=== PATIENT | male | born 1960 | race African-American/Black ===

== ENCOUNTER 2016-09-17 20:07 | Inpatient (IN) | payer OTHER ==
[2016-09-17 20:48] VITALS: BMI 29.7
--- NOTE | 2016-09-17 22:02 | HP ---
CIWA Score - CIWA Score Nausea/Vomitin Muscle Tremors: 3 Anxiety: 3 Agitation: 3 Paroxysmal Sweats: 2 Orientation: 0-Oriented Tacttile Disturbances: 2-Mild Itch/Numbness/Burn Auditory Disturbances: 2-Mild Harshness/Frighten Visual Disturbances: 2-Mild Sensitivity Headache: 2-Mild CIWA-Ar Total Score: 22 Admission ROS BHS - HPI Chief Complaint: i need help to stop drinking alcohol,cocaine and marijuana Allergies/Adverse Reactions: Allergies Allergy/AdvReac Type Severity Reaction Status Date / Time No Known Drug Allergies Allergy Verified 09/18/16 00:28 lactose AdvReac Severe Verified 09/18/16 00:28 babin AdvReac Severe Vomiting Uncoded 09/18/16 00:28 History of Present Illness: this 56 years old male with alcohol,cocaine and cannabis dependence,seeking detox,last treatment 2024 [facility] 07/23/14 to 07/27/14 syncope alcohol related hepatitis c treated mmtp 130 mgs/day,last medicated today,has bottle to take giovanni fot 09/18/16 depression longest period of sobriety 2 years Exam Limitations: No Limitations - Ebola screening Have you been sick,other than usual withdrawal symptoms: No - Review of Systems Constitutional: Loss of Appetite, Malaise, Night Sweats, Weakness, Unintentional Wgt. Loss EENT: reports: Nose Congestion Respiratory: reports: No Symptoms reported Cardiac: reports: No Symptoms Reported GI: reports: Diarrhea, Nausea, Vomiting, Abdominal cramping : reports: No Symptoms Reported Musculoskeletal: reports: Back Pain, Muscle Pain Integumentary: reports: Dryness Endocrine: reports: No Symptoms Reported Hematology: reports: No Symptoms Reported Psychiatric: reports: No Sypmtoms Reported, Judgement Intact, Mood/Affect Appropiate, Orientated x3, Depressed Patient History - Patient Medical History Hx Anemia: No Hx Asthma: Yes (on albuterol inhaler) Hx Chronic Obstructive Pulmonary Disease (COPD): No Hx Cancer: No Hx Cardiac Disorders: No Hx Congestive Heart Failure: No Hx Hypertension: No Hx Hypercholesterolemia: No Hx Pacemaker: No HX Cerebrovascular Accident: No Hx Seizures: No Hx Dementia: No Hx Diabetes: No Hx Gastrointestinal Disorders: Yes (GERD) Hx Liver Disease: Yes (cirrhosis) Hx Genitourinary Disorders: No Hx Sexually Transmitted Disorders: Yes (gONORRHEA & SYPHILIS) Hx Renal Disease (ESRD): Yes (PT WAS ON KIDNEY DYALISIS 10 YRS AGO) Hx Thyroid Disease: No Hx Human Immunodeficiency Virus (HIV): No (last 07/22 negative ) Hx Hepatitis C: Yes (treated) Hx Depression: Yes (on med) Hx Suicide Attempt: No Hx Bipolar Disorder: No Hx Schizophrenia: No Other Medical History: no suicidal,no homicidal - Patient Surgical History Past Surgical History: Yes Hx Neurologic Surgery: No Hx Cataract Extraction: No Hx Cardiac Surgery: No Hx Lung Surgery: No Hx Breast Surgery: No Hx Breast Biopsy: No Hx Abdominal Surgery: No Hx Appendectomy: No Hx Cholecystectomy: No Hx Genitourinary Surgery: No Hx Section: No Hx Orthopedic Surgery: Yes (lower back (fall) discectomy 20 years ago) - PPD History Previous Implant?: Yes Documented Results: Negative w/o proof Date: 08/03/14 PPD to be Administered?: Yes - Smoking Cessation Smoking history: Current every day smoker Have you smoked in the past 12 months: Yes Aproximately how many cigarettes per day: 10 Cigars Per Day: 20 Hx Chewing Tobacco Use: No Initiated information on smoking cessation: Yes 'Breaking Loose' booklet given: 09/17/16 - Substance & Tx. History Hx Alcohol Use: Yes Hx Substance Use: Yes Substance Use Type: Alcohol, Cocaine Hx Substance Use Treatment: Yes ([facility] 07/23/14 to 07/27/16) - Substances Abused Alcohol Route: Oral Frequency: Daily (3pi) Amount used: 3 pints of vodka,3of 24 ozs of beer Age of first use: 16 Date of Last Use: 09/17/16 Cocaine Route: Smoking Frequency: 1-3 times last 30 days Amount used: 200$ Age of first use: 30 Date of Last Use: 09/06/16 Marijuana/Hashish Route: Smoking Frequency: 3-6 times per week Amount used: 60$ Age of first use: 13 Date of Last Use: 09/06/16 Family Disease History - Family Disease History Family Disease History: Diabetes: Grandparent, [place]: Mother (mom a&w, survived breast ca), Other: Father (dec'd, alcohol ), Brother (none), Sister (2 a&w), Son (none), Daughter (1 a&w with stable asthma) Admission Physical Exam S - Vital Signs Vital Signs: Vital Signs - 24 hr 09/17/16 20:38 Temperature 98.2 F Pulse Rate 85 Respiratory 18 Rate Blood Pressure 136/77 - Physical General Appearance: Yes: Moderate Distress, Tremorous, Irritable, Sweating, Anxious HEENTM: Yes: Normocephalic, Normal Voice, ROMARIO, Pharynx Normal Respiratory: Yes: Lungs Clear, Normal Breath Sounds, No Respiratory Distress Neck: Yes: Within Normal Limits, Supple, Trachea in good position Breast: Yes: Within Normal Limits Cardiology: Yes: Within Normal Limits, Regular Rhythm, Regular Rate, S1, S2 Abdominal: Yes: Within Normal Limits, Normal Bowel Sounds, Non Tender, Flat, Soft Genitourinary: Yes: Within Normal Limits Back: Yes: Muscle Spasm Musculoskeletal: Yes: Back pain, Muscle Pain Extremities: Yes: Tremors Neurological: Yes: drug safety physician II-XII NML intact, Fully Oriented, Alert, Motor Strength 5/5 Integumentary: Yes: Dry Lymphatic: Yes: Within Normal Limits - Diagnostic (1) Alcohol dependence with uncomplicated withdrawal Current Visit: Yes Status: Acute (2) Cocaine dependence Current Visit: Yes Status: Acute (3) Asthma Current Visit: No Status: Chronic Comment: urge to avoid smoking, he will f/u with pcp, cont mdi's. (4) History of back surgery Current Visit: No Status: Chronic (5) Insomnia Current Visit: No Status: Chronic Comment: sleep hygiene reviewed (6) Low back pain Current Visit: No Status: Chronic Comment: MRI results reviewed - refer to neurosurg dr velazquez at [facility] for eval needs to do EMG dc robaxin as not helping , gentle stretches, topical voltaren Rx (7) Methadone maintenance therapy patient Current Visit: No Status: Chronic Comment: counselor Dacia (8) Nicotine dependence Current Visit: No Status: Chronic Comment: counseled cessation, Rx patch (9) Syncope Current Visit: No Status: Chronic (10) GERD (gastroesophageal reflux disease) Current Visit: Yes Status: Acute (11) Hepatitis C Current Visit: No Status: Chronic Comment: Continue to Monitor (12) Lactose intolerance in adult Current Visit: No Status: Chronic Comment: Pt reports improvement on abdominal discomfort. Pt is under much stress related to housing and relationships. Recently threatened his life and is concerned. Pt is seeing psychiatrist but missed last appointment. All repotrts show negative findings for abdominal abnormalities (pending endoscopy report which pt reports was "ok"). possibility that abdominal discomfort is stress-related or lactose intolerance. Pt has reduced lactose intake, however stress continues. Pt will discusse with sandi Rose, And will see psychiatrist in 6 days. Seroquel is prescribed for 7 days untile pt see psychiatrist. (13) History of syphilis Current Visit: Yes Status: Acute Cleared for Admission [facility] - Detox or Rehab [facility] Level of Care: Medically Managed Detox Regimen/Protocol: Librium [facility] Breath Alcohol Content Breath Alcohol Content: 0.168 Urine Drug Screen - Results Drug Screen Negative: No Urine Drug Screen Results: MTD-Methadone
[2016-09-17] MEDS ORDERED: IBUPROFEN 400 MG TABLET (FP) PO PRN (22:25)
[2016-09-17] MEDS ORDERED: MENTHOL/PHENOL 1 EACH UD MM PRN (22:25)
[2016-09-17] MEDS ORDERED: MAGNESIUM CITRATE 300 ML BOTTLE PO PRN (22:25)
[2016-09-17] MEDS ORDERED: P-EPHED 60MG/TRIPROLIDI 2.5MG TABLET PO PRN (22:25)
[2016-09-17] MEDS ORDERED: chlordiazePOXIDE HCL 25 MG CAPSULE PO PRN (22:25)
[2016-09-17] MEDS ORDERED: ACETAMINOPHEN 325 MG TABLET (FP) PO PRN (22:25)
[2016-09-17] MEDS ORDERED: LOPERAMIDE HCL 2 MG CAPSULE PO PRN (22:25)
[2016-09-17] MEDS ORDERED: hydrOXYzine PAMOATE 50 MG CAPSULE (FP) PO PRN (22:25)
[2016-09-17] MEDS ORDERED: guaiFENesin/D-METHORPHAN HB 10 ML UNIT-DOSE CUPS PO PRN (22:25)
[2016-09-17] MEDS ORDERED: chlordiazePOXIDE HCL 25 MG CAPSULE PO ONE (22:25)
[2016-09-17] MEDS ORDERED: MAG HYDROX/AL HYDROX/SIMETH 30 ML UNIT-DOSE CUP PO PRN (22:25)
[2016-09-17] MEDS ORDERED: MAGNESIUM HYDROX 2400MG/30ML ORAL SUSPENSION 30 ML CUP PO PRN (22:25)
[2016-09-17] MEDS ORDERED: ALBUTEROL SO4 6.7 GM HFA INHALER IH PRN (22:32)
[2016-09-18] MEDS: diphenhydrAMINE HCL 50 MG CAPSULE PO PRN ×2 (00:40→22:09)
[2016-09-18] MEDS: chlordiazePOXIDE HCL 25 MG CAPSULE PO SCH ×5 (00:57→22:09)
[2016-09-18] MEDS ORDERED: METHADONE HCL 10 MG TABLET ONE (04:46)
[2016-09-18] MEDS ORDERED: METHADONE HCL 40 MG DISPERSABLE TABLET ONE (04:47)
[2016-09-18] MEDS: METHADONE 120 MG, METHADONE 10 MG PO SCH (05:42)
[2016-09-18] MEDS ORDERED: METHADONE HCL 10 MG TABLET PO ONE (06:00)
[2016-09-18] MEDS: PRENATAL VITAMINS W/ FOLIC ACID TABLET (FP) PO SCH (10:06)
[2016-09-18] MEDS: NICOTINE 21 MG/24 HOURS TOPICAL PATCH TD SCH (10:06)
[2016-09-18] MEDS: BUDESONIDE/FORMETEROL FUMARATE 80/4.5 mcg INHALER IH SCH ×2 (10:07→23:58)
[2016-09-18 10:41] LABS: ALBUMIN 3.2 g/dl (3.4-5.0); ALK PHOS 97 U/L (45-117); ANION GAP 8 (8-16); BILIRUBIN,TOTAL 0.6 mg/dL (0.2-1.0); CALCIUM 8.1 mg/dL (8.5-10.1); CO2 28 mmol/L (21-32); GLUCOSE,RANDOM 100 mg/dL (74-106); SGOT/AST 32 U/L (15-37); SGPT/ALT 27 U/L (12-78)
[2016-09-18 10:48] LABS: WHITE BLOOD COUNT 7.2 K/mm3 (4.0-10.0)
[2016-09-18 10:56] LABS: MCH 29.3 pg (25.7-33.7); MCHC 32.7 g/dl (32.0-35.9); MEAN CELL VOLUME 89.6 fl (80-96); MEAN PLT VOLUME 8.4 fl (7.5-11.1); PLATELET COUNT 232 K/MM3 (134-434); RDW 13.9 % (11.9-15.9)
[2016-09-18 11:54] LABS: PH,URINE 5.5 (5.0-8.0); URINE APPEARANCE CLEAR; URINE BILIRUBIN NEGATIVE (NEGATIVE); URINE BLOOD NEGATIVE (NEGATIVE); URINE COLOR LT. YELLOW; URINE GLUCOSE (UA) NEGATIVE (NEGATIVE); URINE KETONE NEGATIVE (NEGATIVE); URINE LEUK ESTERASE NEGATIVE (NEGATIVE); URINE NITRITE NEGATIVE (NEGATIVE); URINE PROTEIN NEGATIVE (NEGATIVE); URINE UROBILINOGEN 0.2 mg/dL (0.2-1.0)
--- NOTE | 2016-09-18 13:53 | EKG ---
Test Reason : Blood Pressure : / mmHG Vent. Rate : 074 BPM Atrial Rate : 074 BPM P-R Int : 158 ms QRS Dur : 098 ms QT Int : 442 ms P-R-T Axes : 064 046 053 degrees QTc Int : 490 ms NORMAL SINUS RHYTHM PROLONGED QT ABNORMAL ECG WHEN COMPARED WITH ECG OF 19-AUG-2016 11:51, NO SIGNIFICANT CHANGE WAS FOUND Confirmed by LACHO BARBER, ALEXI ([id number]) on 09/18/2016 1:52:52 PM Referred By: Allen Yepez Confirmed By:ALEXI MONK MD
--- NOTE | 2016-09-18 15:18 | PN ---
S CIWA - CIWA Score Nausea/Vomitin Muscle Tremors: 4-Moderate,w/Arms Extend Anxiety: 4-Mod. Anxious/Guarded Agitation: 4-Moderately Restless Paroxysmal Sweats: 2 Orientation: 0-Oriented Tacttile Disturbances: 1-Very Mild Itch/Numbness Auditory Disturbances: 0-None Visual Disturbances: 0-None Headache: 3-Moderate CIWA-Ar Total Score: 21 BHS Progress Note (SOAP) Subjective: Headache, sweating, chills, tremor, diarrhea, interrupted sleep Objective: 09/18/16 15:17 Last Vital Signs Temp Pulse Resp BP Pulse Ox 97.4 F L 76 18 125/79 09/18/16 14:13 09/18/16 14:13 09/18/16 14:13 09/18/16 14:13 Laboratory Tests 09/18/16 09/18/16 09/18/16 08:00 08:00 08:45 WBC 7.2 RBC 4.33 Hgb 12.7 Hct 38.8 MCV 89.6 MCH 29.3 MCHC 32.7 RDW 13.9 Plt Count 232 MPV 8.4 Sodium 143 Potassium 3.8 Chloride 107 Carbon Dioxide 28 Anion Gap 8 BUN 13 D Creatinine 1.0 Creat Clearance w eGFR > 60 Random Glucose 100 Calcium 8.1 L Total Bilirubin 0.6 D AST 32 D ALT 27 Alkaline Phosphatase 97 Total Protein 6.0 L Albumin 3.2 L Urine Color Urine Appearance Urine pH Urine Protein Urine Glucose (UA) Urine Ketones Urine Blood Urine Nitrite Urine Bilirubin Urine Urobilinogen Ur Leukocyte Esterase RPR Titer Nonreactive 09/18/16 09:20 WBC RBC Hgb Hct MCV MCH MCHC RDW Plt Count MPV Sodium Potassium Chloride Carbon Dioxide Anion Gap BUN Creatinine Creat Clearance w eGFR Random Glucose Calcium Total Bilirubin AST ALT Alkaline Phosphatase Total Protein Albumin Urine Color Lt. yellow Urine Appearance Clear Urine pH 5.5 Urine Protein Negative Urine Glucose (UA) Negative Urine Ketones Negative Urine Blood Negative Urine Nitrite Negative Urine Bilirubin Negative Urine Urobilinogen 0.2 Ur Leukocyte Esterase Negative RPR Titer Labs noted Assessment: 09/18/16 15:17 Withdrawal symptoms Plan: Continue detox Encouraged to drink lots of water (water pitcher ordered)
[2016-09-18] MEDS: THIAMINE HCL 100 MG TABLET (FP) PO SCH (22:09)
[2016-09-19] MEDS: chlordiazePOXIDE HCL 25 MG CAPSULE PO SCH ×3 (05:58→17:36)
[2016-09-19] MEDS: METHADONE 120 MG, METHADONE 10 MG PO SCH ×2 (07:49→10:11)
[2016-09-19] MEDS ORDERED: METHADONE HCL 10 MG TABLET ONE (09:10)
[2016-09-19] MEDS ORDERED: METHADONE HCL 40 MG DISPERSABLE TABLET ONE (09:12)
[2016-09-19] MEDS ORDERED: METHADONE HCL 10 MG TABLET PO SCH (10:00)
[2016-09-19] MEDS: BUDESONIDE/FORMETEROL FUMARATE 80/4.5 mcg INHALER IH SCH ×2 (10:11→22:04)
[2016-09-19] MEDS: NICOTINE 21 MG/24 HOURS TOPICAL PATCH TD SCH (10:12)
[2016-09-19] MEDS: PRENATAL VITAMINS W/ FOLIC ACID TABLET (FP) PO SCH (10:12)
--- NOTE | 2016-09-19 10:59 | PN ---
[facility] CIWA - CIWA Score Nausea/Vomitin-Mild Nausea/No Vomiting Muscle Tremors: 4-Moderate,w/Arms Extend Anxiety: 4-Mod. Anxious/Guarded Agitation: 3 Paroxysmal Sweats: 3 Orientation: 0-Oriented Tacttile Disturbances: 0-None Auditory Disturbances: 0-None Visual Disturbances: 0-None Headache: 0-None Present CIWA-Ar Total Score: 15 S Progress Note (SOAP) Subjective: Anxiety,tremors,sweating,interrupted sleep. Objective: 09/19/16 10:55 Vital Signs - 8 hr 09/19/16 09/19/16 09/19/16 03:28 06:28 09:34 Temperature 96.9 F L 98.8 F Pulse Rate 72 83 Respiratory 16 16 20 Rate Blood Pressure 128/79 120/80 Laboratory Last Values WBC 7.2 K/mm3 (4.0-10.0) 09/18/16 08:45 RBC 4.33 M/mm3 (4.00-5.60) 09/18/16 08:45 Hgb 12.7 GM/dL (11.7-16.9) 09/18/16 08:45 Hct 38.8 % (35.4-49) 09/18/16 08:45 MCV 89.6 fl (80-96) 09/18/16 08:45 MCH 29.3 pg (25.7-33.7) 09/18/16 08:45 MCHC 32.7 g/dl (32.0-35.9) 09/18/16 08:45 RDW 13.9 % (11.9-15.9) 09/18/16 08:45 Plt Count 232 K/MM3 (134-434) 09/18/16 08:45 MPV 8.4 fl (7.5-11.1) 09/18/16 08:45 Sodium 143 mmol/L (136-145) 09/18/16 08:00 Potassium 3.8 mmol/L (3.5-5.1) 09/18/16 08:00 Chloride 107 mmol/L (98-107) 09/18/16 08:00 Carbon Dioxide 28 mmol/L (21-32) 09/18/16 08:00 Anion Gap 8 (8-16) 09/18/16 08:00 BUN 13 mg/dL (7-18) D 09/18/16 08:00 Creatinine 1.0 mg/dL (0.7-1.3) 09/18/16 08:00 Creat Clearance w eGFR > 60 (>60) 09/18/16 08:00 Random Glucose 100 mg/dL (74-106) 09/18/16 08:00 Calcium 8.1 mg/dL (8.5-10.1) L 09/18/16 08:00 Total Bilirubin 0.6 mg/dL (0.2-1.0) D 09/18/16 08:00 AST 32 U/L (15-37) D 09/18/16 08:00 ALT 27 U/L (12-78) 09/18/16 08:00 Alkaline Phosphatase 97 U/L (45-117) 09/18/16 08:00 Total Protein 6.0 g/dl (6.4-8.2) L 09/18/16 08:00 Albumin 3.2 g/dl (3.4-5.0) L 09/18/16 08:00 Urine Color Lt. yellow 09/18/16 09:20 Urine Appearance Clear 09/18/16 09:20 Urine pH 5.5 (5.0-8.0) 09/18/16 09:20 Ur Specific [place] <= 1.005 (1.005-1.025) 09/18/16 09:20 Urine Protein Negative (NEGATIVE) 09/18/16 09:20 Urine Glucose (UA) Negative (NEGATIVE) 09/18/16 09:20 Urine Ketones Negative (NEGATIVE) 09/18/16 09:20 Urine Blood Negative (NEGATIVE) 09/18/16 09:20 Urine Nitrite Negative (NEGATIVE) 09/18/16 09:20 Urine Bilirubin Negative (NEGATIVE) 09/18/16 09:20 Urine Urobilinogen 0.2 mg/dL (0.2-1.0) 09/18/16 09:20 Ur Leukocyte Esterase Negative (NEGATIVE) 09/18/16 09:20 RPR Titer Nonreactive (NONREACTIVE) 09/18/16 08:00 labs noted Assessment: 09/19/16 10:57 Withdrawal sx. Plan: Continue detox
--- NOTE | 2016-09-19 13:18 | CONSULT ---
[facility] Psychiatric Consult - Data Date of interview: 09/19/16 Admission source: [facility] Identifying data: Readmission to [facility] for this 56 y/o AA male seelking detox treatment on for opioid,cocaine,alcohol and mariuana dependence.Patient is single,a father of one,homeless,unemployed and supported on SSI benefits. Substance Abuse History: Confirmed by patient.Discussed in this session.Mr Loredo indicates that this report is an accurate account of his patterns of substance use. Smoking Cessation. Smoking history: Current every day smoker. Have you smoked in the past 12 months: Yes. Aproximately how many cigarettes per day: 10. Cigars Per Day: 20. Hx Chewing Tobacco Use: No. Initiated information on smoking cessation: Yes. 'Breaking Loose' booklet given: . - Substance & Tx. History. Hx Alcohol Use: Yes. Hx Substance Use: Yes. Substance Use Type: Alcohol, Cocaine. Hx Substance Use Treatment: Yes ([facility] to 07/27/16). - Substances Abused. Alcohol. Route: Oral. Frequency : Daily (3pi). Amount used: 3 pints of vodka,3of 24 ozs of beer. Age of first use: 16. Date of Last Use: 09/17/16. Cocaine. Route: Smoking. Frequency: 1-3 times last 30 days. Amount used: 200$. Age of first use: 30. Date of Last Use: 09/06/16. Marijuana/Hashish. Route: Smoking. Frequency: 3-6 times per week. Amount used: 60$. Age of first use: 13. Date of Last Use: 02/22 Medical History: Significant for bilateral carpal tunnel syndrome,COPD,vitamin D deficiency,GERD,liver cirrhosis,hepatitis C,bronchial asthma and a past history of treatment for gonorrhea + syphilis.Noted report of remote history of renal failure (managed with dialysis) 10 years ago + orthosurgery (discectomy) twenty years ago according to records. Psychiatric History: Patient denies history of psychiatric hospitalizations.Mr Loredo endorses the diagnosis of MDD and maintenance with seroquel 100 mg/hs + remeron 30 mg/hs.Patient is under the care of psychiatrist Dr Farah at the [facility] methadone program (130 mg/day).No reported history of suicide attempts. Physical/Sexual Abuse/Trauma History: Patient denies. Additional Comment: Urine Drug Screen Results: MTD-Methadone.Noted. Mental Status Exam - Mental Status Exam Alert and Oriented to: Time, Person Cognitive Function: Good Patient Appearance: Well Groomed Mood: Hopeful, Euthymic Affect: Appropriate, Normal Range Patient Behavior: Appropriate, Cooperative Speech Pattern: Clear Voice Loudness: Normal Thought Process: Goal Oriented Thought Disorder: Not Present Hallucinations: Denies Suicidal Ideation: Denies Homicidal Ideation: Denies Insight/Judgement: Poor Sleep: Poorly, Difficulty falling asleep Appetite: Good Muscle strength/Tone: Normal Gait/Station: Normal Psychiatric Findings - Problem List ([place] 1, 2,3) (1) Alcohol dependence with uncomplicated withdrawal Current Visit: Yes Status: Acute (2) Opioid dependence on agonist therapy Current Visit: Yes Status: Acute (3) Cocaine dependence Current Visit: Yes Status: Acute (4) Nicotine dependence Current Visit: Yes Status: Acute Comment: counseled cessation, Rx patch (5) Drug-induced mood disorder Current Visit: Yes Status: Acute (6) GERD (gastroesophageal reflux disease) Current Visit: Yes Status: Chronic (7) Back pain Current Visit: Yes Status: Chronic Comment: Consider work -up, X-rays, MRI, Referral to orthopedist (8) History of syphilis Current Visit: Yes Status: Chronic (9) Asthma Current Visit: Yes Status: Chronic Comment: urge to avoid smoking, he will f/u with pcp, cont mdi's. (10) Hepatitis C Current Visit: Yes Status: Chronic Comment: Continue to Monitor (11) History of back surgery Current Visit: Yes Status: Chronic (12) Carpal tunnel syndrome, bilateral Current Visit: Yes Status: Chronic Comment: still needs to do EMG will Rx cock up splints (Rx gave again, referred to try [facility] surgical supply as he is having a hard time finding someone who takes his insurance) carpal stretches reviewed (13) Lactose intolerance in adult Current Visit: Yes Status: Chronic Comment: Pt reports improvement on abdominal discomfort. Pt is under much stress related to housing and relationships. Recently threatened his life and is concerned. Pt is seeing psychiatrist but missed last appointment. All repotrts show negative findings for abdominal abnormalities (pending endoscopy report which pt reports was "ok"). possibility that abdominal discomfort is stress-related or lactose intolerance. Pt has reduced lactose intake, however stress continues. Pt will discusse with sandi Rose, And will see psychiatrist in 6 days. Seroquel is prescribed for 7 days untile pt see psychiatrist. (14) Vitamin D deficiency Current Visit: Yes Status: Chronic Comment: D = 22 - will replete with D [id number] biw and monitor ongoing (15) Insomnia Current Visit: No Status: Chronic Comment: sleep hygiene reviewed - Initial Treatment Plan Initial Treatment Plan: Psychoeducation.Detoxification in progress.Medications : seroquel 100 mg po hs + remeron 15 mg po hs (reduced as a precaution against oversedation).Side effects/benefits of both drugs are discussed with the patient.Mr Loredo agrees to follow this careplan.Observation.
[2016-09-19] MEDS: THIAMINE HCL 100 MG TABLET (FP) PO SCH (22:04)
[2016-09-19] MEDS: QUEtiapine FUMARATE 100 MG TABLET (FP) PO SCH (22:04)
[2016-09-19] MEDS: MIRTAZAPINE 15 MG TABLET (FP) PO SCH (22:04)
[2016-09-19] MEDS: chlordiazePOXIDE 5 MG CAPSULE PO SCH (22:04)
[2016-09-20] MEDS: chlordiazePOXIDE 5 MG CAPSULE PO SCH ×3 (05:45→16:56)
[2016-09-20] MEDS ORDERED: METHADONE HCL 10 MG TABLET ONE (08:45)
[2016-09-20] MEDS ORDERED: METHADONE HCL 40 MG DISPERSABLE TABLET ONE (08:46)
--- NOTE | 2016-09-20 09:06 | PN ---
BHS Progress Note (SOAP) Subjective: Sweating,interrupted sleep,restless Objective: 09/20/16 09:05 Vital Signs - 8 hr 09/20/16 06:14 Temperature 97.4 F L Pulse Rate 70 Respiratory 16 Rate Blood Pressure 139/81 Laboratory Last Values WBC 7.2 K/mm3 (4.0-10.0) 09/18/16 08:45 RBC 4.33 M/mm3 (4.00-5.60) 09/18/16 08:45 Hgb 12.7 GM/dL (11.7-16.9) 09/18/16 08:45 Hct 38.8 % (35.4-49) 09/18/16 08:45 MCV 89.6 fl (80-96) 09/18/16 08:45 MCH 29.3 pg (25.7-33.7) 09/18/16 08:45 MCHC 32.7 g/dl (32.0-35.9) 09/18/16 08:45 RDW 13.9 % (11.9-15.9) 09/18/16 08:45 Plt Count 232 K/MM3 (134-434) 09/18/16 08:45 MPV 8.4 fl (7.5-11.1) 09/18/16 08:45 Sodium 143 mmol/L (136-145) 09/18/16 08:00 Potassium 3.8 mmol/L (3.5-5.1) 09/18/16 08:00 Chloride 107 mmol/L (98-107) 09/18/16 08:00 Carbon Dioxide 28 mmol/L (21-32) 09/18/16 08:00 Anion Gap 8 (8-16) 09/18/16 08:00 BUN 13 mg/dL (7-18) D 09/18/16 08:00 Creatinine 1.0 mg/dL (0.7-1.3) 09/18/16 08:00 Creat Clearance w eGFR > 60 (>60) 09/18/16 08:00 Random Glucose 100 mg/dL (74-106) 09/18/16 08:00 Calcium 8.1 mg/dL (8.5-10.1) L 09/18/16 08:00 Total Bilirubin 0.6 mg/dL (0.2-1.0) D 09/18/16 08:00 AST 32 U/L (15-37) D 09/18/16 08:00 ALT 27 U/L (12-78) 09/18/16 08:00 Alkaline Phosphatase 97 U/L (45-117) 09/18/16 08:00 Total Protein 6.0 g/dl (6.4-8.2) L 09/18/16 08:00 Albumin 3.2 g/dl (3.4-5.0) L 09/18/16 08:00 Urine Color Lt. yellow 09/18/16 09:20 Urine Appearance Clear 09/18/16 09:20 Urine pH 5.5 (5.0-8.0) 09/18/16 09:20 Ur Specific [place] <= 1.005 (1.005-1.025) 09/18/16 09:20 Urine Protein Negative (NEGATIVE) 09/18/16 09:20 Urine Glucose (UA) Negative (NEGATIVE) 09/18/16 09:20 Urine Ketones Negative (NEGATIVE) 09/18/16 09:20 Urine Blood Negative (NEGATIVE) 09/18/16 09:20 Urine Nitrite Negative (NEGATIVE) 09/18/16 09:20 Urine Bilirubin Negative (NEGATIVE) 09/18/16 09:20 Urine Urobilinogen 0.2 mg/dL (0.2-1.0) 09/18/16 09:20 Ur Leukocyte Esterase Negative (NEGATIVE) 09/18/16 09:20 RPR Titer Nonreactive (NONREACTIVE) 09/18/16 08:00 labs noted Assessment: 09/20/16 09:06 Withdrawal sx. Plan: Continue detox
[2016-09-20] MEDS: METHADONE 120 MG, METHADONE 10 MG PO SCH (10:07)
[2016-09-20] MEDS: BUDESONIDE/FORMETEROL FUMARATE 80/4.5 mcg INHALER IH SCH ×2 (10:07→22:26)
[2016-09-20] MEDS: PRENATAL VITAMINS W/ FOLIC ACID TABLET (FP) PO SCH (10:08)
[2016-09-20] MEDS: NICOTINE 21 MG/24 HOURS TOPICAL PATCH TD SCH (10:09)
[2016-09-20] MEDS: QUEtiapine FUMARATE 100 MG TABLET (FP) PO SCH (22:25)
[2016-09-20] MEDS: THIAMINE HCL 100 MG TABLET (FP) PO SCH (22:26)
[2016-09-20] MEDS: MIRTAZAPINE 15 MG TABLET (FP) PO SCH (22:26)
[2016-09-20] MEDS: chlordiazePOXIDE HCL 10 MG CAPSULE PO SCH (22:26)
[2016-09-21] MEDS: chlordiazePOXIDE HCL 10 MG CAPSULE PO SCH ×2 (06:04→10:10)
[2016-09-21] MEDS ORDERED: METHADONE HCL 40 MG DISPERSABLE TABLET ONE (09:17)
[2016-09-21] MEDS ORDERED: METHADONE HCL 10 MG TABLET ONE (09:17)
[2016-09-21 09:53] VITALS: BP 136/84; PULSE 100; TEMP 97.4
[2016-09-21] MEDS: NICOTINE 21 MG/24 HOURS TOPICAL PATCH TD SCH (10:09)
[2016-09-21] MEDS: METHADONE 120 MG, METHADONE 10 MG PO SCH (10:09)
[2016-09-21] MEDS: PRENATAL VITAMINS W/ FOLIC ACID TABLET (FP) PO SCH (10:09)
[2016-09-21] MEDS: BUDESONIDE/FORMETEROL FUMARATE 80/4.5 mcg INHALER IH SCH (10:09)
--- NOTE | 2016-09-21 11:07 | DS ---
[facility] Detox Discharge Summary Admission Date: 09/17/16 Discharge Date: 09/21/16 - History Present History: Alcohol Dependence, Cocaine Dependence, MMTP Additional Comments: PT. RETURNING TO [facility] MMTP PROGRAM AND [facility]IENT [facility]REATMENT CLINIC. PATIENT ADVISED TO FOLLOW-UP THERE FOR AFTERCARE PER DISCHARGE ARRANGEMENT. Pertinent Past History: COPD, MMTP, Carpal Tunnel Syndrome, History of Syncope, Asthma, GERD, Insomnia, Hep C, Low Back pain, Vitamin D Deficiency, Lactose Intolerance. - Physical Exam Results Vital Signs: Vital Signs Temperature 97.4 F L 09/21/16 09:53 Pulse Rate 100 H 09/21/16 09:53 Respiratory Rate 18 09/21/16 09:53 Blood Pressure 136/84 09/21/16 09:53 O2 Sat by Pulse Oximetry (%) Pertinent Admission Physical Exam Findings: WITHDRAWAL SYMPTOMS. Laboratory Tests 09/18/16 09/18/16 09/18/16 08:00 08:00 08:45 WBC 7.2 RBC 4.33 Hgb 12.7 Hct 38.8 MCV 89.6 MCH 29.3 MCHC 32.7 RDW 13.9 Plt Count 232 MPV 8.4 Sodium 143 Potassium 3.8 Chloride 107 Carbon Dioxide 28 Anion Gap 8 BUN 13 D Creatinine 1.0 Creat Clearance w eGFR > 60 Random Glucose 100 Calcium 8.1 L Total Bilirubin 0.6 D AST 32 D ALT 27 Alkaline Phosphatase 97 Total Protein 6.0 L Albumin 3.2 L Urine Color Urine Appearance Urine pH Ur Specific [place] Urine Protein Urine Glucose (UA) Urine Ketones Urine Blood Urine Nitrite Urine Bilirubin Urine Urobilinogen Ur Leukocyte Esterase RPR Titer Nonreactive 09/18/16 09:20 WBC RBC Hgb Hct MCV MCH MCHC RDW Plt Count MPV Sodium Potassium Chloride Carbon Dioxide Anion Gap BUN Creatinine Creat Clearance w eGFR Random Glucose Calcium Total Bilirubin AST ALT Alkaline Phosphatase Total Protein Albumin Urine Color Lt. yellow Urine Appearance Clear Urine pH 5.5 Ur Specific [place] <= 1.005 Urine Protein Negative Urine Glucose (UA) Negative Urine Ketones Negative Urine Blood Negative Urine Nitrite Negative Urine Bilirubin Negative Urine Urobilinogen 0.2 Ur Leukocyte Esterase Negative RPR Titer LABS NOTED. - Treatment Hospital Course: Detox Protocol Followed, Detoxed Safely, Responded well, Discharged Condition Good Patient has Accepted a Rehab Referral to: PT. RETURNING TO [facility] MMTP PROGRAM AND [facility]. - Medication Discharge Medications: Ambulatory Orders Mirtazapine [Remeron -] 30 mg PO HS #30 tablet 08/26/14 Cholecalciferol (Vitamin D3) [Vitamin D3] 50,000 unit PO MOFR 08/27/15 Famotidine [Pepcid -] 20 mg PO DAILY 08/27/15 Nortriptyline HCl [Pamelor -] 25 mg PO HS 10/29/15 Nadolol 1 tab PO DAILY #30 tablet 02/04/16 Albuterol Sulfate Inhaler - [Ventolin HFA Inhaler -] 2 inh PO PRN PRN #1 cartridge 08/19/16 Budesonide/Formeterol Fumarate [SYMBICORT 80/4.5mcg -] 1 inh PO BID #1 cartridge 08/19/16 Cholecalciferol (Vitamin D3) [D3-50] 50,000 unit PO WEEKLY #8 capsule 08/19/16 Thiamine HCl [Vitamin B1 -] 100 mg PO HS #30 tablet 08/19/16 Quetiapine Fumarate [Seroquel] 100 tab PO DAILY #6 tab 09/02/16 Mirtazapine [Remeron -] 30 mg PO HS #30 tablet 09/19/16 Quetiapine Fumarate [Seroquel] 100 mg PO HS #30 tablet 09/19/16 - Diagnosis (1) Alcohol dependence with uncomplicated withdrawal Status: Acute (2) Cocaine dependence Status: Acute Qualifiers: Substance use status: uncomplicated Qualified Code(s): F14.20 - Cocaine dependence, uncomplicated (3) Drug-induced mood disorder Status: Acute (4) Nicotine dependence Status: Chronic Qualifiers: Nicotine product type: cigarettes Substance use status: uncomplicated Qualified Code(s): F17.210 - Nicotine dependence, cigarettes, uncomplicated (5) Opioid dependence on agonist therapy Status: Chronic (6) Asthma Status: Chronic Qualifiers: Asthma severity: mild persistent Asthma complication type: uncomplicated Qualified Code(s): J45.30 - Mild persistent asthma, uncomplicated (7) COPD (chronic obstructive pulmonary disease) Status: Chronic Qualifiers: COPD type: unspecified COPD Qualified Code(s): J44.9 - Chronic obstructive pulmonary disease, unspecified (8) Carpal tunnel syndrome, bilateral Status: Chronic (9) GERD (gastroesophageal reflux disease) Status: Chronic Qualifiers: Esophagitis presence: esophagitis presence not specified Qualified Code(s): K21.9 - Gastro-esophageal reflux disease without esophagitis (10) Hepatitis C Status: Chronic Qualifiers: Viral hepatitis chronicity: chronic Hepatic coma status: without hepatic coma Qualified Code(s): B18.2 - Chronic viral hepatitis C (11) History of back surgery Status: Chronic (12) History of syphilis Status: Chronic (13) Insomnia Status: Chronic Qualifiers: Insomnia type: unspecified Qualified Code(s): G47.00 - Insomnia, unspecified (14) Lactose intolerance in adult Status: Chronic (15) Methadone maintenance therapy patient Status: Chronic - AMA Did Patient Leave Against Medical Advice: No
== END 2016-09-21 10:54 | disposition home or self-care (01) | DRG 773 ==
LOC: YASAS 20:07 → Y3N 22:26
PROVIDERS: ADMIT Internal Medicine; ATTEND Internal Medicine
PROC: HZ2ZZZZ Detoxification Services for Substance Abuse Treatment (ICD-10-PCS; principal; 2016-09-17)
DX: F10.230 Alcohol dependence with withdrawal, uncomplicated (principal); F11.20 Opioid dependence, uncomplicated; F14.20 Cocaine dependence, uncomplicated; F17.210 Nicotine dependence, cigarettes, uncomplicated; F19.24 Other psychoactive substance dependence with psychoactive substance-induced mood disorder; J45.30 Mild persistent asthma, uncomplicated; J44.9 Chronic obstructive pulmonary disease, unspecified; G56.03 Carpal tunnel syndrome, bilateral upper limbs; K21.9 Gastro-esophageal reflux disease without esophagitis; B18.2 Chronic viral hepatitis C; G47.00 Insomnia, unspecified; E73.9 Lactose intolerance, unspecified; Z87.438 Personal history of other diseases of male genital organs
CPT/HCPCS: 36415; 80053; 81003; 85027; 86593; 93005; 93010

== ENCOUNTER 2016-11-01 10:45 | Inpatient (IN) | payer OTHER ==
[2016-11-01 12:43] VITALS: BMI 27.8
--- NOTE | 2016-11-01 13:09 | HP ---
Screened but not Admitted - Documentation of Visit Screened but not Admitted: Yes Left Prior to Completion of Assessment: No Insurance Authorization Denied: No Patient Does Not Meet Criteria for Admission: Yes Level of Care Recommended at this Time: Other ([facility], [place], [place] Alternative Treatment/Prison Info Provided: No Additional Information/Explanation: PATIENT DOES NOT MEET CRITERIA FOR ADMISSION TO DETOX AT THIS TIME. PATIENT REFERRED TO [facility] ([place], [place] . ARRANGEMENTS MADE FOR PATIENT TO BE DIRECTLY PICKED UP BY [facility] TRANSPORTATION.
--- NOTE | 2016-11-01 18:20 | HP ---
CIWA Score - CIWA Score Nausea/Vomitin-Mild Nausea/No Vomiting Muscle Tremors: 4-Moderate,w/Arms Extend Anxiety: 4-Mod. Anxious/Guarded Agitation: 4-Moderately Restless Paroxysmal Sweats: 1-Minimal Palms Moist Orientation: 0-Oriented Tacttile Disturbances: 0-None Auditory Disturbances: 0-None Visual Disturbances: 0-None Headache: 0-None Present CIWA-Ar Total Score: 14 Admission ROS BHS - HPI Chief Complaint: WITHDRAWAL SX Allergies/Adverse Reactions: Allergies Allergy/AdvReac Type Severity Reaction Status Date / Time lactose AdvReac Vomiting Verified 11/01/16 16:56 NKDA Allergy Uncoded 11/01/16 16:56 mayonnaise AdvReac Vomiting Uncoded 11/01/16 16:55 History of Present Illness: 56 YEARS OLD MALE WITH LONG HISTORY OF ALCOHOL MARIJUANA COCAINE PCP NICOTINE DEPENDENCE HAS ASTHMA GERD COPD AND DEPRESSION IS ADMITTED TO DETOX PATIENT STATES THAT [facility] DOES NOT HAVE BED AVAILABLE FOR HIM TODAY, RECEIVED ONSITE COORDINATOR REPORTS THAT THE PATIENT CAN BE ADMITTED TO [facility] Limitations: No Limitations - Ebola screening Have you traveled outside of the country in the last 21 days: No Have you had contact with anyone from an Ebola affected area: No Have you been sick,other than usual withdrawal symptoms: No Do you have a fever: No - Review of Systems Constitutional: Changes in sleep, Weight Stable EENT: reports: Blurred Vision (NEED READING GLASSES), Dental Problems (MULTIPLE TEETH MISSING) Respiratory: reports: SOB with Exertion, Productive cough (YELLOWISH) Cardiac: reports: No Symptoms Reported GI: reports: Nausea, Poor Fluid Intake, Indigestion, Abdominal cramping : reports: No Symptoms Reported Musculoskeletal: reports: Back Pain, Joint Pain, Muscle Pain, Neck Pain Integumentary: reports: No Symptoms Reported Neuro: reports: Tremors Endocrine: reports: No Symptoms Reported Hematology: reports: No Symptoms Reported Psychiatric: reports: Judgement Intact, Orientated x3, Anxious, Depressed Other Systems: Reviewed and Negative Patient History - Patient Medical History Hx Anemia: No Hx Asthma: Yes Hx Chronic Obstructive Pulmonary Disease (COPD): Yes Hx Cancer: No Hx Cardiac Disorders: No Hx Congestive Heart Failure: No Hx Hypertension: No Hx Hypercholesterolemia: No Hx Pacemaker: No HX Cerebrovascular Accident: No Hx Seizures: No Hx Dementia: No Hx Diabetes: No Hx Gastrointestinal Disorders: Yes (acid reflux) Hx Liver Disease: Yes (cirrhosis) Hx Genitourinary Disorders: No Hx Sexually Transmitted Disorders: No Hx Renal Disease (ESRD): No Hx Thyroid Disease: No Hx Human Immunodeficiency Virus (HIV): No (last 07/22 negative ) Hx Hepatitis C: Yes (treated) Hx Depression: Yes Hx Suicide Attempt: No Hx Bipolar Disorder: No Hx Schizophrenia: No - Patient Surgical History Past Surgical History: Yes Hx Neurologic Surgery: No Hx Cataract Extraction: No Hx Cardiac Surgery: No Hx Lung Surgery: No Hx Breast Surgery: No Hx Breast Biopsy: No Hx Abdominal Surgery: No Hx Appendectomy: No Hx Cholecystectomy: No Hx Genitourinary Surgery: No Hx Orthopedic Surgery: Yes (lower back (fall) discectomy 20 years ago) Anesthesia Reaction: No - PPD History Previous Implant?: Yes Documented Results: Negative w/proof Implanted On Prior [facility] Admission?: Yes Date: 09/20/16 Results: 0 mm PPD to be Administered?: No - Smoking Cessation Smoking history: Current every day smoker Have you smoked in the past 12 months: Yes Aproximately how many cigarettes per day: 20 Cigars Per Day: 0 Hx Chewing Tobacco Use: No Initiated information on smoking cessation: Yes 'Breaking Loose' booklet given: 11/01/16 - Substance & Tx. History Hx Alcohol Use: Yes Hx Substance Use: Yes Substance Use Type: Alcohol, Cocaine, Heroin, Marijuana, Tranquilizers Hx Substance Use Treatment: Yes (09/17-09/29/16 [facility]) - Substances Abused Heroin Route: Inhalation Frequency: Daily Amount used: 1-2 bags Age of first use: 20 Date of Last Use: 10/30/16 Alcohol-vodka/beer Route: Oral Frequency: Daily Amount used: 3 pts./1-6 pk. Age of first use: 15 Date of Last Use: 11/01/16 Marijuana Route: Smoking Frequency: 3-6 times per week Amount used: $10 Age of first use: 16 Date of Last Use: 10/30/16 Family Disease History - Family Disease History Family Disease History: Diabetes: Grandparent, [place]: Mother (mom a&w, survived breast ca), Other: Father (dec'd, alcohol ), Brother (none), Sister (2 a&w), Son (none), Daughter (1 a&w with stable asthma) Admission Physical Exam S - Vital Signs Vital Signs: Vital Signs - 24 hr 11/01/16 12:25 Temperature 96.2 F L Pulse Rate 96 H Respiratory 20 Rate Blood Pressure 129/91 - Physical General Appearance: Yes: Nourished, Appropriately Dressed, Mild Distress, Tremorous, Irritable, Sweating, Anxious HEENTM: Yes: Hearing grossly Normal, Normal ENT Inspection, Normocephalic, Normal Voice Respiratory: Yes: Chest Non-Tender, No Respiratory Distress, No Accessory Muscle Use, Rhonchi, Wheezing, Hyperresonant Neck: Yes: Supple, Trachea in good position Breast: Yes: Breasts Symetrical Cardiology: Yes: Regular Rhythm, S1, S2, Tachycardia Abdominal: Yes: Non Tender, Soft, Increased Bowel Sounds Genitourinary: Yes: Within Normal Limits Back: Yes: Normal Inspection, Surgical Scar Musculoskeletal: Yes: full range of Motion, Gait Steady, Back pain, Joint Stiffness (LUMBAR), Muscle Pain Extremities: Yes: Normal Inspection, Normal Range of Motion, Non-Tender, Tremors Neurological: Yes: Fully Oriented, Alert, Motor Strength 5/5, Normal Response, Depressed Affect Integumentary: Yes: Warm Lymphatic: Yes: Within Normal Limits - Diagnostic (1) Alcohol dependence with uncomplicated withdrawal Current Visit: Yes Status: Acute (2) Asthma Current Visit: Yes Status: Acute Qualifiers: Asthma severity: mild persistent Asthma complication type: uncomplicated Qualified Code(s): J45.30 - Mild persistent asthma, uncomplicated Comment: urge to avoid smoking, he will f/u with pcp, cont mdi's. (3) COPD (chronic obstructive pulmonary disease) Current Visit: Yes Status: Chronic Qualifiers: COPD type: emphysema Emphysema type: unilateral Qualified Code(s ): J43.0 - Unilateral pulmonary emphysema [MacLeod's syndrome] Comment: counseled stop smoking, counseled to adhere to inhalers, needs pulmonary eval/f/u (4) GERD (gastroesophageal reflux disease) Current Visit: Yes Status: Chronic Qualifiers: Esophagitis presence: esophagitis presence not specified Qualified Code(s): K21.9 - Gastro-esophageal reflux disease without esophagitis (5) Hepatitis C Current Visit: Yes Status: Resolved Qualifiers: Viral hepatitis chronicity: chronic Hepatic coma status: without hepatic coma Qualified Code(s): B18.2 - Chronic viral hepatitis C Comment: Continue to Monitor (6) Methadone maintenance therapy patient Current Visit: Yes Status: Chronic Comment: 120 MG VERIFICATION PENDING (7) Nicotine dependence Current Visit: Yes Status: Acute Qualifiers: Nicotine product type: cigarettes Substance use status: in withdrawal Qualified Code(s): F17.213 - Nicotine dependence, cigarettes, with withdrawal Comment: counseled cessation, Rx patch Cleared for Admission [facility] - Detox or Rehab [facility] Level of Care: Medically Managed Detox Regimen/Protocol: Librium [facility] Breath Alcohol Content Breath Alcohol Content: 0 Urine Drug Screen - Results Drug Screen Negative: No Urine Drug Screen Results: THC-Marijuana, MICHAELA-Cocaine, OPI-Opiates, PCP- Phencyclidine, BZO-Benzodiazepines, MTD-Methadone
[2016-11-01] MEDS ORDERED: diphenhydrAMINE HCL 50 MG CAPSULE PO PRN (18:25)
[2016-11-01] MEDS ORDERED: NICOTINE POLACRILEX 2 MG GUM BC PRN (18:25)
[2016-11-01] MEDS ORDERED: MAGNESIUM CITRATE 300 ML BOTTLE PO PRN (18:25)
[2016-11-01] MEDS ORDERED: LOPERAMIDE HCL 2 MG CAPSULE PO PRN (18:25)
[2016-11-01] MEDS ORDERED: chlordiazePOXIDE HCL 25 MG CAPSULE PO PRN (18:25)
[2016-11-01] MEDS ORDERED: MAG HYDROX/AL HYDROX/SIMETH 30 ML UNIT-DOSE CUP PO PRN (18:25)
[2016-11-01] MEDS ORDERED: MENTHOL/PHENOL 1 EACH UD MM PRN (18:25)
[2016-11-01] MEDS ORDERED: MAGNESIUM HYDROX 2400MG/30ML ORAL SUSPENSION 30 ML CUP PO PRN (18:25)
[2016-11-01] MEDS ORDERED: ACETAMINOPHEN 325 MG TABLET (FP) PO PRN (18:25)
[2016-11-01] MEDS ORDERED: P-EPHED 60MG/TRIPROLIDI 2.5MG TABLET PO PRN (18:25)
[2016-11-01] MEDS ORDERED: ALBUTEROL SO4 6.7 GM HFA INHALER IH PRN (18:26)
[2016-11-01] MEDS ORDERED: ALBUTEROL SO4 2.5/IPRATROPIUM 0.5 INH SOL 3 ML VIAL.NEB. NEB PRN (18:27)
[2016-11-01] MEDS ORDERED: chlordiazePOXIDE HCL 25 MG CAPSULE PO ONE (19:00)
[2016-11-01] MEDS: THIAMINE HCL 100 MG TABLET (FP) PO SCH (22:12)
[2016-11-01] MEDS: BUDESONIDE/FORMETEROL FUMARATE 80/4.5 mcg INHALER IH SCH (22:12)
[2016-11-01] MEDS: RANITIDINE HCL 150 MG TABLET (FP) PO SCH (22:13)
[2016-11-01] MEDS: chlordiazePOXIDE HCL 25 MG CAPSULE PO SCH (22:13)
[2016-11-01] MEDS: LIDOCAINE PATCH REMOVAL MC SCH (22:37)
[2016-11-02 01:33] LABS: URINE APPEARANCE SLCLOUDY; URINE BILIRUBIN NEGATIVE (NEGATIVE); URINE BLOOD NEGATIVE (NEGATIVE); URINE COLOR DKYELLOW; URINE GLUCOSE (UA) NEGATIVE (NEGATIVE); URINE KETONE TRACE (NEGATIVE); URINE LEUK ESTERASE NEGATIVE (NEGATIVE); URINE NITRITE NEGATIVE (NEGATIVE); URINE PROTEIN NEGATIVE (NEGATIVE); URINE UROBILINOGEN NEGATIVE mg/dL (0.2-1.0)
[2016-11-02] MEDS: METHOCARBAMOL 500 MG TABLET PO PRN ×2 (05:46→09:44)
[2016-11-02] MEDS: chlordiazePOXIDE HCL 25 MG CAPSULE PO SCH ×4 (05:46→22:08)
[2016-11-02] MEDS: LIDOCAINE 5% TOPICAL PATCH TP SCH (09:42)
[2016-11-02] MEDS: BUDESONIDE/FORMETEROL FUMARATE 80/4.5 mcg INHALER IH SCH ×2 (09:42→22:08)
[2016-11-02] MEDS: PRENATAL VITAMINS W/ FOLIC ACID TABLET (FP) PO SCH (09:44)
[2016-11-02] MEDS: RANITIDINE HCL 150 MG TABLET (FP) PO SCH ×2 (09:45→22:08)
[2016-11-02] MEDS: METHADONE HCL 40 MG DISPERSABLE TABLET PO SCH (09:46)
[2016-11-02] MEDS: NICOTINE 21 MG/24 HOURS TOPICAL PATCH TD SCH (09:47)
--- NOTE | 2016-11-02 09:52 | EKG ---
Test Reason : Blood Pressure : / mmHG Vent. Rate : 084 BPM Atrial Rate : 084 BPM P-R Int : 146 ms QRS Dur : 096 ms QT Int : 382 ms P-R-T Axes : 063 051 055 degrees QTc Int : 451 ms NORMAL SINUS RHYTHM NORMAL ECG WHEN COMPARED WITH ECG OF 17-SEP-2016 23:17, NO SIGNIFICANT CHANGE WAS FOUND Confirmed by CLAY MEYER MD ([id number]) on 11/02/2016 9:52:26 AM Referred By: Confirmed By:CLAY MEYER MD
[2016-11-02] MEDS ORDERED: ERGOCALCIFEROL (VITAMIN D2) 50,000 UNIT CAPSULE (FP) PO SCH (10:00)
[2016-11-02 10:02] LABS: MCH 31.2 pg (25.7-33.7); MCHC 32.6 g/dl (32.0-35.9); MEAN CELL VOLUME 95.6 fl (80-96); MEAN PLT VOLUME 8.3 fl (7.5-11.1); PLATELET COUNT 294 K/MM3 (134-434); RDW 15.6 % (11.9-15.9); WHITE BLOOD COUNT 8.9 K/mm3 (4.0-10.0)
[2016-11-02] MEDS: PATIENT'S OWN MEDICATION (NON-FORMULARY) (Ipratropium/Albuterol Sulfate [Combivent Respima IH SCH ×5 (10:46→22:07)
[2016-11-02 10:57] LABS: ALK PHOS 87 U/L (45-117); ANION GAP 9 (8-16); BILIRUBIN,TOTAL 0.6 mg/dL (0.2-1.0); CALCIUM 8.7 mg/dL (8.5-10.1); CO2 28 mmol/L (21-32); CREATININE 0.8 mg/dL (0.7-1.3); GLUCOSE,RANDOM 87 mg/dL (74-106); SGOT/AST 38 U/L (15-37); SGPT/ALT 32 U/L (12-78); TOT PROT 6.2 g/dl (6.4-8.2)
[2016-11-02 12:01] LABS: HIV 1 & 2 AB NEGATIVE; HIV 1 AGp24 NEGATIVE
--- NOTE | 2016-11-02 12:08 | CONSULT ---
[facility] Psychiatric Consult - Data Date of interview: 11/02/16 Admission source: [facility] Identifying data: One of multiple admissions to [facility] for this 56 y/o AA male seeking detox treatment on for opioid,cocaine,alcohol, phencyclidine and marihuana dependence.Patient is ( two weeks ago from a heart attack,as per patient),a father of four (patient aknowledged one offspring in our most recent encounter),currently domiciled,unemployed and supported on SSI benefits. Substance Abuse History: Discussed with patient in this interview.Mr Loredo validated this report. Smoking Cessation. Smoking history: Current every day smoker. Have you smoked in the past 12 months: Yes. Aproximately how many cigarettes per day: 20. Cigars Per Day: 0. Hx Chewing Tobacco Use: No. Initiated information on smoking cessation: Yes. 'Breaking Loose' booklet given : 11/01/16. - Substance & Tx. History. Hx Alcohol Use: Yes. Hx Substance Use : Yes. Substance Use Type: Alcohol, Cocaine, Heroin, Marijuana, Tranquilizers. Hx Substance Use Treatment: Yes (09/17-09/29/16 [facility]). - Substances Abused. Heroin. Route: Inhalation. Frequency: Daily. Amount used: 1-2 bags. Age of first use: 20. Date of Last Use: 10/30/16. Alcohol-vodka/ beer. Route: Oral. Frequency: Daily. Amount used: 3 pts./1-6 pk. Age of first use: 15. Date of Last Use: 11/01/16. Marijuana. Route: Smoking. Frequency: 3-6 times per week. Amount used: $10. Age of first use: 16. Date of Last Use: 10/30/16 Medical History: Unchanged medical profile : bilateral carpal tunnel syndrome, COPD,vitamin D deficiency,GERD,liver cirrhosis,hepatitis C (treated),bronchial asthma and a past history of treatment for gonorrhea + syphilis.Noted report of remote history of renal failure (managed with dialysis) 10 years ago + orthosurgery (discectomy) twenty years ago according to records. Psychiatric History: No reported history of psychiatric hospitalizations.Mr Loredo endorses the diagnosis of MDD.Medicated with seroquel 100 mg/hs + remeron 30 mg/hs.OPD care is rendered at the [facility] in [facility].Still on methadone maintenance (130 mg/day) at the [facility]-MMTP program.No reported history of suicide attempts. Physical/Sexual Abuse/Trauma History: No reported history of abuse.Current stressor : sudden of two weeks ago.Patient is distraught over this loss.Currently in grief. Additional Comment: Urine Drug Screen Results: THC-Marijuana, MICHAELA-Cocaine, OPI- Opiates, PCP-Phencyclidine, BZO-Benzodiazepines, MTD-Methadone.Noted. Mental Status Exam - Mental Status Exam Alert and Oriented to: Time, Place, Person Cognitive Function: Good Patient Appearance: Well Groomed Mood: Sad, Withdrawn, Anxious Affect: Constricted Patient Behavior: Crying (tearful during interview), Fatigued, Cooperative Speech Pattern: Clear, Appropriate (logical) Voice Loudness: Normal Thought Process: Intact, Goal Oriented Thought Disorder: Not Present Hallucinations: Denies Suicidal Ideation: Denies Insight/Judgement: Poor Sleep: Poorly, Difficulty falling asleep Appetite: Poor, Weight loss (self-report) Muscle strength/Tone: Normal Gait/Station: Normal Psychiatric Findings - Problem List ([place] 1, 2,3) (1) Bereavement Current Visit: Yes Status: Acute (2) Alcohol dependence with uncomplicated withdrawal Current Visit: Yes Status: Acute (3) Cocaine dependence Current Visit: Yes Status: Acute Qualifiers: Substance use status: uncomplicated Qualified Code(s): F14.20 - Cocaine dependence, uncomplicated (4) Cannabis dependence Current Visit: Yes Status: Chronic Comment: in outpatient program but states he does not want to quit - has been smoking marijuana since age 16 (5) Opioid dependence on agonist therapy Current Visit: Yes Status: Acute (6) Phencyclidine dependence Current Visit: Yes Status: Acute (7) Nicotine dependence Current Visit: Yes Status: Acute Qualifiers: Nicotine product type: cigarettes Substance use status: in withdrawal Qualified Code(s): F17.213 - Nicotine dependence, cigarettes, with withdrawal Comment: counseled cessation, Rx patch (8) Substance induced mood disorder Current Visit: Yes Status: Acute (9) Asthma Current Visit: Yes Status: Acute Qualifiers: Asthma severity: mild persistent Asthma complication type: uncomplicated Qualified Code(s): J45.30 - Mild persistent asthma, uncomplicated Comment: urge to avoid smoking, he will f/u with pcp, cont mdi's. (10) COPD (chronic obstructive pulmonary disease) Current Visit: Yes Status: Chronic Qualifiers: COPD type: emphysema Emphysema type: unilateral Qualified Code(s ): J43.0 - Unilateral pulmonary emphysema [MacLeod's syndrome] Comment: counseled stop smoking, counseled to adhere to inhalers, needs pulmonary eval/f/u (11) GERD (gastroesophageal reflux disease) Current Visit: Yes Status: Chronic Qualifiers: Esophagitis presence: esophagitis presence not specified Qualified Code(s): K21.9 - Gastro-esophageal reflux disease without esophagitis (12) Hepatitis C Current Visit: Yes Status: Resolved Qualifiers: Viral hepatitis chronicity: chronic Hepatic coma status: without hepatic coma Qualified Code(s): B18.2 - Chronic viral hepatitis C Comment: Continue to Monitor (13) Lactose intolerance in adult Current Visit: Yes Status: Chronic (14) Insomnia Current Visit: Yes Status: Chronic Qualifiers: Insomnia type: unspecified Qualified Code(s): G47.00 - Insomnia, unspecified Comment: sleep hygiene reviewed - Initial Treatment Plan Initial Treatment Plan: Empathy and support are extended to patient.Psychoeducation.Detoxification in progress.Medications : seroquel 100 mg po hs + remeron 30 mg po hs.Side effects/benefits of each drug discussed with patient.Sleep hygiene principles are revisited in this session.Patient agrees to follow this careplan.Observation.OPD care will resume at the [facility] after completion of detoxification treatment.
--- NOTE | 2016-11-02 13:14 | PN ---
S CIWA - CIWA Score Nausea/Vomitin-No Nausea/No Vomiting Muscle Tremors: 4-Moderate,w/Arms Extend Anxiety: 3 Agitation: 3 Paroxysmal Sweats: 3 Orientation: 0-Oriented Tacttile Disturbances: 0-None Auditory Disturbances: 0-None Visual Disturbances: 0-None Headache: 2-Mild CIWA-Ar Total Score: 15 BHS Progress Note (SOAP) Subjective: Head ache,sweating,interrupted sleep,restless,tremors,anxiety Objective: 11/02/16 13:14 Vital Signs - 8 hr 11/02/16 11/02/16 06:30 09:27 Temperature 97.5 F L 97.3 F L Pulse Rate 75 87 Respiratory 18 18 Rate Blood Pressure 143/82 129/67 Laboratory Tests 11/01/16 11/02/16 11/02/16 23:10 07:00 07:00 WBC 8.9 RBC 4.27 Hgb 13.3 Hct 40.8 MCV 95.6 MCH 31.2 MCHC 32.6 RDW 15.6 D Plt Count 294 D MPV 8.3 Sodium Potassium Chloride Carbon Dioxide Anion Gap BUN Creatinine Creat Clearance w eGFR Random Glucose Calcium Total Bilirubin AST ALT Alkaline Phosphatase Total Protein Albumin Urine Color Dkyellow Urine Appearance Slcloudy Urine pH 5.0 Ur Specific [place] 1.020 Urine Protein Negative Urine Glucose (UA) Negative Urine Ketones Trace H Urine Blood Negative Urine Nitrite Negative Urine Bilirubin Negative Urine Urobilinogen Negative RPR Titer HIV 1&2 Antibody Screen Negative HIV P24 Antigen Negative 11/02/16 11/02/16 07:00 07:00 WBC RBC Hgb Hct MCV MCH MCHC RDW Plt Count MPV Sodium 138 Potassium 3.9 Chloride 101 Carbon Dioxide 28 Anion Gap 9 BUN 6 L D Creatinine 0.8 Creat Clearance w eGFR > 60 Random Glucose 87 Calcium 8.7 Total Bilirubin 0.6 AST 38 H ALT 32 Alkaline Phosphatase 87 Total Protein 6.2 L Albumin 3.0 L Urine Color Urine Appearance Urine pH Ur Specific [place] Urine Protein Urine Glucose (UA) Urine Ketones Urine Blood Urine Nitrite Urine Bilirubin Urine Urobilinogen RPR Titer Nonreactive HIV 1&2 Antibody Screen HIV P24 Antigen labs noted Assessment: 11/02/16 13:15 Withdrawal sx. Plan: Continue detox
[2016-11-02] MEDS: LIDOCAINE PATCH REMOVAL MC SCH (22:00)
[2016-11-02] MEDS: THIAMINE HCL 100 MG TABLET (FP) PO SCH (22:07)
[2016-11-02] MEDS: QUEtiapine FUMARATE 100 MG TABLET (FP) PO SCH (22:08)
[2016-11-02] MEDS: MIRTAZAPINE 30 MG TABLET (FP) PO SCH (22:08)
[2016-11-03] MEDS: METHADONE HCL 40 MG DISPERSABLE TABLET PO SCH (05:54)
[2016-11-03] MEDS: guaiFENesin/D-METHORPHAN HB 10 ML UNIT-DOSE CUPS PO PRN ×2 (05:55→17:20)
[2016-11-03] MEDS: chlordiazePOXIDE HCL 25 MG CAPSULE PO SCH ×3 (05:55→17:20)
[2016-11-03] MEDS: ALBUTEROL SO4 0.083% IH SOL 2.5 MG/3 ML VIAL.NEB. NEB PRN ×2 (08:37→18:59)
[2016-11-03] MEDS: PRENATAL VITAMINS W/ FOLIC ACID TABLET (FP) PO SCH (10:52)
[2016-11-03] MEDS: NICOTINE 21 MG/24 HOURS TOPICAL PATCH TD SCH (10:52)
[2016-11-03] MEDS: RANITIDINE HCL 150 MG TABLET (FP) PO SCH ×2 (10:52→22:40)
[2016-11-03] MEDS: METHOCARBAMOL 500 MG TABLET PO PRN ×2 (10:52→22:44)
[2016-11-03] MEDS: BUDESONIDE/FORMETEROL FUMARATE 80/4.5 mcg INHALER IH SCH ×2 (10:53→22:40)
[2016-11-03] MEDS: PATIENT'S OWN MEDICATION (NON-FORMULARY) (Ipratropium/Albuterol Sulfate [Combivent Respima IH SCH ×4 (10:54→22:40)
[2016-11-03] MEDS: LIDOCAINE 5% TOPICAL PATCH TP SCH (10:54)
--- NOTE | 2016-11-03 10:59 | PN ---
S CIWA - CIWA Score Nausea/Vomitin Muscle Tremors: 3 Anxiety: 5 Agitation: 2 Paroxysmal Sweats: 3 Orientation: 0-Oriented Tacttile Disturbances: 2-Mild Itch/Numbness/Burn Auditory Disturbances: 0-None Visual Disturbances: 1-Very Mild Sensitivity Headache: 0-None Present CIWA-Ar Total Score: 18 BHS Progress Note (SOAP) Subjective: Tremors, Sweating, Body Aches, Anxious. Objective: PT. A & O X 3, OBSERVED AMBULATING ON UNIT. NO ACUTE DISTRESS. 11/03/16 10:55 Vital Signs Temperature 97.6 F 11/03/16 09:26 Pulse Rate 86 11/03/16 09:26 Respiratory Rate 18 11/03/16 09:26 Blood Pressure 117/80 11/03/16 09:26 O2 Sat by Pulse Oximetry (%) Laboratory Tests 11/01/16 11/02/16 11/02/16 23:10 07:00 07:00 WBC 8.9 RBC 4.27 Hgb 13.3 Hct 40.8 MCV 95.6 MCH 31.2 MCHC 32.6 RDW 15.6 D Plt Count 294 D MPV 8.3 Sodium Potassium Chloride Carbon Dioxide Anion Gap BUN Creatinine Creat Clearance w eGFR Random Glucose Calcium Total Bilirubin AST ALT Alkaline Phosphatase Total Protein Albumin Urine Color Dkyellow Urine Appearance Slcloudy Urine pH 5.0 Ur Specific [place] 1.020 Urine Protein Negative Urine Glucose (UA) Negative Urine Ketones Trace H Urine Blood Negative Urine Nitrite Negative Urine Bilirubin Negative Urine Urobilinogen Negative RPR Titer HIV 1&2 Antibody Screen Negative HIV P24 Antigen Negative 11/02/16 11/02/16 07:00 07:00 WBC RBC Hgb Hct MCV MCH MCHC RDW Plt Count MPV Sodium 138 Potassium 3.9 Chloride 101 Carbon Dioxide 28 Anion Gap 9 BUN 6 L D Creatinine 0.8 Creat Clearance w eGFR > 60 Random Glucose 87 Calcium 8.7 Total Bilirubin 0.6 AST 38 H ALT 32 Alkaline Phosphatase 87 Total Protein 6.2 L Albumin 3.0 L Urine Color Urine Appearance Urine pH Ur Specific [place] Urine Protein Urine Glucose (UA) Urine Ketones Urine Blood Urine Nitrite Urine Bilirubin Urine Urobilinogen RPR Titer Nonreactive HIV 1&2 Antibody Screen HIV P24 Antigen LABS NOTED. Assessment: 11/03/16 10:57 WITHDRAWAL SYMPTOMS. Plan: CONTINUE DETOX.
[2016-11-03] MEDS: THIAMINE HCL 100 MG TABLET (FP) PO SCH (22:39)
[2016-11-03] MEDS: chlordiazePOXIDE 5 MG CAPSULE PO SCH (22:39)
[2016-11-03] MEDS: MIRTAZAPINE 30 MG TABLET (FP) PO SCH (22:40)
[2016-11-03] MEDS: QUEtiapine FUMARATE 100 MG TABLET (FP) PO SCH (22:40)
[2016-11-03] MEDS: LIDOCAINE PATCH REMOVAL MC SCH (22:42)
[2016-11-04] MEDS: chlordiazePOXIDE 5 MG CAPSULE PO SCH ×3 (05:21→17:03)
[2016-11-04] MEDS: METHADONE HCL 40 MG DISPERSABLE TABLET PO SCH (07:42)
[2016-11-04] MEDS: LIDOCAINE 5% TOPICAL PATCH TP SCH (10:35)
[2016-11-04] MEDS: RANITIDINE HCL 150 MG TABLET (FP) PO SCH ×2 (10:35→22:23)
[2016-11-04] MEDS: METHOCARBAMOL 500 MG TABLET PO PRN ×2 (10:35→22:22)
[2016-11-04] MEDS: PRENATAL VITAMINS W/ FOLIC ACID TABLET (FP) PO SCH (10:35)
[2016-11-04] MEDS: PATIENT'S OWN MEDICATION (NON-FORMULARY) (Ipratropium/Albuterol Sulfate [Combivent Respima IH SCH ×4 (10:36→23:40)
[2016-11-04] MEDS: BUDESONIDE/FORMETEROL FUMARATE 80/4.5 mcg INHALER IH SCH ×2 (10:36→22:23)
[2016-11-04] MEDS: NICOTINE 21 MG/24 HOURS TOPICAL PATCH TD SCH (10:37)
[2016-11-04] MEDS: ALBUTEROL SO4 0.083% IH SOL 2.5 MG/3 ML VIAL.NEB. NEB PRN (11:02)
--- NOTE | 2016-11-04 12:02 | PN ---
S Progress Note (SOAP) Subjective: ANXIETY,TREMORS,DEPRESSED MOOD STATING "THE GIRL THAT I HAVE BEEN WITH FOR 20 YRS ". PT APPEARS VERY FATIGUED. DENIES S/H IDEATIONS. Objective: 11/04/16 12:05 Vital Signs Temperature 98.8 F 11/04/16 09:50 Pulse Rate 92 H 11/04/16 09:50 Respiratory Rate 18 11/04/16 09:50 Blood Pressure 122/78 11/04/16 09:50 O2 Sat by Pulse Oximetry (%) Laboratory Last Values WBC 8.9 K/mm3 (4.0-10.0) 11/02/16 07:00 RBC 4.27 M/mm3 (4.00-5.60) 11/02/16 07:00 Hgb 13.3 GM/dL (11.7-16.9) 11/02/16 07:00 Hct 40.8 % (35.4-49) 11/02/16 07:00 MCV 95.6 fl (80-96) 11/02/16 07:00 MCH 31.2 pg (25.7-33.7) 11/02/16 07:00 MCHC 32.6 g/dl (32.0-35.9) 11/02/16 07:00 RDW 15.6 % (11.9-15.9) D 11/02/16 07:00 Plt Count 294 K/MM3 (134-434) D 11/02/16 07:00 MPV 8.3 fl (7.5-11.1) 11/02/16 07:00 Sodium 138 mmol/L (136-145) 11/02/16 07:00 Potassium 3.9 mmol/L (3.5-5.1) 11/02/16 07:00 Chloride 101 mmol/L (98-107) 11/02/16 07:00 Carbon Dioxide 28 mmol/L (21-32) 11/02/16 07:00 Anion Gap 9 (8-16) 11/02/16 07:00 BUN 6 mg/dL (7-18) L D 11/02/16 07:00 Creatinine 0.8 mg/dL (0.7-1.3) 11/02/16 07:00 Creat Clearance w eGFR > 60 (>60) 11/02/16 07:00 Random Glucose 87 mg/dL (74-106) 11/02/16 07:00 Calcium 8.7 mg/dL (8.5-10.1) 11/02/16 07:00 Total Bilirubin 0.6 mg/dL (0.2-1.0) 11/02/16 07:00 AST 38 U/L (15-37) H 11/02/16 07:00 ALT 32 U/L (12-78) 11/02/16 07:00 Alkaline Phosphatase 87 U/L (45-117) 11/02/16 07:00 Total Protein 6.2 g/dl (6.4-8.2) L 11/02/16 07:00 Albumin 3.0 g/dl (3.4-5.0) L 11/02/16 07:00 Urine Color Dkyellow 11/01/16 23:10 Urine Appearance Slcloudy 11/01/16 23:10 Urine pH 5.0 (5.0-8.0) 11/01/16 23:10 Ur Specific [place] 1.020 (1.005-1.025) 11/01/16 23:10 Urine Protein Negative (NEGATIVE) 11/01/16 23:10 Urine Glucose (UA) Negative (NEGATIVE) 11/01/16 23:10 Urine Ketones Trace (NEGATIVE) H 11/01/16 23:10 Urine Blood Negative (NEGATIVE) 11/01/16 23:10 Urine Nitrite Negative (NEGATIVE) 11/01/16 23:10 Urine Bilirubin Negative (NEGATIVE) 11/01/16 23:10 Urine Urobilinogen Negative mg/dL (0.2-1.0) 11/01/16 23:10 RPR Titer Nonreactive (NONREACTIVE) 11/02/16 07:00 HIV 1&2 Antibody Screen Negative 11/02/16 07:00 HIV P24 Antigen Negative 11/02/16 07:00 Assessment: 11/04/16 12:05 WITHDRAWAL SX Plan: CONTINUE DETOX PT WAS ALREADY SEEN BY BLANQUITA BARBER
[2016-11-04] MEDS: chlordiazePOXIDE HCL 10 MG CAPSULE PO SCH (22:22)
[2016-11-04] MEDS: THIAMINE HCL 100 MG TABLET (FP) PO SCH (22:23)
[2016-11-04] MEDS: QUEtiapine FUMARATE 100 MG TABLET (FP) PO SCH (22:23)
[2016-11-04] MEDS: MIRTAZAPINE 30 MG TABLET (FP) PO SCH (22:23)
[2016-11-04] MEDS: LIDOCAINE PATCH REMOVAL MC SCH (22:24)
[2016-11-05] MEDS: chlordiazePOXIDE HCL 10 MG CAPSULE PO SCH (05:20)
[2016-11-05] MEDS: METHADONE HCL 40 MG DISPERSABLE TABLET PO SCH (05:20)
[2016-11-05 06:26] VITALS: BP 128/71; PULSE 90; TEMP 97.5
--- NOTE | 2016-11-05 22:23 | DS ---
[facility] Detox Discharge Summary Admission Date: 11/01/16 Discharge Date: 11/05/16 - History Present History: Alcohol Dependence, Cannabis Dependence, Cocaine Dependence, Pcp Dependence, MMTP Additional Comments: PATIENT WILL GO TO [facility] FOR REHAB. PATIENT WAS DISCHARGED FROM DETOX UNIT IN STABLE MEDICAL CONDITION. Pertinent Past History: Asthma, COPD (Emphysema), Nicotine Dependence, Hep C, History of Liver Cirrhosis , Lactose Intolerance, MMTP. - Physical Exam Results Vital Signs: Vital Signs Temperature 97.5 F L 11/05/16 06:26 Pulse Rate 90 11/05/16 06:26 Respiratory Rate 18 11/05/16 06:26 Blood Pressure 128/71 11/05/16 06:26 O2 Sat by Pulse Oximetry (%) Pertinent Admission Physical Exam Findings: WITHDRAWAL SYMPTOMS. Laboratory Tests 11/01/16 11/02/16 11/02/16 23:10 07:00 07:00 WBC 8.9 RBC 4.27 Hgb 13.3 Hct 40.8 MCV 95.6 MCH 31.2 MCHC 32.6 RDW 15.6 D Plt Count 294 D MPV 8.3 Sodium Potassium Chloride Carbon Dioxide Anion Gap BUN Creatinine Creat Clearance w eGFR Random Glucose Calcium Total Bilirubin AST ALT Alkaline Phosphatase Total Protein Albumin Urine Color Dkyellow Urine Appearance Slcloudy Urine pH 5.0 Ur Specific [place] 1.020 Urine Protein Negative Urine Glucose (UA) Negative Urine Ketones Trace H Urine Blood Negative Urine Nitrite Negative Urine Bilirubin Negative Urine Urobilinogen Negative RPR Titer HIV 1&2 Antibody Screen Negative HIV P24 Antigen Negative 11/02/16 11/02/16 07:00 07:00 WBC RBC Hgb Hct MCV MCH MCHC RDW Plt Count MPV Sodium 138 Potassium 3.9 Chloride 101 Carbon Dioxide 28 Anion Gap 9 BUN 6 L D Creatinine 0.8 Creat Clearance w eGFR > 60 Random Glucose 87 Calcium 8.7 Total Bilirubin 0.6 AST 38 H ALT 32 Alkaline Phosphatase 87 Total Protein 6.2 L Albumin 3.0 L Urine Color Urine Appearance Urine pH Ur Specific [place] Urine Protein Urine Glucose (UA) Urine Ketones Urine Blood Urine Nitrite Urine Bilirubin Urine Urobilinogen RPR Titer Nonreactive HIV 1&2 Antibody Screen HIV P24 Antigen LABS NOTED. - Treatment Hospital Course: Detox Protocol Followed, Detoxed Safely, Responded well, Discharged Condition Good, Rehab Referral Accepted Patient has Accepted a Rehab Referral to: [facility]. - Medication Discharge Medications: Ambulatory Orders Famotidine [Pepcid -] 20 mg PO DAILY 08/27/15 Nortriptyline HCl [Pamelor -] 25 mg PO HS 10/29/15 Nadolol 1 tab PO DAILY #30 tablet 02/04/16 Cholecalciferol (Vitamin D3) [D3-50] 50,000 unit PO WEEKLY #8 capsule 08/19/16 Mirtazapine [Remeron -] 30 mg PO HS #30 tablet 09/19/16 Quetiapine Fumarate [Seroquel] 100 mg PO HS #30 tablet 09/19/16 Mirtazapine [Remeron -] 30 mg PO HS #30 tablet 11/02/16 Quetiapine Fumarate [Seroquel] 100 mg PO HS #30 tablet 11/02/16 Albuterol Sulfate Inhaler - [Ventolin HFA Inhaler -] 2 inh PO PRN PRN #1 cartridge 11/05/16 Ipratropium/Albuterol Sulfate [Combivent Respimat Inhal [place]] 1 inh IH QID #1 inhaler 11/05/16 - Diagnosis (1) Alcohol dependence with uncomplicated withdrawal Status: Acute (2) Bereavement Status: Acute (3) Cannabis dependence, uncomplicated Status: Acute (4) Cocaine dependence Status: Acute Qualifiers: Substance use status: uncomplicated Qualified Code(s): F14.20 - Cocaine dependence, uncomplicated (5) Drug-induced mood disorder Status: Acute (6) Nicotine dependence Status: Chronic Qualifiers: Nicotine product type: cigarettes Substance use status: in withdrawal Qualified Code(s): F17.213 - Nicotine dependence, cigarettes, with withdrawal (7) Opioid dependence on agonist therapy Status: Chronic (8) Phencyclidine dependence Status: Acute (9) Substance induced mood disorder Status: Acute (10) Asthma Status: Chronic Qualifiers: Asthma severity: mild intermittent Asthma complication type: uncomplicated Qualified Code(s): J45.20 - Mild intermittent asthma, uncomplicated (11) COPD (chronic obstructive pulmonary disease) Status: Chronic Qualifiers: COPD type: emphysema Emphysema type: unilateral Qualified Code(s ): J43.0 - 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
== END 2016-11-05 11:21 | disposition home or self-care (01) | DRG 773 ==
LOC: YASAS 10:45 → Y3N 17:34
PROVIDERS: ADMIT Internal Medicine; ATTEND Internal Medicine
PROC: HZ2ZZZZ Detoxification Services for Substance Abuse Treatment (ICD-10-PCS; principal; 2016-11-01)
DX: F11.20 Opioid dependence, uncomplicated (principal); F10.230 Alcohol dependence with withdrawal, uncomplicated; F14.20 Cocaine dependence, uncomplicated; F12.20 Cannabis dependence, uncomplicated; F16.20 Hallucinogen dependence, uncomplicated; F17.210 Nicotine dependence, cigarettes, uncomplicated; F19.24 Other psychoactive substance dependence with psychoactive substance-induced mood disorder; G47.00 Insomnia, unspecified; Z63.4 Disappearance and death of family member; J45.20 Mild intermittent asthma, uncomplicated; J43.0 Unilateral pulmonary emphysema [MacLeod's syndrome]; K21.9 Gastro-esophageal reflux disease without esophagitis; E73.8 Other lactose intolerance
CPT/HCPCS: 36415; 80053; 81003; 85027; 86593; 87389; 93005; 93010; 94640

== ENCOUNTER 2017-11-01 12:06 | Inpatient (IN) | payer OTHER ==
[2017-11-01 12:34] VITALS: BMI 24.4
--- NOTE | 2017-11-01 14:16 | HP ---
COWS - Scale Resting Pulse: 2= [place] 101-120 Sweatin= Chills/Flushing Restless Observation: 3= Extraneous Movement Pupil Size: 1= Pupils >than Normal Bone or Joint Aches: 2= Severe Diffuse Aches Runny Nose/ Eye Tearin= Runny Nose/Eyes GI Upset > 30mins: 3= Vomiting/Diarrhea Tremor Observation: 2= Slight Tremor Visible Yawning Observation: 1= 1-2x During Session Anxiety or Irritability: 2=Irritable/Anxious Goose Flesh Skin: 0=Smooth Skin COWS Score: 19 CIWA Score - CIWA Score Nausea/Vomitin Muscle Tremors: 3 Anxiety: 3 Agitation: 2 Paroxysmal Sweats: 1-Minimal Palms Moist Orientation: 0-Oriented Tacttile Disturbances: 1-Very Mild Itch/Numbness Auditory Disturbances: 1-Very Mild Visual Disturbances: 1-Very Mild Sensitivity Headache: 2-Mild CIWA-Ar Total Score: 17 Admission ROS S - HPI Chief Complaint: i hattie help to stop using heroin,alcohol,cocaine,marijuana Allergies/Adverse Reactions: Allergies Allergy/AdvReac Type Severity Reaction Status Date / Time No Known Drug Allergies Allergy Verified 11/01/17 12:50 lactose AdvReac Vomiting Verified 11/01/17 12:50 NKDA Allergy Uncoded 11/01/17 12:50 mayonnaise AdvReac Vomiting Uncoded 11/01/17 12:50 History of Present Illness: this 57 years old male with heroin,alcohol,cocaine,marijuana withdrawal symptom, seeking detox,last detox 03/26 syncope alcohol related last night asthma,sciatica,bleeding ulcer,hepatitis c treated manic depression weight loss multiple admissions but relapsed longest period of sobriety 1 year Exam Limitations: No Limitations - Ebola screening Have you traveled outside of the country in the last 21 days: No Have you had contact with anyone from an Ebola affected area: No Have you been sick,other than usual withdrawal symptoms: No Do you have a fever: No - Review of Systems Constitutional: Chills, Loss of Appetite, Malaise, Night Sweats, Changes in sleep, Weakness, Unintentional Wgt. Loss EENT: reports: Tearing, Nose Congestion Respiratory: reports: No Symptoms reported Cardiac: reports: Palpitations GI: reports: Diarrhea, Nausea, Vomiting, Abdominal cramping : reports: No Symptoms Reported Musculoskeletal: reports: Back Pain, Joint Pain, Muscle Pain, Joint Stiffness Integumentary: reports: Dryness Neuro: reports: Headache, Tremors Endocrine: reports: No Symptoms Reported Hematology: reports: No Symptoms Reported Psychiatric: reports: No Sypmtoms Reported, Judgement Intact, Mood/Affect Appropiate, Orientated x3 Other Systems: Reviewed and Negative Patient History - Patient Medical History Hx Anemia: No Hx Asthma: Yes (on albuerol inhaler) Hx Chronic Obstructive Pulmonary Disease (COPD): No Hx Cancer: No Hx Cardiac Disorders: No Hx Congestive Heart Failure: No Hx Hypertension: Yes Hx Hypercholesterolemia: No Hx Pacemaker: No HX Cerebrovascular Accident: No Hx Seizures: No Hx Dementia: No Hx Diabetes: No Hx Gastrointestinal Disorders: Yes (bleeding ulcer) Hx Liver Disease: Yes (cirrhosis) Hx Genitourinary Disorders: No Hx Sexually Transmitted Disorders: No Hx Renal Disease (ESRD): No Hx Thyroid Disease: No Hx Human Immunodeficiency Virus (HIV): No (10/24 negative) Hx Hepatitis C: Yes (treated) Hx Depression: Yes Hx Suicide Attempt: Yes (attempted to jump [place]) Hx Bipolar Disorder: No Hx Schizophrenia: Yes Other Medical History: no suicidal,no homicidal - Patient Surgical History Past Surgical History: Yes Hx Neurologic Surgery: No Hx Cataract Extraction: No Hx Cardiac Surgery: No Hx Lung Surgery: No Hx Breast Surgery: No Hx Breast Biopsy: No Hx Abdominal Surgery: No Hx Appendectomy: No Hx Cholecystectomy: No Hx Genitourinary Surgery: No Hx Section: No Hx Orthopedic Surgery: Yes (lower back (fall) discectomy 20 years ago) Anesthesia Reaction: No - PPD History Previous Implant?: Yes Documented Results: Negative w/o proof Implanted On Prior [facility] Admission?: Yes Date: 09/20/16 Results: 0 mm PPD to be Administered?: Yes - Smoking Cessation Smoking history: Current every day smoker Have you smoked in the past 12 months: Yes Aproximately how many cigarettes per day: 10 Cigars Per Day: 0 Hx Chewing Tobacco Use: No Initiated information on smoking cessation: Yes 'Breaking Loose' booklet given: 11/01/17 - Substance & Tx. History Hx Alcohol Use: Yes Hx Substance Use: Yes Substance Use Type: Alcohol, Cocaine, Heroin, Marijuana Hx Substance Use Treatment: Yes (03/26) - Substances Abused Alcohol Route: Oral Frequency: Daily Amount used: 1 LITER OF VODKA AND 6-24 OZ CANS OF BEER Age of first use: 7 Date of Last Use: 11/01/17 Marijuana/Hashish Route: Smoking Frequency: Daily Amount used: $25-$35 WORTH DAILY Age of first use: 14 Date of Last Use: 10/31/17 Cocaine Route: Inhalation Frequency: Daily Amount used: 1-2 GRAMS Age of first use: 18 Date of Last Use: 09/01/17 Heroin Route: Inhalation Frequency: Daily Amount used: 4 BAGS Age of first use: 15 Date of Last Use: 09/01/17 Family Disease History - Family Disease History Family Disease History: Diabetes: Grandparent, [place]: Mother (mom a&w, survived breast ca), Other: Father (dec'd, alcohol ), Brother (none), Sister (2 a&w), Son (none), Daughter (1 a&w with stable asthma) Admission Physical Exam [facility] - Vital Signs Vital Signs: Vital Signs - 24 hr 11/01/17 12:28 Temperature 99.2 F Pulse Rate 111 H Respiratory 20 Rate Blood Pressure 139/82 - Physical General Appearance: Yes: Moderate Distress, Tremorous, Irritable, Sweating, Anxious HEENTM: Yes: Normal ENT Inspection, ROMARIO, Pharynx Normal Respiratory: Yes: Lungs Clear, Normal Breath Sounds, No Respiratory Distress Neck: Yes: Within Normal Limits, Supple, Trachea in good position Breast: Yes: Within Normal Limits Cardiology: Yes: Tachycardia Abdominal: Yes: Within Normal Limits, Normal Bowel Sounds, Soft Genitourinary: Yes: Within Normal Limits Back: Yes: Muscle Spasm Musculoskeletal: Yes: Gait Steady, Back pain, Joint Stiffness, Muscle Pain Extremities: Yes: Within Normal Limits, Normal Range of Motion, Tremors Neurological: Yes: Within Normal Limits, 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 NML intact, Alert, Motor Strength 5/5 Integumentary: Yes: Dry Lymphatic: Yes: Within Normal Limits - Diagnostic (1) Opioid dependence with withdrawal Current Visit: Yes Status: Acute (2) Alcohol dependence with uncomplicated withdrawal Current Visit: No Status: Acute (3) Syncope Current Visit: No Status: Chronic (4) Cannabis dependence, uncomplicated Current Visit: No Status: Acute (5) Cocaine dependence Current Visit: No Status: Acute Qualifiers: Substance use status: uncomplicated Qualified Code(s): F14.20 - Cocaine dependence, uncomplicated (6) Asthma Current Visit: No Status: Chronic Qualifiers: Asthma severity: mild intermittent Asthma complication type: uncomplicated Comment: urge to avoid smoking, he will f/u with pcp, cont mdi's. (7) Back pain Current Visit: No Status: Chronic Qualifiers: Back pain laterality: unspecified Comment: Consider work -up, X-rays, MRI, Referral to orthopedist (8) GERD (gastroesophageal reflux disease) Current Visit: No Status: Chronic Qualifiers: Esophagitis presence: esophagitis presence not specified Qualified Code(s) : K21.9 - Gastro-esophageal reflux disease without esophagitis (9) History of back surgery Current Visit: No Status: Chronic Comment: Pt self-reports that x-rays are negative for fractures, further evaluation will be considered in 1 week (10) History of syphilis Current Visit: No Status: Chronic (11) Nicotine dependence Current Visit: No Status: Chronic Qualifiers: Nicotine product type: cigarettes Substance use status: in withdrawal Qualified Code(s): F17.213 - Nicotine dependence, cigarettes, with withdrawal Comment: counseled cessation, Rx patch (12) History of herpes genitalis Current Visit: Yes Status: Acute Cleared for Admission S - Detox or Rehab S Level of Care: Medically Managed Detox Regimen/Protocol: Methadone/Librium S Breath Alcohol Content Breath Alcohol Content: 0.155 Urine Drug Screen - Results Drug Screen Negative: No Urine Drug Screen Results: BZO-Benzodiazepines
--- NOTE | 2017-11-01 14:26 | HP ---
COWS - Scale Resting Pulse: 2= [place] 101-120 Sweatin= Chills/Flushing Restless Observation: 3= Extraneous Movement Pupil Size: 1= Pupils >than Normal Bone or Joint Aches: 2= Severe Diffuse Aches Runny Nose/ Eye Tearin= Runny Nose/Eyes GI Upset > 30mins: 3= Vomiting/Diarrhea Tremor Observation: 2= Slight Tremor Visible Yawning Observation: 1= 1-2x During Session Anxiety or Irritability: 2=Irritable/Anxious Goose Flesh Skin: 0=Smooth Skin COWS Score: 19 CIWA Score - CIWA Score Nausea/Vomitin Muscle Tremors: 3 Anxiety: 3 Agitation: 2 Paroxysmal Sweats: 1-Minimal Palms Moist Orientation: 0-Oriented Tacttile Disturbances: 1-Very Mild Itch/Numbness Auditory Disturbances: 1-Very Mild Visual Disturbances: 1-Very Mild Sensitivity Headache: 2-Mild CIWA-Ar Total Score: 17 Admission ROS [facility] - HPI Chief Complaint: i hattie help to stop using heroin,alcohol,cocaine,marijuana dependence Allergies/Adverse Reactions: Allergies Allergy/AdvReac Type Severity Reaction Status Date / Time No Known Drug Allergies Allergy Verified 11/01/17 12:50 lactose AdvReac Vomiting Verified 11/01/17 12:50 NKDA Allergy Uncoded 11/01/17 12:50 mayonnaise AdvReac Vomiting Uncoded 11/01/17 12:50 History of Present Illness: this 57 years old male with heroin,alcohol,cocaine,marijuana dependence, withdrawal symptom,seeking detox,last detox - Ebola screening Have you traveled outside of the country in the last 21 days: No Have you had contact with anyone from an Ebola affected area: No Have you been sick,other than usual withdrawal symptoms: No Do you have a fever: No Patient History - Patient Medical History Hx Anemia: No Hx Asthma: Yes Hx Chronic Obstructive Pulmonary Disease (COPD): No Hx Cancer: No Hx Cardiac Disorders: Yes Hx Congestive Heart Failure: No Hx Hypertension: No Hx Hypercholesterolemia: No Hx Pacemaker: No HX Cerebrovascular Accident: No Hx Seizures: No Hx Dementia: No Hx Diabetes: No Hx Gastrointestinal Disorders: No Hx Liver Disease: Yes (cirrhosis) Hx Genitourinary Disorders: No Hx Sexually Transmitted Disorders: Yes Hx Renal Disease (ESRD): No Hx Thyroid Disease: No Hx Human Immunodeficiency Virus (HIV): No (last 07/22 negative ) Hx Hepatitis C: Yes (treated) Hx Depression: Yes Hx Suicide Attempt: Yes Hx Bipolar Disorder: No Hx Schizophrenia: Yes - Patient Surgical History Past Surgical History: Yes Hx Neurologic Surgery: No Hx Cataract Extraction: No Hx Cardiac Surgery: No Hx Lung Surgery: No Hx Breast Surgery: No Hx Breast Biopsy: No Hx Abdominal Surgery: No Hx Appendectomy: No Hx Cholecystectomy: No Hx Genitourinary Surgery: No Hx Section: No Hx Orthopedic Surgery: Yes (lower back (fall) discectomy 20 years ago) Anesthesia Reaction: No - PPD History Previous Implant?: Yes Date: 09/20/16 Results: 0 mm - Smoking Cessation Smoking history: Current every day smoker Have you smoked in the past 12 months: Yes Aproximately how many cigarettes per day: 10 Cigars Per Day: 0 Hx Chewing Tobacco Use: No - Substances Abused Alcohol Route: Oral Frequency: Daily Amount used: 1 LITER OF VODKA AND 6-24 OZ CANS OF BEER Age of first use: 7 Date of Last Use: 11/01/17 Marijuana/Hashish Route: Smoking Frequency: Daily Amount used: $25-$35 WORTH DAILY Age of first use: 14 Date of Last Use: 10/31/17 Cocaine Route: Inhalation Frequency: Daily Amount used: 1-2 GRAMS Age of first use: 18 Date of Last Use: 09/01/17 Heroin Route: Inhalation Frequency: Daily Amount used: 4 BAGS Age of first use: 15 Date of Last Use: 09/01/17 Family Disease History - Family Disease History Family Disease History: Diabetes: Grandparent, [place]: Mother (mom a&w, survived breast ca), Other: Father (dec'd, alcohol ), Brother (none), Sister (2 a&w), Son (none), Daughter (1 a&w with stable asthma) Admission Physical Exam [facility] - Vital Signs Vital Signs: Vital Signs - 24 hr 11/01/17 12:28 Temperature 99.2 F Pulse Rate 111 H Respiratory 20 Rate Blood Pressure 139/82 [facility] Breath Alcohol Content Breath Alcohol Content: 0.155 Urine Drug Screen - Results Drug Screen Negative: No Urine Drug Screen Results: BZO-Benzodiazepines
[2017-11-01] MEDS ORDERED: chlordiazePOXIDE HCL 25 MG CAPSULE PO PRN (14:53)
[2017-11-01] MEDS ORDERED: LOPERAMIDE HCL 2 MG CAPSULE PO PRN (14:53)
[2017-11-01] MEDS ORDERED: MAGNESIUM HYDROX 2400MG/30ML ORAL SUSPENSION 30 ML CUP PO PRN (14:53)
[2017-11-01] MEDS ORDERED: ACETAMINOPHEN 325 MG TABLET (FP) PO PRN (14:53)
[2017-11-01] MEDS ORDERED: MAG HYDROX/AL HYDROX/SIMETH 30 ML UNIT-DOSE CUP PO PRN (14:53)
[2017-11-01] MEDS ORDERED: METHADONE HCL 10 MG TABLET (FOR DETOX USE ONLY) PO ONE ×2 (14:53→23:00)
[2017-11-01] MEDS ORDERED: hydrOXYzine PAMOATE 50 MG CAPSULE (FP) PO PRN (14:53)
[2017-11-01] MEDS ORDERED: MAGNESIUM CITRATE 300 ML BOTTLE PO PRN (14:53)
[2017-11-01] MEDS ORDERED: guaiFENesin/D-METHORPHAN HB 10 ML UNIT-DOSE CUPS PO PRN (14:53)
[2017-11-01] MEDS ORDERED: P-EPHED 60MG/TRIPROLIDI 2.5MG TABLET PO PRN (14:53)
[2017-11-01] MEDS ORDERED: IBUPROFEN 400 MG TABLET (FP) PO PRN (14:53)
[2017-11-01] MEDS ORDERED: MENTHOL/PHENOL 1 EACH UD MM PRN (14:53)
[2017-11-01] MEDS ORDERED: ALBUTEROL SO4 8 GM HFA INHALER IH PRN (14:57)
[2017-11-01] MEDS: chlordiazePOXIDE HCL 25 MG CAPSULE PO SCH ×2 (17:53→22:11)
[2017-11-01] MEDS: PANTOPRAZOLE 40 MG TABLET (FP) PO SCH (17:53)
[2017-11-01 18:16] LABS: URINE APPEARANCE CLEAR; URINE BILIRUBIN NEGATIVE (<2.0 mg/dL); URINE COLOR LTYELLOW; URINE GLUCOSE (UA) NEGATIVE (NEGATIVE); URINE KETONE NEGATIVE (NEGATIVE); URINE LEUK ESTERASE TRACE (NEGATIVE); URINE NITRITE NEGATIVE (NEGATIVE); URINE PROTEIN NEGATIVE (NEGATIVE); URINE UROBILINOGEN NEGATIVE mg/dL (0.2-1.0)
[2017-11-01 18:31] LABS: EPI CELLS RARE /HPF (FEW); URINE HYALINE CAST 1 /lpf; URINE MUCUS RARE
--- NOTE | 2017-11-01 21:48 | PN ---
[facility] Progress Note Note: Vital Signs Temperature 100.4 F H 11/01/17 17:49 Pulse Rate 110 H 11/01/17 17:49 Respiratory Rate 18 11/01/17 17:49 Blood Pressure 154/86 11/01/17 17:49 O2 Sat by Pulse Oximetry (%) utox positive for benzo. methadone d/c. continue to monitor
[2017-11-01] MEDS ORDERED: MELATONIN 5 MG TABLETS PO PRN (22:00)
[2017-11-01] MEDS: CYCLOBENZAPRINE HCL 10 MG TABLET (FP) PO SCH (22:11)
[2017-11-01] MEDS: THIAMINE HCL 100 MG TABLET (FP) PO SCH (22:11)
[2017-11-02] MEDS: chlordiazePOXIDE HCL 25 MG CAPSULE PO SCH ×4 (06:16→22:46)
--- NOTE | 2017-11-02 08:59 | CONSULT ---
[facility] Psychiatric Consult - Data Date of interview: 11/02/17 Admission source: [facility] Identifying data: Patient is a 57 year old , , , father of seven, unemployed, residing with children, and is supported by [facility] benefits. This is one of multiple admissions for patient. Pt. admitted to 3N alcohol, cocaine, and opiate dependence. Substance Abuse History: Smoking Cessation. Smoking history: Current every day smoker. Have you smoked in the past 12 months: Yes. Aproximately how many cigarettes per day: 10. Cigars Per Day: 0. Hx Chewing Tobacco Use: No. Initiated information on smoking cessation: Yes. 'Breaking Loose' booklet given : 11/01/17. - Substance & Tx. History. Hx Alcohol Use: Yes. Hx Substance Use : Yes. Substance Use Type: Alcohol, Cocaine, Heroin, Marijuana. Hx Substance Use Treatment: Yes (03/26). - Substances Abused. Alcohol. Route: Oral. Frequency: Daily. Amount used: 1 LITER OF VODKA AND 6-24 OZ CANS OF BEER. Age of first use: 7. Date of Last Use: 11/01/17. Marijuana/Hashish. Route: Smoking. Frequency: Daily. Amount used: $25-$35 WORTH DAILY. Age of first use : 14. Date of Last Use: 10/31/17. Cocaine. Route: Inhalation. Frequency: Daily. Amount used: 1-2 GRAMS. Age of first use: 18. Date of Last Use: . Heroin. Route: Inhalation. Frequency: Daily. Amount used: 4 BAGS. Age of first use: 15. Date of Last Use: 09/01/17 Medical History: Asthma, cirrhosis Psychiatric History: Patient reports multiple psychiatric hospitalizations, most recently in March of 2017 at [facility] after attempting to jump in front of a train. He was admitted for approximately 8 weeks and was prescribed seroquel 200mg BID + Mirtzapine 30mg qhs. Outpatient psychiatric care was provided at the [facility] approximately one year ago. Dr. Farah was prescribing patient seroquel 100mg + Mirtzapine 30mg for depression and mood stabilization. He was incarcered from august 2017 - October 2017 and was prescribed mirtzapine and another agent. Pt. currently denies thoughts or urges to hurt himself. Physical/Sexual Abuse/Trauma History: denies. Mental Status Exam - Mental Status Exam Alert and Oriented to: Time, Place, Person Cognitive Function: Good Patient Appearance: Well Groomed Mood: Euthymic Affect: Mood Congruent Patient Behavior: Crying (Tearful when speaking about the passing of his in 2017.) Speech Pattern: Appropriate Voice Loudness: Normal Thought Process: Intact, Goal Oriented Thought Disorder: Not Present Hallucinations: Denies Suicidal Ideation: Denies Homicidal Ideation: Denies Insight/Judgement: Poor Sleep: Poorly Appetite: Fair Muscle strength/Tone: Normal Gait/Station: Normal Psychiatric Findings - Problem List ([place] 1, 2,3) (1) Bereavement Current Visit: Yes Status: Acute (2) Alcohol dependence with uncomplicated withdrawal Current Visit: Yes Status: Acute (3) Substance induced mood disorder Current Visit: Yes Status: Acute (4) Benzodiazepine dependence Current Visit: Yes Status: Acute (5) Insomnia Current Visit: Yes Status: Acute Qualifiers: Insomnia type: unspecified Qualified Code(s): G47.00 - Insomnia, unspecified Comment: sleep hygiene reviewed - Initial Treatment Plan Initial Treatment Plan: Psychoeducation provided. Detoxification in progress. Will order seroquel 50mg + Mirtzapine 30mg. Benefits and side effects discussed. Verbal consent given.
[2017-11-02 10:00] LABS: HEMATOCRIT 39.8 % (35.4-49); MCH 30.4 pg (25.7-33.7); MCHC 32.8 g/dl (32.0-35.9); MEAN CELL VOLUME 92.9 fl (80-96); MEAN PLT VOLUME 7.8 fl (7.5-11.1); PLATELET COUNT 295 K/MM3 (134-434); RBC 4.28 M/mm3 (4.00-5.60); RDW 13.1 % (11.9-15.9); WHITE BLOOD COUNT 8.5 K/mm3 (4.0-10.0)
[2017-11-02] MEDS ORDERED: METHADONE HCL 10 MG TABLET (FOR DETOX USE ONLY) PO SCH (10:00)
[2017-11-02] MEDS ORDERED: ERGOCALCIFEROL (VITAMIN D2) 50,000 UNIT CAPSULE (FP) PO SCH (10:00)
[2017-11-02] MEDS ORDERED: NICOTINE POLACRILEX 2 MG GUM BUC PRN (10:09)
[2017-11-02 10:21] LABS: ALBUMIN 3.8 g/dl (3.4-5.0); ALK PHOS 84 U/L (45-117); ANION GAP 13 MMOL/L (8-16); BILIRUBIN,TOTAL 0.6 mg/dL (0.2-1); BLOOD UREA NITROGEN 14 mg/dL (7-18); CALCIUM 8.9 mg/dL (8.5-10.1); CHLORIDE 108 mmol/L (98-107); CO2 25 mmol/L (21-32); CREATININE 0.9 mg/dL (0.55-1.3); GLUCOSE,RANDOM 93 mg/dL (74-106); POTASSIUM 4.1 mmol/L (3.5-5.1); SGOT/AST 29 U/L (15-37); SGPT/ALT 53 U/L (13-61); SODIUM 146 mmol/L (136-145); TOT PROT 7.2 g/dl (6.4-8.2)
[2017-11-02] MEDS: ACYCLOVIR 400 MG TABLET PO SCH (10:38)
[2017-11-02] MEDS: PRENATAL VITAMINS W/ FOLIC ACID TABLET (FP) PO SCH (10:38)
[2017-11-02] MEDS: NADOLOL 20 MG TABLET (FP) PO SCH (10:39)
[2017-11-02] MEDS: PANTOPRAZOLE 40 MG TABLET (FP) PO SCH (10:39)
[2017-11-02] MEDS: LIDOCAINE 5% TOPICAL PATCH TP SCH (10:39)
[2017-11-02] MEDS: NICOTINE 21 MG/24 HOURS TOPICAL PATCH TD SCH (10:39)
[2017-11-02] MEDS: TOLNAFTATE 1% CREAM 15 GM TUBE TP SCH ×2 (11:19→22:08)
[2017-11-02] MEDS ORDERED: FLU VACCINE QUAD 60 MCG/0.5 ML (MDV 18-19) IM ONE (12:00)
[2017-11-02] MEDS ORDERED: PNEUMOC 13-VAL CONJ-DIP CRM/PF 0.5 ML DISP.SYRIN IM ONE (12:00)
--- NOTE | 2017-11-02 12:16 | PN ---
[facility] CIWA - CIWA Score Nausea/Vomitin-No Nausea/No Vomiting Muscle Tremors: None Anxiety: 2 Agitation: 2 Paroxysmal Sweats: No Perspiration Orientation: 0-Oriented Tacttile Disturbances: 0-None Auditory Disturbances: 0-None Visual Disturbances: 0-None Headache: 0-None Present CIWA-Ar Total Score: 4 S COWS - Scale Resting Pulse: 1= [place] 81-100 Sweatin= No chills or Flushing Restless Observation: 1= Difficult to Sit Still Pupil Size: 0= Normal to Room Light Bone or Joint Aches: 1= Mild Discomfort Runny Nose/ Eye Tearin= None GI Upset > 30mins: 0= None Tremor Observation of Outstretched Hands: 0= None Yawning Observation: 0= None Anxiety or Irritability: 2=Irritable/Anxious Goose Flesh Skin: 0=Smooth Skin COWS Score: 5 [facility] Progress Note (SOAP) Subjective: Patient pacing in hallway, anxious. Complains of body and lower back pain and rash to feet. Objective: 11/02/17 12:13 Vital Signs Temperature 96 F L 11/02/17 09:23 Pulse Rate 90 11/02/17 09:23 Respiratory Rate 20 11/02/17 09:23 Blood Pressure 147/90 11/02/17 09:23 O2 Sat by Pulse Oximetry (%) Laboratory Tests 11/01/17 11/02/17 11/02/17 14:40 06:00 06:00 WBC 8.5 RBC 4.28 Hgb 13.0 Hct 39.8 MCV 92.9 MCH 30.4 MCHC 32.8 RDW 13.1 D Plt Count 295 MPV 7.8 Sodium 146 H Potassium 4.1 Chloride 108 H Carbon Dioxide 25 Anion Gap 13 BUN 14 Creatinine 0.9 Creat Clearance w eGFR > 60 Random Glucose 93 Calcium 8.9 Total Bilirubin 0.6 AST 29 ALT 53 Alkaline Phosphatase 84 Total Protein 7.2 Albumin 3.8 Urine Color Ltyellow Urine Appearance Clear Urine pH 5.0 Ur Specific [place] 1.014 Urine Protein Negative Urine Glucose (UA) Negative Urine Ketones Negative Urine Blood Negative Urine Nitrite Negative Urine Bilirubin Negative Urine Urobilinogen Negative Ur Leukocyte Esterase Trace Urine WBC (Auto) 2 Urine RBC (Auto) <1 Ur Epithelial Cells Rare Hyaline Casts 1 Urine Mucus Rare RPR Titer 11/02/17 06:00 WBC RBC Hgb Hct MCV MCH MCHC RDW Plt Count MPV Sodium Potassium Chloride Carbon Dioxide Anion Gap BUN Creatinine Creat Clearance w eGFR Random Glucose Calcium Total Bilirubin AST ALT Alkaline Phosphatase Total Protein Albumin Urine Color Urine Appearance Urine pH Ur Specific [place] Urine Protein Urine Glucose (UA) Urine Ketones Urine Blood Urine Nitrite Urine Bilirubin Urine Urobilinogen Ur Leukocyte Esterase Urine WBC (Auto) Urine RBC (Auto) Ur Epithelial Cells Hyaline Casts Urine Mucus RPR Titer Nonreactive skin: warm and dry alert and oriented car s1s2 resp cta bl ext no edema, full rom. +fungal rash in between toes psych: anxious and irritable at times with staff Assessment: 11/02/17 12:15 Athletes foot withdrawal syndrome low back pain Plan: continue detox encourage oral fluids as Na level 146 repeat BMP in am aveeno soap/tinactin cream for athletes foot lidoderm patch to lower back daily
[2017-11-02] MEDS ORDERED: PNEUMOCOCCAL 23 VACCINE 0.5 ML VIAL IM ONE (14:15)
[2017-11-02] MEDS: COLLOIDAL OATMEAL 1 BAR EACH TP PRN (14:47)
[2017-11-02] MEDS: QUEtiapine FUMARATE 50 MG TABLET PO SCH (22:45)
[2017-11-02] MEDS: THIAMINE HCL 100 MG TABLET (FP) PO SCH (22:45)
[2017-11-02] MEDS: CYCLOBENZAPRINE HCL 10 MG TABLET (FP) PO SCH (22:45)
[2017-11-02] MEDS: MIRTAZAPINE 30 MG TABLET (FP) PO SCH (22:46)
[2017-11-02] MEDS: LIDOCAINE PATCH REMOVAL MC SCH (23:08)
[2017-11-03] MEDS: chlordiazePOXIDE HCL 25 MG CAPSULE PO SCH ×2 (06:08→10:48)
[2017-11-03] MEDS ORDERED: METHADONE HCL 5 MG TABLET (FOR DETOX USE ONLY) PO SCH (10:00)
[2017-11-03] MEDS: PANTOPRAZOLE 40 MG TABLET (FP) PO SCH (10:48)
[2017-11-03] MEDS: ACYCLOVIR 400 MG TABLET PO SCH (10:48)
[2017-11-03] MEDS: TOLNAFTATE 1% CREAM 15 GM TUBE TP SCH ×2 (10:48→22:08)
[2017-11-03] MEDS: NADOLOL 20 MG TABLET (FP) PO SCH (10:48)
[2017-11-03] MEDS: PRENATAL VITAMINS W/ FOLIC ACID TABLET (FP) PO SCH (10:49)
[2017-11-03] MEDS: NICOTINE 21 MG/24 HOURS TOPICAL PATCH TD SCH (10:49)
[2017-11-03] MEDS: LIDOCAINE 5% TOPICAL PATCH TP SCH (11:01)
--- NOTE | 2017-11-03 12:31 | PN ---
[facility] CIWA - CIWA Score Nausea/Vomitin-No Nausea/No Vomiting Muscle Tremors: None Anxiety: 1-Mildly Anxious Agitation: 1-Slight > Activity Paroxysmal Sweats: No Perspiration Orientation: 0-Oriented Tacttile Disturbances: 0-None Auditory Disturbances: 0-None Visual Disturbances: 0-None Headache: 0-None Present CIWA-Ar Total Score: 2 S COWS - Scale Resting Pulse: 0= [place] 80 or Below Sweatin= No chills or Flushing Restless Observation: 1= Difficult to Sit Still Pupil Size: 0= Normal to Room Light Bone or Joint Aches: 0= None Runny Nose/ Eye Tearin= None GI Upset > 30mins: 0= None Tremor Observation of Outstretched Hands: 0= None Yawning Observation: 0= None Anxiety or Irritability: 0= None Goose Flesh Skin: 0=Smooth Skin COWS Score: 1 [facility] Progress Note (SOAP) Subjective: Patient mildly anxious and irritable with staff. Objective: 11/03/17 12:28 Laboratory Tests 11/01/17 11/02/17 11/02/17 14:40 06:00 06:00 WBC 8.5 RBC 4.28 Hgb 13.0 Hct 39.8 MCV 92.9 MCH 30.4 MCHC 32.8 RDW 13.1 D Plt Count 295 MPV 7.8 Sodium 146 H Potassium 4.1 Chloride 108 H Carbon Dioxide 25 Anion Gap 13 BUN 14 Creatinine 0.9 Creat Clearance w eGFR > 60 Random Glucose 93 Calcium 8.9 Total Bilirubin 0.6 AST 29 ALT 53 Alkaline Phosphatase 84 Total Protein 7.2 Albumin 3.8 Urine Color Ltyellow Urine Appearance Clear Urine pH 5.0 Ur Specific [place] 1.014 Urine Protein Negative Urine Glucose (UA) Negative Urine Ketones Negative Urine Blood Negative Urine Nitrite Negative Urine Bilirubin Negative Urine Urobilinogen Negative Ur Leukocyte Esterase Trace Urine WBC (Auto) 2 Urine RBC (Auto) <1 Ur Epithelial Cells Rare Hyaline Casts 1 Urine Mucus Rare RPR Titer 11/02/17 06:00 WBC RBC Hgb Hct MCV MCH MCHC RDW Plt Count MPV Sodium Potassium Chloride Carbon Dioxide Anion Gap BUN Creatinine Creat Clearance w eGFR Random Glucose Calcium Total Bilirubin AST ALT Alkaline Phosphatase Total Protein Albumin Urine Color Urine Appearance Urine pH Ur Specific [place] Urine Protein Urine Glucose (UA) Urine Ketones Urine Blood Urine Nitrite Urine Bilirubin Urine Urobilinogen Ur Leukocyte Esterase Urine WBC (Auto) Urine RBC (Auto) Ur Epithelial Cells Hyaline Casts Urine Mucus RPR Titer Nonreactive Vital Signs Temperature 96.9 F L 11/03/17 09:20 Pulse Rate 88 11/03/17 09:20 Respiratory Rate 17 11/03/17 09:20 Blood Pressure 117/70 11/03/17 09:20 O2 Sat by Pulse Oximetry (%) alert and oriented x 3 skin warm and dry car s1s2 resp cta bl psych mild anxiety and irritability. amb ad mary lou on unit Assessment: 11/03/17 12:30 withdrawal syndrome Plan: continue detox as ordered encourage oral fluids continue to monitor
[2017-11-03] MEDS: chlordiazePOXIDE 5 MG CAPSULE PO SCH ×2 (17:21→22:07)
[2017-11-03] MEDS: COLLOIDAL OATMEAL 1 BAR EACH TP PRN (17:51)
[2017-11-03] MEDS: QUEtiapine FUMARATE 50 MG TABLET PO SCH (22:07)
[2017-11-03] MEDS: MIRTAZAPINE 30 MG TABLET (FP) PO SCH (22:07)
[2017-11-03] MEDS: THIAMINE HCL 100 MG TABLET (FP) PO SCH (22:07)
[2017-11-03] MEDS: CYCLOBENZAPRINE HCL 10 MG TABLET (FP) PO SCH (22:07)
[2017-11-03] MEDS: LIDOCAINE PATCH REMOVAL MC SCH (22:08)
[2017-11-04] MEDS: chlordiazePOXIDE 5 MG CAPSULE PO SCH ×2 (05:23→10:22)
[2017-11-04] MEDS: NADOLOL 20 MG TABLET (FP) PO SCH (10:22)
[2017-11-04] MEDS: PANTOPRAZOLE 40 MG TABLET (FP) PO SCH (10:22)
[2017-11-04] MEDS: ACYCLOVIR 400 MG TABLET PO SCH (10:22)
[2017-11-04] MEDS: PRENATAL VITAMINS W/ FOLIC ACID TABLET (FP) PO SCH (10:23)
[2017-11-04] MEDS: LIDOCAINE 5% TOPICAL PATCH TP SCH (10:23)
[2017-11-04] MEDS: NICOTINE 21 MG/24 HOURS TOPICAL PATCH TD SCH (10:23)
[2017-11-04] MEDS: TOLNAFTATE 1% CREAM 15 GM TUBE TP SCH ×2 (10:23→22:01)
--- NOTE | 2017-11-04 10:50 | PN ---
[facility] Progress Note (SOAP) Subjective: Tremors and interrupted sleep Objective: 11/04/17 10:49 Vital Signs 11/04/17 11/04/17 03:30 06:19 Temperature 97.4 F L Pulse Rate 90 Respiratory 18 18 Rate Blood Pressure 113/73 Laboratory Last Values WBC 8.5 K/mm3 (4.0-10.0) 11/02/17 06:00 RBC 4.28 M/mm3 (4.00-5.60) 11/02/17 06:00 Hgb 13.0 GM/dL (11.7-16.9) 11/02/17 06:00 Hct 39.8 % (35.4-49) 11/02/17 06:00 MCV 92.9 fl (80-96) 11/02/17 06:00 MCH 30.4 pg (25.7-33.7) 11/02/17 06:00 MCHC 32.8 g/dl (32.0-35.9) 11/02/17 06:00 RDW 13.1 % (11.9-15.9) D 11/02/17 06:00 Plt Count 295 K/MM3 (134-434) 11/02/17 06:00 MPV 7.8 fl (7.5-11.1) 11/02/17 06:00 Sodium 146 mmol/L (136-145) H 11/02/17 06:00 Potassium 4.1 mmol/L (3.5-5.1) 11/02/17 06:00 Chloride 108 mmol/L (98-107) H 11/02/17 06:00 Carbon Dioxide 25 mmol/L (21-32) 11/02/17 06:00 Anion Gap 13 MMOL/L (8-16) 11/02/17 06:00 BUN 14 mg/dL (7-18) 11/02/17 06:00 Creatinine 0.9 mg/dL (0.55-1.3) 11/02/17 06:00 Creat Clearance w eGFR > 60 (>60) 11/02/17 06:00 Random Glucose 93 mg/dL (74-106) 11/02/17 06:00 Calcium 8.9 mg/dL (8.5-10.1) 11/02/17 06:00 Total Bilirubin 0.6 mg/dL (0.2-1) 11/02/17 06:00 AST 29 U/L (15-37) 11/02/17 06:00 ALT 53 U/L (13-61) 11/02/17 06:00 Alkaline Phosphatase 84 U/L (45-117) 11/02/17 06:00 Total Protein 7.2 g/dl (6.4-8.2) 11/02/17 06:00 Albumin 3.8 g/dl (3.4-5.0) 11/02/17 06:00 Urine Color Ltyellow 11/01/17 14:40 Urine Appearance Clear 11/01/17 14:40 Urine pH 5.0 (5.0-8.0) 11/01/17 14:40 Ur Specific [place] 1.014 (1.001-1.035) 11/01/17 14:40 Urine Protein Negative (NEGATIVE) 11/01/17 14:40 Urine Glucose (UA) Negative (NEGATIVE) 11/01/17 14:40 Urine Ketones Negative (NEGATIVE) 11/01/17 14:40 Urine Blood Negative (NEGATIVE) 11/01/17 14:40 Urine Nitrite Negative (NEGATIVE) 11/01/17 14:40 Urine Bilirubin Negative (<2.0 mg/dL) 11/01/17 14:40 Urine Urobilinogen Negative mg/dL (0.2-1.0) 11/01/17 14:40 Ur Leukocyte Esterase Trace (NEGATIVE) 11/01/17 14:40 Urine WBC (Auto) 2 /hpf (3-5) 11/01/17 14:40 Urine RBC (Auto) <1 /hpf (0-3) 11/01/17 14:40 Ur Epithelial Cells Rare /HPF (FEW) 11/01/17 14:40 Hyaline Casts 1 /lpf 11/01/17 14:40 Urine Mucus Rare 11/01/17 14:40 RPR Titer Nonreactive (NONREACTIVE) 11/02/17 06:00 Labs noted Assessment: 11/04/17 10:50 Withdrawal sx Plan: Continue detox
[2017-11-04] MEDS: chlordiazePOXIDE HCL 10 MG CAPSULE PO SCH ×2 (17:15→22:00)
[2017-11-04] MEDS: THIAMINE HCL 100 MG TABLET (FP) PO SCH (22:00)
[2017-11-04] MEDS: QUEtiapine FUMARATE 50 MG TABLET PO SCH (22:01)
[2017-11-04] MEDS: CYCLOBENZAPRINE HCL 10 MG TABLET (FP) PO SCH (22:01)
[2017-11-04] MEDS: MIRTAZAPINE 30 MG TABLET (FP) PO SCH (22:01)
[2017-11-04] MEDS: LIDOCAINE PATCH REMOVAL MC SCH (22:01)
--- NOTE | 2017-11-04 23:25 | EKG ---
Test Reason : Blood Pressure : / mmHG Vent. Rate : 108 BPM Atrial Rate : 108 BPM P-R Int : 134 ms QRS Dur : 086 ms QT Int : 334 ms P-R-T Axes : 073 064 065 degrees QTc Int : 447 ms SINUS TACHYCARDIA POSSIBLE LEFT ATRIAL ENLARGEMENT LEFT VENTRICULAR HYPERTROPHY ABNORMAL ECG WHEN COMPARED WITH ECG OF 01-NOV-2016 19:39, NO SIGNIFICANT CHANGE WAS FOUND Confirmed by RICHARDSON MERCEDES MD ([id number]) on 11/04/2017 11:24:54 PM Referred By: Confirmed By:RICHARDSON MERCEDES MD
[2017-11-05] MEDS: chlordiazePOXIDE HCL 10 MG CAPSULE PO SCH (05:59)
[2017-11-05 06:27] VITALS: BP 123/75; PULSE 84; TEMP 96.7
[2017-11-05] MEDS: LIDOCAINE 5% TOPICAL PATCH TP SCH (09:08)
[2017-11-05] MEDS: NADOLOL 20 MG TABLET (FP) PO SCH (09:08)
[2017-11-05] MEDS: NICOTINE 21 MG/24 HOURS TOPICAL PATCH TD SCH (09:08)
[2017-11-05] MEDS: ACYCLOVIR 400 MG TABLET PO SCH (09:08)
[2017-11-05] MEDS: PANTOPRAZOLE 40 MG TABLET (FP) PO SCH (09:08)
[2017-11-05] MEDS: PRENATAL VITAMINS W/ FOLIC ACID TABLET (FP) PO SCH (09:08)
[2017-11-05] MEDS: TOLNAFTATE 1% CREAM 15 GM TUBE TP SCH (09:08)
[2017-11-05] MEDS ORDERED: METHADONE HCL 10 MG TABLET (FOR DETOX USE ONLY) PO SCH (10:00)
--- NOTE | 2017-11-05 13:52 | DS ---
[facility] Detox Discharge Summary Admission Date: 11/01/17 Discharge Date: 11/05/17 - History Present History: Alcohol Dependence, Cannabis Dependence, Cocaine Dependence, Opioid Dependence Pertinent Past History: Asthma HTN Hepatitis C - Physical Exam Results Vital Signs: Vital Signs Temperature 96.7 F L 11/05/17 06:27 Pulse Rate 84 11/05/17 06:27 Respiratory Rate 18 11/05/17 06:27 Blood Pressure 123/75 11/05/17 06:27 O2 Sat by Pulse Oximetry (%) Pertinent Admission Physical Exam Findings: Withdrawal sx Laboratory Tests 11/01/17 11/02/17 11/02/17 14:40 06:00 06:00 WBC 8.5 RBC 4.28 Hgb 13.0 Hct 39.8 MCV 92.9 MCH 30.4 MCHC 32.8 RDW 13.1 D Plt Count 295 MPV 7.8 Sodium 146 H Potassium 4.1 Chloride 108 H Carbon Dioxide 25 Anion Gap 13 BUN 14 Creatinine 0.9 Creat Clearance w eGFR > 60 Random Glucose 93 Calcium 8.9 Total Bilirubin 0.6 AST 29 ALT 53 Alkaline Phosphatase 84 Total Protein 7.2 Albumin 3.8 Urine Color Ltyellow Urine Appearance Clear Urine pH 5.0 Ur Specific [place] 1.014 Urine Protein Negative Urine Glucose (UA) Negative Urine Ketones Negative Urine Blood Negative Urine Nitrite Negative Urine Bilirubin Negative Urine Urobilinogen Negative Ur Leukocyte Esterase Trace Urine WBC (Auto) 2 Urine RBC (Auto) <1 Ur Epithelial Cells Rare Hyaline Casts 1 Urine Mucus Rare RPR Titer 11/02/17 06:00 WBC RBC Hgb Hct MCV MCH MCHC RDW Plt Count MPV Sodium Potassium Chloride Carbon Dioxide Anion Gap BUN Creatinine Creat Clearance w eGFR Random Glucose Calcium Total Bilirubin AST ALT Alkaline Phosphatase Total Protein Albumin Urine Color Urine Appearance Urine pH Ur Specific [place] Urine Protein Urine Glucose (UA) Urine Ketones Urine Blood Urine Nitrite Urine Bilirubin Urine Urobilinogen Ur Leukocyte Esterase Urine WBC (Auto) Urine RBC (Auto) Ur Epithelial Cells Hyaline Casts Urine Mucus RPR Titer Nonreactive Labs reviewed - Treatment Hospital Course: Detox Protocol Followed, Detoxed Safely, Responded well, Discharged Condition Good - Medication Discharge Medications: Ambulatory Orders Famotidine [Pepcid -] 20 mg PO DAILY 08/27/15 Nortriptyline HCl [Pamelor -] 25 mg PO HS 10/29/15 Nadolol 1 tab PO DAILY #30 tablet 02/04/16 Mirtazapine [Remeron -] 30 mg PO HS #30 tablet 09/19/16 Quetiapine Fumarate [Seroquel] 100 mg PO HS #30 tablet 09/19/16 Mirtazapine [Remeron -] 30 mg PO HS #30 tablet 11/02/16 Quetiapine Fumarate [Seroquel] 100 mg PO HS #30 tablet 11/02/16 Albuterol Sulfate Inhaler - [Ventolin HFA Inhaler -] 2 inh PO PRN PRN #1 cartridge 11/05/16 Ipratropium/Albuterol Sulfate [Combivent Respimat Inhal [place]] 1 inh IH QID #1 inhaler 11/05/16 Acyclovir [Zovirax -] 800 mg PO DAILY #30 tablet 11/08/16 Cholecalciferol (Vitamin D3) [D3-50] 50,000 unit PO WEEKLY #8 capsule 11/08/16 Cyclobenzaprine HCl [Flexeril -] 10 mg PO HS #5 tablet 03/02/17 Ibuprofen 800 mg PO Q6H #10 tablet 03/02/17 Thiamine Mononitrate [Vitamin B-1] 100 mg PO DAILY 11/01/17 Albuterol Sulfate Inhaler - [Ventolin HFA Inhaler -] 2 inh PO Q4H #1 inh Nadolol 20 mg PO DAILY #30 tablet 11/05/17 Tolnaftate 1% Cream [Tinactin 1% Cream -] 1 applic TP BID #1 cream..g. 11/05/17 - Diagnosis (1) HTN (hypertension), benign Status: Chronic (2) Hepatitis C Status: Chronic (3) Alcohol dependence with uncomplicated withdrawal Status: Acute (4) Cannabis dependence, uncomplicated Status: Chronic (5) Cocaine dependence Status: Chronic Qualifiers: Substance use status: uncomplicated Qualified Code(s): F14.20 - Cocaine dependence, uncomplicated (6) Insomnia Status: Acute Qualifiers: Insomnia type: unspecified Qualified Code(s): G47.00 - Insomnia, unspecified (7) Opioid dependence with withdrawal Status: Acute (8) Substance induced mood disorder Status: Acute (9) Asthma Status: Chronic Qualifiers: Asthma severity: mild intermittent Asthma complication type: uncomplicated (10) Depression Status: Chronic (11) Nicotine dependence Status: Chronic Qualifiers: Nicotine product type: cigarettes Substance use status: in withdrawal Qualified Code(s): F17.213 - Nicotine dependence, cigarettes, with withdrawal - AMA Did Patient Leave Against Medical Advice: No (F/U with your PCP within 1-2 weeks )
[2017-11-06] MEDS ORDERED: METHADONE HCL 5 MG TABLET (FOR DETOX USE ONLY) PO SCH (06:00)
== END 2017-11-05 09:03 | disposition home or self-care (01) | DRG 773 ==
LOC: YASAS 12:06 → Y3N 15:19
PROC: HZ2ZZZZ Detoxification Services for Substance Abuse Treatment (ICD-10-PCS; principal; 2017-11-01)
DX: F11.23 Opioid dependence with withdrawal (principal); F13.230 Sedative, hypnotic or anxiolytic dependence with withdrawal, uncomplicated; F10.230 Alcohol dependence with withdrawal, uncomplicated; F14.20 Cocaine dependence, uncomplicated; F12.20 Cannabis dependence, uncomplicated; F17.213 Nicotine dependence, cigarettes, with withdrawal; F19.24 Other psychoactive substance dependence with psychoactive substance-induced mood disorder; F32.9 Major depressive disorder, single episode, unspecified; B18.2 Chronic viral hepatitis C; I10 Essential (primary) hypertension; J45.20 Mild intermittent asthma, uncomplicated; B35.3 Tinea pedis; Z63.4 Disappearance and death of family member; Z91.5 Personal history of self-harm
CPT/HCPCS: 36415; 80053; 81003; 81015; 85027; 86593; 90688; 90732; 93005; 93010; G0008; G0009

== ENCOUNTER 2017-12-07 23:48 | Emergency (ER) | payer OTHER ==
--- NOTE | 2017-12-07 23:58 | PDOC ---
History of Present Illness - General Stated Complaint: ALCOHOL INTOXICATION Time Seen by Provider: 12/07/17 23:58 - History of Present Illness Initial Comments: 12/08/17 00:25 Mr. Loredo is a 57 yo male w/ unknown pmh who presents from [facility] for evaluation as they believe he is too intoxicated for their care. Patient endorses drinking this evening and reports "I'm sleepy." Otherwise denies any complaints. Unable to obtain further history from him at this time. Past History - Past Medical History Allergies/Adverse Reactions: Allergies Allergy/AdvReac Type Severity Reaction Status Date / Time No Known Drug Allergies Allergy Verified 12/08/17 00:11 lactose AdvReac Vomiting Verified 12/08/17 00:11 NKDA Allergy Uncoded 12/08/17 00:11 mayonnaise AdvReac Vomiting Uncoded 12/08/17 00:11 Home Medications: Ambulatory Orders Famotidine [Pepcid -] 20 mg PO DAILY 08/27/15 Nortriptyline HCl [Pamelor -] 25 mg PO HS 10/29/15 Nadolol 1 tab PO DAILY #30 tablet 02/04/16 Mirtazapine [Remeron -] 30 mg PO HS #30 tablet 09/19/16 Quetiapine Fumarate [Seroquel] 100 mg PO HS #30 tablet 09/19/16 Mirtazapine [Remeron -] 30 mg PO HS #30 tablet 11/02/16 Quetiapine Fumarate [Seroquel] 100 mg PO HS #30 tablet 11/02/16 Albuterol Sulfate Inhaler - [Ventolin HFA Inhaler -] 2 inh PO PRN PRN #1 cartridge 11/05/16 Ipratropium/Albuterol Sulfate [Combivent Respimat Inhal [place]] 1 inh IH QID #1 inhaler 11/05/16 Acyclovir [Zovirax -] 800 mg PO DAILY #30 tablet 11/08/16 Cholecalciferol (Vitamin D3) [D3-50] 50,000 unit PO WEEKLY #8 capsule 11/08/16 Cyclobenzaprine HCl [Flexeril -] 10 mg PO HS #5 tablet 03/02/17 Ibuprofen 800 mg PO Q6H #10 tablet 03/02/17 Thiamine Mononitrate [Vitamin B-1] 100 mg PO DAILY 11/01/17 Albuterol Sulfate Inhaler - [Ventolin HFA Inhaler -] 2 inh PO Q4H #1 inh Nadolol 20 mg PO DAILY #30 tablet 11/05/17 Tolnaftate 1% Cream [Tinactin 1% Cream -] 1 applic TP BID #1 cream..g. 11/05/17 Mirtazapine 15 mg PO HS #30 tablet 11/22/17 Quetiapine Fumarate [Seroquel -] 50 mg PO HS #30 tablet 11/22/17 Anemia: No Asthma: Yes (on albuerol inhaler) Cancer: No Cardiac Disorders: No CVA: No COPD: No CHF: No Dementia: No Diabetes: No GI Disorders: Yes (bleeding ulcer) Disorders: No HTN: Yes Hypercholesterolemia: No Kidney Stones: No Liver Disease: Yes (cirrhosis) Seizures: No Thyroid Disease: No - Surgical History Abdominal Surgery: No Appendectomy: No Cardiac Surgery: No Cholecystectomy: No Lung Surgery: No Neurologic Surgery: No Orthopedic Surgery: Yes (lower back (fall) discectomy 20 years ago) - Reproductive History Testicular Surgery: No - Suicide/Smoking/Psychosocial Hx Smoking History: Current every day smoker Have you smoked in the past 12 months: Yes Number of Cigarettes Smoked Daily: 10 Cigars Per Day: 0 'Breaking Loose' booklet given: 11/01/17 Hx Alcohol Use: Yes Drug/Substance Use Hx: Yes Substance Use Type: Alcohol, Cocaine, Heroin, Marijuana Hx Substance Use Treatment: Yes (03/26) Review of Systems - Review of Systems Comments:: 12/08/17 00:27 Unable to obtain further history. *Physical Exam - Physical Exam Comments: 12/08/17 00:27 GENERAL: +Patient asleep in bed and snoring loudly however arousable; speech slurred. In no acute distress HEAD: No signs of trauma, normocephalic, atraumatic EYES: PERRLA, EOMI, sclera anicteric, conjunctiva clear ENT: Auricles normal inspection, hearing grossly normal, nares patent, oropharynx clear without exudates. Moist mucosa NECK: Normal ROM, supple, no lymphadenopathy, JVD, or masses LUNGS: No distress, clear to auscultation bilaterally HEART: Regular rate and rhythm, normal S1 and S2, no murmurs, rubs or gallops, peripheral pulses normal and equal bilaterally. ABDOMEN: Soft, nontender, normoactive bowel sounds. No guarding, no rebound. No masses EXTREMITIES: Normal inspection, Normal range of motion, no edema. No clubbing or cyanosis. NEUROLOGICAL: +Unable to assess further. SKIN: Warm, Dry, normal turgor, no rashes or lesions noted. Medical Decision Making - Medical Decision Making 12/08/17 00:28 Mr. Loredo is a 57 yo male w/ unknown pmh who presents for evaluation of intoxication. Patient admits to drinking this evening and has no complaints; sleeping soundly in bed. Alcohol appreciable on patient breath; no trauma or other concerning findings noted on exam. Will observe for clinical sobriety and further evaluation. [facility] ordered for evaluation 90. 12/08/17 06:13 Patient alert and oriented with clear speech and steady gait. Requesting detox. Discussed with [facility] who will take patient at 7am. Discharging for detox. *DC/Admit/Observation/Transfer Diagnosis at time of Disposition: Intoxication - Discharge Dispostion Disposition: HOME - Referrals - Patient Instructions Printed Discharge Instructions: DI for Alcohol Abuse Additional Instructions: You were evaluated today in the ER for your intoxication. No concerning findings were found. Please follow-up immediately at [facility] for detox as discussed. Return to ER if any fever, chills, pain, or altered mental status. - Post Discharge Activity
[2017-12-08 00:14] VITALS: TEMP 96.8; BMI 25.0
--- NOTE | 2017-12-08 01:51 | PDOC ---
Attending Attestation - Resident Resident Name: Miah Chu - ED Attending Attestation I have performed the following: I have examined & evaluated the patient, The case was reviewed & discussed with the resident, I agree w/resident's findings & plan, Exceptions are as noted - HPI HPI: 12/08/17 04:01 57 years old past medical history significant for heroin and alcohol cocaine and marijuana abuse, asthma hepatitis C treated, hematocrit depression, presents to the ED secondary to intoxication Patient presented to [facility] for admission for detox was determined to be too intoxicated to be directly admitted was sent to the emergency department here. Here patient endorses drinking alcohol no evidence of any injury history Limited by call intoxication. - Physicial Exam PE: 12/08/17 04:01 Vitals: Triage Vital signs reviewed General Appearance: no acute distress, well nourished well developed, Head: Atraumatic, Neck: Supple;No Nucal rigidity Chest Wall: Nontender Cardiac: Regular rate and rhythym, no murmurs, no rubs, no gallops, Lungs: Clear to auscultation bilateral, good air movement bilaterally, Abdomen: Soft, non distended, normal bowel sounds, non tender to palpation Extremities: Full range of motion to all extremities, no cyanosis, clubbing, or edema Skin: Warm and dry, no rashes or lesions, no rash, no petechiae Neuro: Moving all extremities - Medical Decision Making 12/08/17 04:03 Patient presents with alcohol intoxication. Rule out to metabolize and discharged to [facility] for detox. Reevaluation patient no able to ambulate with steady gait case discussed with [facility] they have a bed for him we'll have patient transported to [facility] for detox.
[2017-12-08 07:18] VITALS: BP 130/79; PULSE 76
== END 2017-12-08 07:56 | disposition home or self-care (01) ==
LOC: JER 23:48
DX: F10.120 Alcohol abuse with intoxication, uncomplicated (principal); I10 Essential (primary) hypertension; K74.60 Unspecified cirrhosis of liver; J45.909 Unspecified asthma, uncomplicated; F32.9 Major depressive disorder, single episode, unspecified; Y90.9 Presence of alcohol in blood, level not specified
CPT/HCPCS: 82962; 99283-25

== ENCOUNTER 2017-12-09 00:53 | Inpatient (IN) | payer OTHER ==
--- NOTE | 2017-12-09 01:29 | HP ---
CIWA Score - CIWA Score Nausea/Vomitin-Mild Nausea/No Vomiting Muscle Tremors: 3 Anxiety: 0-No Anxiety, at Ease Agitation: 4-Moderately Restless Paroxysmal Sweats: No Perspiration Orientation: 0-Oriented Tacttile Disturbances: 2-Mild Itch/Numbness/Burn Auditory Disturbances: 0-None Visual Disturbances: 2-Mild Sensitivity Headache: 4-Moderately Severe CIWA-Ar Total Score: 16 Admission ROS S - HPI Chief Complaint: SEEKING DETOX FOR C/O WITHDRAWAL SX'S FROM ETOH Allergies/Adverse Reactions: Allergies Allergy/AdvReac Type Severity Reaction Status Date / Time No Known Drug Allergies Allergy Verified 12/08/17 00:11 lactose AdvReac Vomiting Verified 12/08/17 00:11 NKDA Allergy Uncoded 12/08/17 00:11 mayonnaise AdvReac Vomiting Uncoded 12/08/17 00:11 History of Present Illness: 57 Y.O. MALE WITH LONG HX/O ALCOHOLISM HERE FOR DETOX. CLIENT IS KNOWN TO THIS PROGRAM, LAST HERE 10/2017. HE PRESENTS WITH C/O WITHDRAWAL SX'S, CIWA 15 AND HE IS PRESENTLY INTOXICATED. RONAL .253. HE WAS DC FROM [facility] A FEW HOURS AGO AFTER BEING TREATED FOR INTOXICATION. HE IS PRESENTLY ON MAT HERE AT [facility]. HE REPORTS HE IS ON 30 MG OF METHADONE, LDM 12/08/2017. HE HAS BEEN REFERRED BY HIS OUTPATIENT PROGRAM WELL. CLIENT IS PRESENTLY INTOXICATED STATED EARLIER. HE IS NOTED WITH CRYING EPISODES, PARANOIA AND MAKING HOMOPHOBIC REMARKS. HE PRESENTLY HAVING A DIFFICULT TIME TO URINATE URINATE.DENIES SI ALTHOUGH HE HAS A HX/O, LAST BEING A FEW YEARS AGO. DENIES HX/O SEIZURES. LONGEST CLEAN TIME 1 YEAR. HE REPORTS HE IS HOMELESS PMHX- ASTHMA, HTN, PUD, CIRRHOSIS, HEPC WAS TREATED PSYCH- DEPRESSION, SCHIZOPHRENIA, ANXIETY Exam Limitations: Intoxication - Ebola screening Have you traveled outside of the country in the last 21 days: No Have you had contact with anyone from an Ebola affected area: No Have you been sick,other than usual withdrawal symptoms: No Do you have a fever: No - Review of Systems Constitutional: Chills, Loss of Appetite, Malaise, Night Sweats, Changes in sleep EENT: reports: Dental Problems (MISSING TEETH) Respiratory: reports: Shortness of Breath Cardiac: reports: No Symptoms Reported GI: reports: Nausea, Poor Fluid Intake : reports: Other (HESITANCY) Musculoskeletal: reports: Back Pain (CHRONIC) Integumentary: reports: Other (ABRAsions of fingers) Neuro: reports: Unsteady Gait (due to intocation) Endocrine: reports: No Symptoms Reported Hematology: reports: No Symptoms Reported Psychiatric: reports: Anxious, Depressed Other Systems: Reviewed and Negative Patient History - Patient Medical History Hx Anemia: No Hx Asthma: Yes (on albuerol inhaler) Hx Chronic Obstructive Pulmonary Disease (COPD): No Hx Cancer: No Hx Cardiac Disorders: No Hx Congestive Heart Failure: No Hx Hypertension: Yes Hx Hypercholesterolemia: No Hx Pacemaker: No HX Cerebrovascular Accident: No Hx Seizures: No Hx Dementia: No Hx Diabetes: No Hx Gastrointestinal Disorders: Yes (bleeding ulcer) Hx Liver Disease: Yes (cirrhosis) Hx Genitourinary Disorders: No Hx Sexually Transmitted Disorders: No Hx Renal Disease (ESRD): No Hx Thyroid Disease: No Hx Human Immunodeficiency Virus (HIV): No (10/24 negative) Hx Hepatitis C: Yes (treated) Hx Depression: Yes Hx Suicide Attempt: Yes (attempted to jump in fropnt pf train) Hx Bipolar Disorder: No Hx Schizophrenia: Yes - Patient Surgical History Past Surgical History: Yes Hx Neurologic Surgery: No Hx Cataract Extraction: No Hx Cardiac Surgery: No Hx Lung Surgery: No Hx Breast Surgery: No Hx Breast Biopsy: No Hx Abdominal Surgery: No Hx Appendectomy: No Hx Cholecystectomy: No Hx Genitourinary Surgery: No Hx Section: No Hx Orthopedic Surgery: Yes (lower back (fall) discectomy 20 years ago) Anesthesia Reaction: No - PPD History Previous Implant?: Yes Documented Results: Negative w/proof Implanted On Prior [facility] Admission?: Yes Date: 11/03/17 Results: 0 mm PPD to be Administered?: No - Smoking Cessation Smoking history: Current every day smoker Have you smoked in the past 12 months: Yes Aproximately how many cigarettes per day: 2 Cigars Per Day: 5 Hx Chewing Tobacco Use: No Initiated information on smoking cessation: Yes 'Breaking Loose' booklet given: 12/09/17 - Substance & Tx. History Hx Alcohol Use: Yes Hx Substance Use: Yes Substance Use Type: Alcohol Hx Substance Use Treatment: Yes ([facility]) - Substances Abused vodka/beer Route: Oral Frequency: Daily Amount used: 4 pints/ 3- 24 oz can Age of first use: 16 Date of Last Use: 12/08/17 Family Disease History - Family Disease History Family Disease History: Diabetes: Grandparent, [place]: Mother (mom a&w, survived breast ca), Other: Father (dec'd, alcohol ), Brother (none), Sister (2 a&w), Son (none), Daughter (1 a&w with stable asthma) Admission Physical Exam [facility] - Physical General Appearance: Yes: Appropriately Dressed, Alcohol on Breath, Intoxicated, Tremorous, Irritable, Sweating HEENTM: Yes: EOMI, Normocephalic, Normal Voice, ROMARIO, Pharynx Normal, Other ( DRY MM/ missing teeth) Respiratory: Yes: Chest Non-Tender, Lungs Clear, Normal Breath Sounds, No Respiratory Distress, No Accessory Muscle Use Neck: Yes: No masses,lesions,Nodules, Supple, Trachea in good position Breast: Yes: Breast Exam Deferred Cardiology: Yes: Regular Rhythm, Regular Rate, S1, S2 Abdominal: Yes: Normal Bowel Sounds, Non Tender, Soft Genitourinary: Yes: Hesitency Back: Yes: Normal Inspection Musculoskeletal: Yes: full range of Motion, Gait Steady Extremities: Yes: Normal Range of Motion, Non-Tender, Tremors Neurological: Yes: Fully Oriented, Alert, Motor Strength 5/5, Depressed Affect Integumentary: Yes: Warm, Moist, Other (abrasions to fingers and ble shins) Lymphatic: Yes: Within Normal Limits - Diagnostic (1) Alcohol dependence with uncomplicated withdrawal Current Visit: Yes Status: Acute (2) Drug-induced mood disorder Current Visit: Yes Status: Suspected (3) Intoxication Current Visit: Yes Status: Acute (4) Substance induced mood disorder Current Visit: Yes Status: Suspected (5) Asthma Current Visit: Yes Status: Chronic Qualifiers: Asthma severity: mild intermittent Asthma complication type: uncomplicated Comment: urge to avoid smoking, he will f/u with pcp, cont mdi's. (6) COPD (chronic obstructive pulmonary disease) Current Visit: Yes Status: Chronic Qualifiers: COPD type: emphysema Emphysema type: unilateral Qualified Code(s): J43.0 - Unilateral pulmonary emphysema [MacLeod's syndrome] Comment: counseled stop smoking, counseled to adhere to inhalers, needs pulmonary eval/f/u (7) GERD (gastroesophageal reflux disease) Current Visit: Yes Status: Chronic Qualifiers: Esophagitis presence: esophagitis presence not specified Qualified Code(s) : K21.9 - Gastro-esophageal reflux disease without esophagitis (8) HTN (hypertension), benign Current Visit: Yes Status: Chronic (9) Lactose intolerance in adult Current Visit: Yes Status: Chronic (10) Methadone maintenance therapy patient Current Visit: Yes Status: Chronic Comment: 30 MG VERIFICATION PENDING (11) Nicotine dependence Current Visit: Yes Status: Chronic Qualifiers: Nicotine product type: cigarettes Substance use status: in withdrawal Qualified Code(s): F17.213 - Nicotine dependence, cigarettes, with withdrawal Comment: counseled cessation, Rx patch (12) At risk for dehydration due to poor fluid intake Current Visit: Yes Status: Acute Cleared for Admission [facility] - Detox or Rehab S Level of Care: Medically Managed Detox Regimen/Protocol: Librium Claeared for Rehab Admission: No [facility] Breath Alcohol Content Breath Alcohol Content: 0.253 Vital Signs - Vital Signs Vital Signs Refused: No Temperature: 97.9 F Temperature Source: Oral Pulse Rate: 87 Respiratory Rate: 20 Blood Pressure: 130/90 BP Location: Left Arm Blood Pressure Position: Sitting - Height Height: 5 ft 7 in - Weight Weight: 70.307 kg Weight Measurement Method: Standing Scale Body Mass Index (BMI): 24.3 - Bowel Function Bowel Movement: No Urine Drug Screen - Test Device Lot Number: [id number] Expiration Date: 11/06/19 - Control Is Test Valid: Yes - Results Drug Screen Negative: No Urine Drug Screen Results: BZO-Benzodiazepines, MTD-Methadone
[2017-12-09] MEDS ORDERED: ALBUTEROL SO4 8 GM HFA INHALER IH PRN (02:00)
[2017-12-09] MEDS ORDERED: MAGNESIUM CITRATE 300 ML BOTTLE PO PRN (02:04)
[2017-12-09] MEDS ORDERED: MENTHOL/PHENOL 1 EACH UD MM PRN (02:04)
[2017-12-09] MEDS ORDERED: MAGNESIUM HYDROX 2400MG/30ML ORAL SUSPENSION 30 ML CUP PO PRN (02:04)
[2017-12-09] MEDS ORDERED: chlordiazePOXIDE HCL 25 MG CAPSULE PO PRN (02:04)
[2017-12-09] MEDS ORDERED: LOPERAMIDE HCL 2 MG CAPSULE PO PRN (02:04)
[2017-12-09] MEDS ORDERED: hydrOXYzine PAMOATE 50 MG CAPSULE (FP) PO PRN (02:04)
[2017-12-09] MEDS ORDERED: IBUPROFEN 400 MG TABLET (FP) PO PRN (02:04)
[2017-12-09] MEDS ORDERED: NICOTINE POLACRILEX 2 MG GUM BC PRN (02:04)
[2017-12-09] MEDS ORDERED: guaiFENesin/D-METHORPHAN HB 10 ML UNIT-DOSE CUPS PO PRN (02:04)
[2017-12-09] MEDS ORDERED: ACETAMINOPHEN 325 MG TABLET (FP) PO PRN (02:04)
[2017-12-09] MEDS ORDERED: P-EPHED 60MG/TRIPROLIDI 2.5MG TABLET PO PRN (02:04)
[2017-12-09] MEDS ORDERED: MAG HYDROX/AL HYDROX/SIMETH 30 ML UNIT-DOSE CUP PO PRN (02:04)
--- NOTE | 2017-12-09 02:57 | PN ---
[facility] Progress Note Note: CLIENT TRANSFERRED TO [facility] FOR STABILIZATION FOR WORSENING INTOXICATION AND C/ O SOB,. CLIENT WAS OBSERVED BY STAFF DRINKING AN ALCOHOLIC SUBSTANCE FROM A CONCEALED BOTTLE AFTER STATING IS WAS "GREEN TEA" HE WAS WAITING TO BE TRANSITIONED TO THE UNIT. HE IS NOW EXHIBITING PARANOIA, WORSENING AGITATION, UNSTEADY GAIT AND AUDITORY HALLUCINATION. REFUSED REPEAT RONAL CASE D/W DR. HOLT CLIENT MAYBE TRANSFERRED BACK ONCE MEDICALLY CLEARED/STABILIZED
[2017-12-09] MEDS: chlordiazePOXIDE HCL 25 MG CAPSULE PO SCH ×4 (07:52→22:30)
[2017-12-09 09:36] VITALS: BMI 23.6
[2017-12-09] MEDS ORDERED: METHADONE HCL 10 MG TABLET PO ONE (10:00)
--- NOTE | 2017-12-09 10:00 | PN ---
S Progress Note Note: Patient returns from evaluation at ED - alert, mood labile (irritable, teary), limping - showed me large callous plantar surface of left foot - states he had been to see a scratcher but was not seen after waiting two hours and left, will order tinactin cream for now.
[2017-12-09] MEDS: HYDROCHLOROTHIAZIDE 12.5 MG CAPSULE (FP) PO SCH (10:55)
[2017-12-09] MEDS: PRENATAL VITAMINS W/ FOLIC ACID TABLET (FP) PO SCH (10:55)
[2017-12-09] MEDS: PANTOPRAZOLE 40 MG TABLET (FP) PO SCH (10:55)
[2017-12-09] MEDS: NICOTINE 14 MG/24 HOURS TOPICAL PATCH TD SCH (10:56)
[2017-12-09] MEDS: TOLNAFTATE 1% CREAM 15 GM TUBE TP SCH ×2 (10:56→22:31)
--- NOTE | 2017-12-09 12:23 | EKG ---
Test Reason : Blood Pressure : / mmHG Vent. Rate : 085 BPM Atrial Rate : 085 BPM P-R Int : 142 ms QRS Dur : 102 ms QT Int : 392 ms P-R-T Axes : 066 033 058 degrees QTc Int : 466 ms NORMAL SINUS RHYTHM INCOMPLETE RIGHT BUNDLE BRANCH BLOCK VOLTAGE CRITERIA FOR LEFT VENTRICULAR HYPERTROPHY WHEN COMPARED WITH ECG OF 01-NOV-2017 17:41, NO SIGNIFICANT CHANGE WAS FOUND Confirmed by CASSIDY SAMSON MD ([id number]) on 12/09/2017 12:23:19 PM Referred By: Confirmed By:CASSIDY SAMSON MD
--- NOTE | 2017-12-09 14:28 | CONSULT ---
[facility] Psychiatric Consult - Data Date of interview: 12/09/17 Admission source: [facility] Identifying data: Readmission to [facility] for this 57 y/o AA male seeking detoxification treatment, on , for opioid and alcohol dependence. Patient is , a father of four, domiciled, unemployed and supported on SSI benefits. Substance Abuse History: Confirmed by the patient in this interview. Details in current [facility] report : Smoking history: Current every day smoker. Have you smoked in the past 12 months: Yes. Aproximately how many cigarettes per day: 2. Cigars Per Day: 5. Hx Chewing Tobacco Use: No. Initiated information on smoking cessation: Yes. 'Breaking Loose' booklet given: 12/09/17. - Substance & Tx. History. Hx Alcohol Use: Yes. Hx Substance Use: Yes. Substance Use Type : Alcohol. Hx Substance Use Treatment: Yes ([facility]). - Substances Abused. vodka/beer. Route: Oral. Frequency: Daily. Amount used: 4 pints/ 3- 24 oz can. Age of first use: 16. Date of Last Use: 12/08/17 Medical History: History of bilateral carpal tunnel syndrome, COPD, vitamin D deficiency, GERD, liver cirrhosis, hepatitis C (treated), bronchial asthma and a past history of treatment for gonorrhea + syphilis. Noted report of remote history of renal failure (managed with dialysis) 10 years ago + orthosurgery ( discectomy) twenty years ago according to records. Patient ambulates with a pronounced limp. Psychiatric History: Patient denies history of psychiatric hospitalizations. Mr Loredo endorses the diagnosis of MDD and Anxiety Disorder. Medicated with seroquel 50 mg/hs + remeron 15 mg/hs. OPD care is rendered at the [facility] in [facility]. Patient remains on methadone maintenance (30 mg/day) at the [facility]- [facility] program.No reported history of suicide attempts. Physical/Sexual Abuse/Trauma History: No reported history of abuse. Traumatized by the sudden of (heart attack) in 2017. Additional Comment: Urine Drug Screen Results: BZO-Benzodiazepines, MTD- Methadone. Noted. Mental Status Exam - Mental Status Exam Alert and Oriented to: Time, Place, Person Cognitive Function: Good Patient Appearance: Well Groomed (short stature) Mood: Nervous, Withdrawn, Anxious Affect: Mood Congruent, Constricted Patient Behavior: Fatigued, Cooperative Speech Pattern: Clear, Appropriate Voice Loudness: Normal Thought Process: Goal Oriented Thought Disorder: Not Present Hallucinations: Denies Suicidal Ideation: Denies Homicidal Ideation: Denies Insight/Judgement: Poor Sleep: Poorly, Difficulty falling asleep Appetite: Fair Muscle strength/Tone: Normal Gait/Station: Other (unsteady gait due to orthopedic issues) Psychiatric Findings - Problem List ([place] 1, 2,3) (1) Opioid dependence with withdrawal Current Visit: Yes Status: Acute (2) Alcohol dependence with uncomplicated withdrawal Current Visit: Yes Status: Acute (3) Opioid dependence on agonist therapy Current Visit: Yes Status: Chronic (4) Nicotine dependence Current Visit: Yes Status: Acute Qualifiers: Nicotine product type: cigarettes Substance use status: in withdrawal Qualified Code(s): F17.213 - Nicotine dependence, cigarettes, with withdrawal Comment: counseled cessation, Rx patch (5) Substance induced mood disorder Current Visit: Yes Status: Acute (6) Insomnia Current Visit: Yes Status: Acute - Initial Treatment Plan Initial Treatment Plan: Psychoeducation. Sleep hygiene. Detoxification. Psychotherapy (group, individual, supportive). AA meetings. Medications : seroquel 50 mg po hs + remeron 15 mg po hs. Side effects/benefits of both drugs are discussed with the patient. Mr Lroedo is in agreement with this plan of care. Observation.
[2017-12-09 19:39] LABS: URINE APPEARANCE CLEAR; URINE BILIRUBIN NEGATIVE (<2.0 mg/dL); URINE COLOR LTYELLOW; URINE GLUCOSE (UA) NEGATIVE (NEGATIVE); URINE KETONE NEGATIVE (NEGATIVE); URINE LEUK ESTERASE NEGATIVE (NEGATIVE); URINE NITRITE NEGATIVE (NEGATIVE); URINE PROTEIN NEGATIVE (NEGATIVE); URINE UROBILINOGEN NEGATIVE mg/dL (0.2-1.0)
[2017-12-09] MEDS ORDERED: MIRTAZAPINE 15 MG TABLET (FP) PO SCH (22:00)
[2017-12-09] MEDS ORDERED: MELATONIN 5 MG TABLETS PO PRN (22:00)
[2017-12-09] MEDS ORDERED: QUEtiapine FUMARATE 50 MG TABLET PO SCH (22:00)
[2017-12-09] MEDS ORDERED: THIAMINE HCL 100 MG TABLET (FP) PO SCH (22:00)
[2017-12-10] MEDS: chlordiazePOXIDE HCL 25 MG CAPSULE PO SCH ×2 (05:41→10:34)
[2017-12-10] MEDS: PANTOPRAZOLE 40 MG TABLET (FP) PO SCH (10:34)
[2017-12-10] MEDS: HYDROCHLOROTHIAZIDE 12.5 MG CAPSULE (FP) PO SCH (10:34)
[2017-12-10] MEDS: PRENATAL VITAMINS W/ FOLIC ACID TABLET (FP) PO SCH (10:34)
[2017-12-10] MEDS: TOLNAFTATE 1% CREAM 15 GM TUBE TP SCH (10:34)
[2017-12-10] MEDS: NICOTINE 14 MG/24 HOURS TOPICAL PATCH TD SCH (10:35)
[2017-12-10 10:43] LABS: HEMOGLOBIN 15.6 GM/dL (11.7-16.9); MCH 32.2 pg (25.7-33.7); MCHC 33.9 g/dl (32.0-35.9); MEAN CELL VOLUME 94.9 fl (80-96); MEAN PLT VOLUME 8.1 fl (7.5-11.1); PLATELET COUNT 294 K/MM3 (134-434); RBC 4.85 M/mm3 (4.00-5.60); RDW 13.6 % (11.9-15.9); WHITE BLOOD COUNT 9.8 K/mm3 (4.0-10.0)
[2017-12-10] MEDS ORDERED: METHADONE HCL 10 MG TABLET PO SCH (10:45)
[2017-12-10 10:58] LABS: ALBUMIN 3.4 g/dl (3.4-5.0); ALK PHOS 103 U/L (45-117); ANION GAP 8 MMOL/L (8-16); BILIRUBIN,TOTAL 0.7 mg/dL (0.2-1); BLOOD UREA NITROGEN 13 mg/dL (7-18); CALCIUM 9.3 mg/dL (8.5-10.1); CHLORIDE 102 mmol/L (98-107); CO2 28 mmol/L (21-32); CREATININE 0.8 mg/dL (0.55-1.3); GLUCOSE,RANDOM 61 mg/dL (74-106); POTASSIUM 4.7 mmol/L (3.5-5.1); SGOT/AST 39 U/L (15-37); SGPT/ALT 27 U/L (13-61); SODIUM 137 mmol/L (136-145); TOT PROT 7.1 g/dl (6.4-8.2)
[2017-12-10] MEDS ORDERED: METHADONE HCL 10 MG TABLET ONE (13:17)
[2017-12-10 13:57] VITALS: BP 150/90; PULSE 84; TEMP 97.2
--- NOTE | 2017-12-10 15:41 | DS ---
[facility] Detox Discharge Summary Admission Date: 12/09/17 Discharge Date: 12/10/17 - History Present History: Alcohol Dependence, Opioid Dependence, MMTP Additional Comments: Patient threatened to leave AMA this morning. Product Support Representative and RN spoke with patient and he calmed down and decided to stay. He has been very agitated this morning. Patient later decided to leave AMA. Product Support Representative encouraged patient to complete detox but he stated that he has to go. Patient instructed to call 911 if feels sick or any withdrawal symptoms and to see his PCP within 3 days. Patient is A/A/Ox3 , in nad and verbalized understanding. Pertinent Past History: Hepatitis C Liver cirrhosis HTN Nicotine dependence Opioid dependence on agonist Alcohol dependence Depression Schizophrenia - Physical Exam Results Vital Signs: Vital Signs Temperature 97.2 F L 12/10/17 13:56 Pulse Rate 84 12/10/17 13:56 Respiratory Rate 18 12/10/17 13:56 Blood Pressure 150/90 12/10/17 13:56 O2 Sat by Pulse Oximetry (%) Pertinent Admission Physical Exam Findings: Withdrawal symptoms Laboratory Tests 12/09/17 12/10/17 12/10/17 12:00 07:44 07:44 WBC 9.8 RBC 4.85 Hgb 15.6 Hct 46.0 D MCV 94.9 MCH 32.2 MCHC 33.9 RDW 13.6 Plt Count 294 MPV 8.1 Sodium 137 Potassium 4.7 Chloride 102 Carbon Dioxide 28 Anion Gap 8 BUN 13 Creatinine 0.8 Creat Clearance w eGFR > 60 Random Glucose 61 L Calcium 9.3 Total Bilirubin 0.7 AST 39 H ALT 27 Alkaline Phosphatase 103 Total Protein 7.1 Albumin 3.4 Urine Color Ltyellow Urine Appearance Clear Urine pH 6.0 Ur Specific [place] 1.006 L Urine Protein Negative Urine Glucose (UA) Negative Urine Ketones Negative Urine Blood Negative Urine Nitrite Negative Urine Bilirubin Negative Urine Urobilinogen Negative Ur Leukocyte Esterase Negative RPR Titer 12/10/17 07:44 WBC RBC Hgb Hct MCV MCH MCHC RDW Plt Count MPV Sodium Potassium Chloride Carbon Dioxide Anion Gap BUN Creatinine Creat Clearance w eGFR Random Glucose Calcium Total Bilirubin AST ALT Alkaline Phosphatase Total Protein Albumin Urine Color Urine Appearance Urine pH Ur Specific [place] Urine Protein Urine Glucose (UA) Urine Ketones Urine Blood Urine Nitrite Urine Bilirubin Urine Urobilinogen Ur Leukocyte Esterase RPR Titer Nonreactive Labs reviewed - Medication Discharge Medications: Ambulatory Orders Famotidine [Pepcid -] 20 mg PO DAILY 08/27/15 Ipratropium/Albuterol Sulfate [Combivent Respimat Inhal [place]] 1 inh IH QID #1 inhaler 11/05/16 Acyclovir [Zovirax -] 800 mg PO DAILY #30 tablet 11/08/16 Cholecalciferol (Vitamin D3) [D3-50] 50,000 unit PO WEEKLY #8 capsule 11/08/16 Cyclobenzaprine HCl [Flexeril -] 10 mg PO HS #5 tablet 03/02/17 Ibuprofen 800 mg PO Q6H #10 tablet 03/02/17 Thiamine Mononitrate [Vitamin B-1] 100 mg PO DAILY 11/01/17 Albuterol Sulfate Inhaler - [Ventolin HFA Inhaler -] 2 inh PO Q4H #1 inh Tolnaftate 1% Cream [Tinactin 1% Cream -] 1 applic TP BID #1 cream..g. 11/05/17 Quetiapine Fumarate [Seroquel -] 50 mg PO HS #30 tablet 11/22/17 Mirtazapine [Remeron -] 15 mg PO DAILY 12/09/17 - Diagnosis (1) Cirrhosis of liver Current Visit: Yes Status: Chronic (2) Alcohol dependence with uncomplicated withdrawal Current Visit: Yes Status: Acute (3) Insomnia Current Visit: Yes Status: Acute (4) Nicotine dependence Current Visit: Yes Status: Chronic Qualifiers: Nicotine product type: cigarettes Substance use status: in withdrawal Qualified Code(s): F17.213 - Nicotine dependence, cigarettes, with withdrawal (5) Substance induced mood disorder Current Visit: Yes Status: Acute (6) Depression Current Visit: No Status: Chronic (7) HTN (hypertension), benign Current Visit: Yes Status: Chronic (8) Hepatitis C Current Visit: No Status: Chronic (9) Methadone maintenance therapy patient Current Visit: Yes Status: Chronic (10) Opioid dependence on agonist therapy Current Visit: Yes Status: Chronic - AMA Did Patient Leave Against Medical Advice: Yes (Call 911 if feeling sick or any withdrawal symptoms)
[2017-12-11] MEDS ORDERED: chlordiazePOXIDE 5 MG CAPSULE PO SCH (05:00)
[2017-12-12] MEDS ORDERED: chlordiazePOXIDE HCL 10 MG CAPSULE PO SCH (05:00)
== END 2017-12-10 15:17 | disposition left against medical advice (07) | DRG 770 ==
LOC: YASAS 00:53 → Y3N 02:11
PROC: HZ2ZZZZ Detoxification Services for Substance Abuse Treatment (ICD-10-PCS; principal; 2017-12-09)
DX: F10.230 Alcohol dependence with withdrawal, uncomplicated (principal); F11.20 Opioid dependence, uncomplicated; F17.213 Nicotine dependence, cigarettes, with withdrawal; F19.24 Other psychoactive substance dependence with psychoactive substance-induced mood disorder; F32.9 Major depressive disorder, single episode, unspecified; F20.9 Schizophrenia, unspecified; B18.2 Chronic viral hepatitis C; K21.9 Gastro-esophageal reflux disease without esophagitis; K74.60 Unspecified cirrhosis of liver; J44.9 Chronic obstructive pulmonary disease, unspecified; G47.00 Insomnia, unspecified; Z86.19 Personal history of other infectious and parasitic diseases
CPT/HCPCS: 36415; 80053; 81003; 85027; 86593; 93005; 93010

== ENCOUNTER 2017-12-09 03:17 | Emergency (ER) | payer OTHER ==
--- NOTE | 2017-12-09 03:37 | PDOC ---
History of Present Illness - General Chief Complaint: Shortness of Breath Stated Complaint: DIFFICULTY BREATHING Time Seen by Provider: 12/09/17 03:36 History Source: Patient Exam Limitations: Intoxication, Other (Pt being inappropriate, asked to stop, and pt cursing and hostile. Answered limited ROS.) - History of Present Illness Initial Comments: Pt is a 57 yo M, with PMH of Hep C, asthma, and polysubstance abuse (opioid, cocaine, alcohol, PCP, THC), who is presenting from [facility] ( admitted yesterday) for complaints of SOB, which pt states is a "panic attack". According to EMS, pt was at [facility], and walked outside. When he returned, he was drinking an [employer] iced tea can, which smelled of alcohol and the pt was stumbling. Pt admits to 24oz Heineken beer and 1 pint of vodka while he was gone from the facility. He has no current complaints at this time. He states the SOB lasted about 30 minutes, and feels the same as when he had prior panic attacks. Pt is inappropriate, and when asked to stop, is cursing at staff and is hostile. Will provide only limited ROS before becoming agitated. Pt smokes 1 ppd, drinks alcohol, and admits to other drug use (see above). No recent travel or sick contacts. 12/09/17 04:20 Past History - Travel Traveled outside of the country in the last 30 days: No Close contact w/someone who was outside of country & ill: No - Past Medical History Allergies/Adverse Reactions: Allergies Allergy/AdvReac Type Severity Reaction Status Date / Time No Known Drug Allergies Allergy Verified 12/09/17 03:32 lactose AdvReac Vomiting Verified 12/09/17 03:32 NKDA Allergy Uncoded 12/09/17 03:32 mayonnaise AdvReac Vomiting Uncoded 12/09/17 03:32 Home Medications: Ambulatory Orders Famotidine [Pepcid -] 20 mg PO DAILY 08/27/15 Nortriptyline HCl [Pamelor -] 25 mg PO HS 10/29/15 Nadolol 1 tab PO DAILY #30 tablet 02/04/16 Mirtazapine [Remeron -] 30 mg PO HS #30 tablet 09/19/16 Quetiapine Fumarate [Seroquel] 100 mg PO HS #30 tablet 09/19/16 Mirtazapine [Remeron -] 30 mg PO HS #30 tablet 11/02/16 Quetiapine Fumarate [Seroquel] 100 mg PO HS #30 tablet 11/02/16 Albuterol Sulfate Inhaler - [Ventolin HFA Inhaler -] 2 inh PO PRN PRN #1 cartridge 11/05/16 Ipratropium/Albuterol Sulfate [Combivent Respimat Inhal [place]] 1 inh IH QID #1 inhaler 11/05/16 Acyclovir [Zovirax -] 800 mg PO DAILY #30 tablet 11/08/16 Cholecalciferol (Vitamin D3) [D3-50] 50,000 unit PO WEEKLY #8 capsule 11/08/16 Cyclobenzaprine HCl [Flexeril -] 10 mg PO HS #5 tablet 03/02/17 Ibuprofen 800 mg PO Q6H #10 tablet 03/02/17 Thiamine Mononitrate [Vitamin B-1] 100 mg PO DAILY 11/01/17 Albuterol Sulfate Inhaler - [Ventolin HFA Inhaler -] 2 inh PO Q4H #1 inh Nadolol 20 mg PO DAILY #30 tablet 11/05/17 Tolnaftate 1% Cream [Tinactin 1% Cream -] 1 applic TP BID #1 cream..g. 11/05/17 Mirtazapine 15 mg PO HS #30 tablet 11/22/17 Quetiapine Fumarate [Seroquel -] 50 mg PO HS #30 tablet 11/22/17 Anemia: No Asthma: Yes (on albuerol inhaler) Cancer: No Cardiac Disorders: No CVA: No COPD: No CHF: No Dementia: No Diabetes: No GI Disorders: Yes (bleeding ulcer) Disorders: No HTN: Yes Hypercholesterolemia: No Kidney Stones: No Liver Disease: Yes (cirrhosis) Seizures: No Thyroid Disease: No - Surgical History Abdominal Surgery: No Appendectomy: No Cardiac Surgery: No Cholecystectomy: No Lung Surgery: No Neurologic Surgery: No Orthopedic Surgery: Yes (lower back (fall) discectomy 20 years ago) - Reproductive History Testicular Surgery: No - Suicide/Smoking/Psychosocial Hx Smoking History: Current every day smoker Have you smoked in the past 12 months: Yes Number of Cigarettes Smoked Daily: 2 Cigars Per Day: 5 Information on smoking cessation initiated: No 'Breaking Loose' booklet given: 12/09/17 Hx Alcohol Use: No Drug/Substance Use Hx: No Substance Use Type: Alcohol Hx Substance Use Treatment: Yes ([facility]) Review of Systems - Review of Systems Able to Perform ROS?: No (hostile/non-cooperative) Is the patient limited Uzbek proficient: Yes Constitutional: No: Fever Respiratory: Yes: Shortness of Breath. No: Cough, Productive cough, Hemoptysis Cardiac (ROS): No: Chest Pain Psychiatric: Yes: Anxiety ("panic attacks"), Other (polysubstance abuse) *Physical Exam - Vital Signs Last Vital Signs Temp Pulse Resp BP Pulse Ox 98.1 F 82 18 153/94 97 12/09/17 03:21 12/09/17 03:21 12/09/17 03:21 12/09/17 03:21 12/09/17 03:21 - Physical Exam General Appearance: Yes: Nourished, Appropriately Dressed, Alcohol on Breath, Other (Pt hostile with staff and becomes agitated with questions, inappropriate with female staff). No: Apparent Distress (pt sitting comfortably, vitals stable) HEENT: positive: EOMI, Pharynx Normal, Hearing Grossly Normal. negative: Normal ENT Inspection (poor dentition), Normal Voice (hoarse voice, pt states chronic), Scleral Icterus (R), Scleral Icterus (L), Pharyngeal Erythema, Tonsillar Exudate, Tonsillar Erythema, Rhinorrhea Neck: positive: Trachea midline, Supple. negative: Tender, Rigid, Lymphadenopathy (R), Lymphadenopathy (L) Respiratory/Chest: positive: Wheezing (b/l wheezing anterior and posterior). negative: Chest Tender, Lungs Clear, Normal Breath Sounds, Respiratory Distress , Accessory Muscle Use, Crackles, Stridor Cardiovascular: positive: Regular Rhythm, Regular Rate, Edema. negative: Murmur Vascular Pulses: Carotid (R): 4+, Carotid (L): 4+ Gastrointestinal/Abdominal: positive: Normal Bowel Sounds, Flat, Organomegaly. negative: Tender, Pulsatile Mass, Distended, Guarding, Rebound Rectal Exam: positive: deferred Lymphatic: negative: Adenopathy, Tenderness Musculoskeletal: positive: Normal Inspection. negative: CVA Tenderness Extremity: positive: Normal Capillary Refill, Normal Inspection, Normal Range of Motion, Pelvis Stable. negative: Tender Integumentary: positive: Normal Color, Dry, Warm. 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 negative: Normal Mood/Affect (agitated and hostile with staff with questioning), EOM Palsy, Facial Droop Medical Decision Making - Medical Decision Making Pt was seen at bedside, also will be seen by attending Dr. Garcia. Pt is inappropriate with female staff, and when asked to stop, is cursing at staff and is hostile. Will provide only limited ROS before becoming agitated. Pt presenting from [facility] (admitted yesterday) for complaints of SOB , which pt states is a "panic attack". According to EMS, pt was at [facility], and walked outside. When he returned, he was drinking an [employer] iced tea can, which smelled of alcohol and the pt was stumbling. Pt admits to 24oz Heineken beer and 1 pint of vodka while he was gone from the facility. He has no current complaints at this time. He states the SOB lasted about 30 minutes, and feels the same as when he had prior panic attacks. PE showed normal vital signs (O2 saturation 97-98% on RA). B/l wheezing posterior and anterior. Pt has hoarse voice which he states is normal for him. Considering panic attack vs asthma exacerbation. Ordered work-up including ECG and chest x-ray. Will provide 2 nebulizer duoneb treatments and 10 mg PO decadron for improvement of SOB and wheezing. Will continue to reassess pt and monitor for symptomatic improvement. 12/09/17 04:05 ECG NSR and similar to prior. 12/09/17 04:14 Chest x-ray looked unchanged from prior. Pt alert & oriented and vitals continue to be stable. Pt states SOB improved after nebulizer treatments. Lung sounds have significantly decreased wheezing. Considering normal ECG, imaging, and symptomatic improvement, pt can be discharged to [facility] with follow-up. Pt advised to follow-up with PCP in 1-2 days. Strict return precautions provided with pt understanding. 12/09/17 05:45 *DC/Admit/Observation/Transfer Diagnosis at time of Disposition: Shortness of breath Asthma Qualifiers: Asthma severity: unspecified severity Asthma persistence: unspecified Asthma complication type: with acute exacerbation Qualified Code(s): J45.901 - Unspecified asthma with (acute) exacerbation - Discharge Dispostion Disposition: [facility] Condition at time of disposition: Good Decision to Admit order: No - Referrals Referrals: [facility] [place] [Provider Group] - Patient Instructions Printed Discharge Instructions: DI for Shortness of Breath Additional Instructions: You were seen in the ER today for shortness of breath. The results of your imaging today were normal. Please follow-up with your primary care doctor within 1-2 days to discuss your visit and make sure your symptoms have improved. Please return to the ER if you have any worsening pain, worsening shortness of breath, development of fevers or chills, loss of consciousness, inability to tolerate food or fluids, or any other concerns. - Post Discharge Activity
--- NOTE | 2017-12-09 03:38 | PDOC ---
Attending Attestation - Resident Resident Name: Trudy Walker - ED Attending Attestation I have performed the following: I have examined & evaluated the patient, The case was reviewed & discussed with the resident, I agree w/resident's findings & plan - HPI HPI: 12/09/17 04:10 Pt comes with SOB from [facility]. He reeks of alcohol due to the fact that he drank vodka and beer, and then returned to the [facility] detox. Pt is a 1PPD smoker. Pt is afebrile. - Physicial Exam PE: 12/09/17 04:12 Pt has bilateral wheezing. He is afebrile. He is refusing CXR. However, we will treat with duonebs and decadron, and if pt feels better, he will be returned to [facility]. Rest of exam normal. - Medical Decision Making 12/09/17 04:14 EKG NSR. CXR pending - pt refusing cxr at this time. However, if his lungs do not sound better, I will try and convice him to take the CXR.
[2017-12-09 03:45] VITALS: BMI 25.1
[2017-12-09] MEDS ORDERED: ALBUTEROL SO4 2.5/IPRATROPIUM 0.5 INH SOL 3 ML VIAL.NEB. NEB ONE ×2 (04:00→04:03)
[2017-12-09] MEDS ORDERED: DEXAMETHASONE SOD PHOSPHATE 10 MG/1 ML VIAL IVPUSH ONE (04:01)
[2017-12-09] MEDS ORDERED: DEXAMETHASONE SOD PHOSPHATE 10 MG/1 ML VIAL ONE (04:04)
[2017-12-09 08:45] VITALS: BP 153/70; PULSE 74; TEMP 98.3
--- NOTE | 2017-12-09 12:38 | EKG ---
Test Reason : Blood Pressure : / mmHG Vent. Rate : 074 BPM Atrial Rate : 074 BPM P-R Int : 146 ms QRS Dur : 094 ms QT Int : 404 ms P-R-T Axes : 065 019 060 degrees QTc Int : 448 ms NORMAL SINUS RHYTHM INCOMPLETE RBBB WHEN COMPARED WITH ECG OF 01-NOV-2017 17:41, NO SIGNIFICANT CHANGE WAS FOUND Confirmed by CASSIDY SAMSON MD ([id number]) on 12/09/2017 12:37:58 PM Referred By: Confirmed By:CASSIDY SAMSON MD
== END 2017-12-09 08:25 | disposition other institution (70) ==
LOC: JER 03:17
PROC: 3E0F7GC Introduction of Other Therapeutic Substance into Respiratory Tract, Via Natural or Artificial Opening (ICD-10-PCS; principal; 2017-12-09)
PROC: 3E0333Z Introduction of Anti-inflammatory into Peripheral Vein, Percutaneous Approach (ICD-10-PCS; 2017-12-09)
DX: J45.901 Unspecified asthma with (acute) exacerbation (principal); I10 Essential (primary) hypertension; K74.60 Unspecified cirrhosis of liver; F11.10 Opioid abuse, uncomplicated; F10.10 Alcohol abuse, uncomplicated; F14.10 Cocaine abuse, uncomplicated; F16.10 Hallucinogen abuse, uncomplicated; F12.10 Cannabis abuse, uncomplicated
CPT/HCPCS: 71045-TC-FY; 93005; 93010; 94640; 96374; 99281-25; J1100

== ENCOUNTER 2018-05-02 15:56 | Emergency (ER) | payer OTHER ==
[2018-05-02] MEDS ORDERED: DEXAMETHASONE SOD PHOSPHATE 10 MG/1 ML VIAL ONE (16:45)
[2018-05-02 16:54] VITALS: BP 93/61; PULSE 75; TEMP 99.7; BMI 23.1
--- NOTE | 2018-05-02 18:07 | PDOC ---
History of Present Illness - General Chief Complaint: Syncope/Near Syncope Stated Complaint: ASTHMA - History of Present Illness Initial Comments: Mario Loredo is a 58yo man with a PMH of Hep C, asthma, and polysubstance abuse (opioid, cocaine, alcohol, PCP, THC) who presents with possible unwitnessed syncope. He states that he went to visit his girlfriend at [facility] and took a cab here. He later states he was taking metal to the [facility] yard and then woke up with people around him. Mr Loredo becomes angry and starts swearing when asked to clarify. He denies any drug or alcohol use today, saying that he doesn't do that anymore. Per EMS, Mr Loredo reported an asthma attack and they noted wheezing. He received 2 nebulizer treatments and 10mg decadron prior to arrival. Past History - Past Medical History Allergies/Adverse Reactions: Allergies Allergy/AdvReac Type Severity Reaction Status Date / Time No Known Drug Allergies Allergy Verified 05/02/18 16:25 lactose AdvReac Vomiting Verified 05/02/18 16:25 NKDA Allergy Uncoded 05/02/18 16:25 mayonnaise AdvReac Vomiting Uncoded 05/02/18 16:25 Home Medications: Ambulatory Orders Unobtainable 05/02/18 Anemia: No Asthma: Yes (on albuerol inhaler) Cancer: No Cardiac Disorders: No CVA: No COPD: No CHF: No Dementia: No Diabetes: No GI Disorders: Yes (bleeding ulcer) Disorders: No HTN: Yes Hypercholesterolemia: No Kidney Stones: No Liver Disease: Yes (cirrhosis) Seizures: No Thyroid Disease: No - Surgical History Abdominal Surgery: No Appendectomy: No Cardiac Surgery: No Cholecystectomy: No Lung Surgery: No Neurologic Surgery: No Orthopedic Surgery: Yes (lower back (fall) discectomy 20 years ago) - Reproductive History Testicular Surgery: No - Suicide/Smoking/Psychosocial Hx Smoking History: Current every day smoker Have you smoked in the past 12 months: Yes Number of Cigarettes Smoked Daily: 2 Cigars Per Day: 5 Information on smoking cessation initiated: No 'Breaking Loose' booklet given: 12/09/17 Hx Alcohol Use: No Drug/Substance Use Hx: No Substance Use Type: Alcohol Hx Substance Use Treatment: Yes ([facility]) Review of Systems - Review of Systems Comments:: 05/02/18 18:16 Unwilling to provide *Physical Exam - Vital Signs Last Vital Signs Temp Pulse Resp BP Pulse Ox 99.7 F H 75 16 93/61 98 05/02/18 16:25 05/02/18 16:25 05/02/18 16:25 05/02/18 16:25 05/02/18 16:25 - Physical Exam Comments: General: In no acute distress HEENT: PERRL, EOMI, MMM, voice normal Cards: RRR Pulm: Comfortable on room air, clear to auscultation bilaterally, no wheezing appreciated Abd: Soft, nontender, nondistended Ext: Atraumatic. No LE edema. Moves all extremities Neuro: Sleeping but easily wakened. Alert, CN grossly intact, normal speech Psych: Uncooperative, swearing at staff ED Treatment Course - LABORATORY CBC & Chemistry Diagram: 05/02/18 16:13 05/02/18 16:13 - RADIOLOGY Radiology Studies Ordered: Category Date Time Status CERVICAL SPINE CT W/O CONTR [CT] Stat CT Scan 05/02/18 18:[address] WITHOUT CONTRAST [CT] Stat CT Scan 05/02/18 18:01 Ordered CHEST X-RAY PORTABLE* [RAD] Stat Radiology 05/02/18 18:01 Ordered Medical Decision Making - Medical Decision Making 05/02/18 18:03 Mario Loredo is a 58yo man with a PMH of Hep C, asthma, and polysubstance abuse (opioid, cocaine, alcohol, PCP, THC) who presents with possible unwitnessed syncope v fall, initially reporting an asthma attack that has now apparently resolved. He is unwilling to provide any additional information. - Per EMS, had wheezing and SOB. Received nebs x2 and decadron. Wheezing and SOB currently resolved. - Pt gives conflicting information (states he was walking to the scrap [place], then states he was in a taxi) and began swearing when asked to clarify - Could be syncope due to orthostatics, arrhythmia, vasovagal, v mechanical fall , intoxication. - Now denying pain, initially stated he had neck pain per EMS - CT head and c-spine for evaluation - CBC, CMP, mag, phos, alcohol level, UA, urine tox, EKG, CXR 05/02/18 19:29 - Labs reviewed. No concerning abnormalities. - Alcohol 100 - EKG w/ NSR, normal EKG - Declined CXR. Discussed reason for ordering CXR w/ Mr Loredo, who states that it is unnecessary. He states that nothing has been done so far; states he does not remember blood draw or EKG. - To CT 05/02/18 21:33 - CT's completed. No acute fracture or bleed noted - UA and Urine drug screen completed, both negative - Again swearing and yelling at ED staff. States no one here is doing anything. Demanding a second meal. - Observed ambulating in the ED without difficulty, belligerent to other patients and staff. - Given that workup has been unremarkable and Mr Loredo is alert, oriented, clinically sober, and denying any focal complaints, will d/c home with PMD follow up. Discussed with Dr Sotelo. Manuela Nguyen PGY1 *DC/Admit/Observation/Transfer Diagnosis at time of Disposition: Alcohol abuse - Discharge Dispostion Disposition: HOME Condition at time of disposition: Stable Decision to Admit order: No - Referrals Referrals: Keyona Henderson MD [Primary Care Provider] - - Patient Instructions Printed Discharge Instructions: DI for Alcohol Abuse Additional Instructions: Discharge Instructions: - You were seen in the ED following a possible fainting episode. All of your blood tests, urine test, and CT scans were negative. You were noted to have a blood alcohol of 102. - Continue to take all of your regular medications at home as previously prescribed. - It is strongly recommended that you consider rehab or detox - Please make an appointment to see your regular doctor within the next week for follow up - Seek immediate medical care if you have any worsening of your symptoms or medical emergency. - Post Discharge Activity
[2018-05-02 18:36] LABS: BASO % 0.3 % (0-2.0); EOS % 0.1 % (0-4.5); HEMOGLOBIN 12.4 GM/dL (11.7-16.9); LYMPH % 4.3 % (8-40); MCH 31.8 pg (25.7-33.7); MCHC 33.6 g/dl (32.0-35.9); MEAN CELL VOLUME 94.7 fl (80-96); MONO % 2.8 % (3.8-10.2); NEUT % 92.5 % (42.8-82.8); PLATELET COUNT 334 K/MM3 (134-434); RBC 3.91 M/mm3 (4.00-5.60); RDW 12.5 % (11.9-15.9); WHITE BLOOD COUNT 9.2 K/mm3 (4.0-10.0)
[2018-05-02 18:58] LABS: ALBUMIN 3.4 g/dl (3.4-5.0); ALK PHOS 74 U/L (45-117); ANION GAP 9 MMOL/L (8-16); BILIRUBIN,TOTAL 0.4 mg/dL (0.2-1); BLOOD UREA NITROGEN 40 mg/dL (7-18); CALCIUM 8.3 mg/dL (8.5-10.1); CHLORIDE 107 mmol/L (98-107); CO2 23 mmol/L (21-32); GLUCOSE,RANDOM 71 mg/dL (74-106); MAGNESIUM 2.7 mg/dL (1.8-2.4); PHOSPHOROUS 2.9 mg/dL (2.5-4.9); POTASSIUM 4.7 mmol/L (3.5-5.1); SGOT/AST 40 U/L (15-37); SGPT/ALT 21 U/L (13-61); SODIUM 139 mmol/L (136-145); TOT PROT 6.9 g/dl (6.4-8.2)
--- NOTE | 2018-05-02 19:17 | PDOC ---
Attending Attestation - HPI HPI: 05/02/18 19:42 Patient is a 58 year old male with a significant past medical history of Asthma , Hypertension, Liver cirrhosis, Hep C, Depression, Schizophrenia, polysubstance abuse (opioid, cocaine, alcohol, PCP, THC), who presents to the ED with complaints of unwitnessed syncopal episode that occurred just prior to ED arrival. Patient reports going to visit his girlfriend at [facility] and took a cab here. He later states he was taking metal to the scrap yard and then woke up with people around him. Mr Loredo becomes angry and starts swearing when asked to clarify. He denies any drug or alcohol use today, saying that he doesn't do that anymore. Denies chest pain, Sob. Denies nausea, vomiting. Denies fevers, chills. Denies dysuria, hematuria. Denies constipation, diarrhea. Denies contact with sick individuals, out of state travelling. Denies any other symptoms. Allergies: Lactose, Mayonnaise Social history: No smoking. Polysubstance abuse. Surgical history: None PMD: Dr. Henderson - Physicial Exam PE: 05/02/18 19:42 Agree with residents Physical Exam. <Donny Deshpande - Last Filed: 05/02/18 19:42> - Resident Resident Name: Manuela Nguyen - ED Attending Attestation I have performed the following: I have examined & evaluated the patient, The case was reviewed & discussed with the resident, I agree w/resident's findings & plan - Medical Decision Making 05/02/18 21:38 Patient's ambulating in the emergency department complaining about dropping water on the floor He is alert and oriented 4 with steady gait He has been argumentative with staff Evaluation significant for elevated blood alcohol level Patient is not clinically intoxicated at this time He will be discharged home as he has no further complaints in regards to medical care at this time <Kristy Sotelo - Last Filed: 05/02/18 21:39>
[2018-05-02 20:26] LABS: PLATELET ESTIMATE ADEQUATE
[2018-05-02 21:07] LABS: URINE APPEARANCE CLEAR; URINE BILIRUBIN NEGATIVE (NEGATIVE); URINE COLOR YELLOW; URINE GLUCOSE (UA) NEGATIVE (NEGATIVE); URINE KETONE NEGATIVE (NEGATIVE); URINE LEUK ESTERASE NEGATIVE (NEGATIVE); URINE NITRITE NEGATIVE (NEGATIVE); URINE PROTEIN NEGATIVE (NEGATIVE); URINE UROBILINOGEN 0.2 mg/dL (0.2-1.0)
[2018-05-02 21:25] LABS: COCAINE, UR NEGATIVE ng/ml (CUTOFF=300); OPIATES, URI NEGATIVE ng/ml (CUTOFF=300); PHENCYCLIDINE,URINE NEGATIVE ng/ml (CUTOFF=25); URINE AMPHETAMINES NEGATIVE ng/ml (CUTOFF=500); URINE BARBITURATES NEGATIVE ng/ml (CUTOFF=200); URINE BENZODIAZEPINES NEGATIVE ng/ml (CUTOFF=200)
[2018-05-02 21:47] LABS: METHADONE, UR POSITIVE ng/ml (CUTOFF=300)
--- NOTE | 2018-05-03 11:49 | EKG ---
Test Reason : Blood Pressure : / mmHG Vent. Rate : 075 BPM Atrial Rate : 075 BPM P-R Int : 148 ms QRS Dur : 096 ms QT Int : 422 ms P-R-T Axes : 070 049 065 degrees QTc Int : 471 ms NORMAL SINUS RHYTHM NORMAL ECG WHEN COMPARED WITH ECG OF 09-DEC-2017 04:12, NO SIGNIFICANT CHANGE WAS FOUND Confirmed by SKINNY BARRERA MD ([id number]) on 05/03/2018 11:48:53 AM Referred By: Confirmed By:SKINNY BARRERA MD
== END 2018-05-02 22:57 | disposition home or self-care (01) ==
LOC: JER 15:56
DX: R55 Syncope and collapse (principal); B19.20 Unspecified viral hepatitis C without hepatic coma; F19.10 Other psychoactive substance abuse, uncomplicated
CPT/HCPCS: 36415; 70450-TC; 72125-TC; 80053; 80307; 81003; 82550; 82553; 83735; 84100; 84484; 85025; 93005; 93010; 99283-25

== ENCOUNTER 2018-06-12 13:42 | Emergency (ER) | payer OTHER ==
[2018-06-12 14:26] VITALS: BP 107/80; PULSE 74; TEMP 97.6; BMI 23.5
--- NOTE | 2018-06-12 14:26 | PDOC ---
History of Present Illness - General Chief Complaint: Pain Stated Complaint: pain Time Seen by Provider: 06/12/18 14:17 - History of Present Illness Initial Comments: 06/12/18 14:26 Mr. Loredo is a 58 yo male w/ pmh of HCV (s/p treatment), asthma, substance abuse (opioids on methadone, prior cocaine, alcohol, PCP, and THC) who presents for evaluation of 5 days of defuse, increasing abdominal pain. Patient reports this has been intermittent for the last 2 years. Patient reports he drank a pint of vodka last night. Pain has improved following methadone administration today. Currently complaining of difficulty breathing. The patient denies chest pain, headache and dizziness. Denies fever, chills, nausea, vomit, diarrhea and constipation. Denies dysuria, frequency, urgency and hematuria. Past History - Past Medical History Allergies/Adverse Reactions: Allergies Allergy/AdvReac Type Severity Reaction Status Date / Time No Known Drug Allergies Allergy Verified 05/02/18 16:25 lactose AdvReac Vomiting Verified 05/02/18 16:25 NKDA Allergy Uncoded 05/02/18 16:25 mayonnaise AdvReac Vomiting Uncoded 05/02/18 16:25 Home Medications: Ambulatory Orders Mirtazapine [Remeron -] 30 mg PO HS #30 tablet 05/30/18 Quetiapine Fumarate [Seroquel -] 50 mg PO HS #30 tablet 05/30/18 Anemia: No Asthma: Yes (on albuerol inhaler) Cancer: No Cardiac Disorders: No CVA: No COPD: No CHF: No Dementia: No Diabetes: No GI Disorders: Yes (bleeding ulcer) Disorders: No HTN: Yes Hypercholesterolemia: No Kidney Stones: No Liver Disease: Yes (cirrhosis) Seizures: No Thyroid Disease: No - Surgical History Abdominal Surgery: No Appendectomy: No Cardiac Surgery: No Cholecystectomy: No Lung Surgery: No Neurologic Surgery: No Orthopedic Surgery: Yes (lower back (fall) discectomy 20 years ago) - Reproductive History Testicular Surgery: No - Suicide/Smoking/Psychosocial Hx Smoking History: Current every day smoker Have you smoked in the past 12 months: Yes Number of Cigarettes Smoked Daily: 10 Cigars Per Day: 5 Information on smoking cessation initiated: No 'Breaking Loose' booklet given: 12/09/17 Hx Alcohol Use: No Drug/Substance Use Hx: No Substance Use Type: Alcohol Hx Substance Use Treatment: Yes ([facility]) Review of Systems - Review of Systems Comments:: 06/12/18 14:29 GENERAL/CONSTITUTIONAL: No fever or chills. No weakness. HEAD, EYES, EARS, NOSE AND THROAT: No change in vision. No ear pain or discharge. No sore throat. CARDIOVASCULAR: +Shortness of breath currently. No chest pain RESPIRATORY: No cough, wheezing, or hemoptysis. GASTROINTESTINAL: +Diffuse abdominal pain now resolved. No nausea, vomiting, diarrhea or constipation. GENITOURINARY: No dysuria, frequency, or change in urination. MUSCULOSKELETAL: No joint or muscle swelling or pain. No neck or back pain. SKIN: No rash NEUROLOGIC: No headache, vertigo, loss of consciousness, or change in strength/ sensation. ENDOCRINE: No increased thirst. No abnormal weight change HEMATOLOGIC/LYMPHATIC: No anemia, easy bleeding, or history of blood clots. ALLERGIC/IMMUNOLOGIC: No hives or skin allergy. *Physical Exam - Vital Signs Last Vital Signs Temp Pulse Resp BP Pulse Ox 97.6 F 74 16 107/80 95 06/12/18 13:45 06/12/18 13:45 06/12/18 13:45 06/12/18 13:45 06/12/18 13:45 ED Treatment Course - LABORATORY CBC & Chemistry Diagram: 06/12/18 14:35 06/12/18 14:35 Medical Decision Making - Medical Decision Making 06/12/18 16:07 Mr. Loredo is a 58 yo male w/ pmh as described who presents for evaluation of abdominal pain resolved before arrival. Patient evaluated with labs as below as well as CXR and EKG. Patient given breathing treatment for reported shortness of breath. Patient labs grossly wnl, CXR negative, EKG unchanged. Patient breathing improved following single treatment and no other acute findings found. No concern for acute process at this time and patient given GI f/u for outpatient use. Discharging patient to home for further evaluation as needed. Laboratory Results - last 24 hr 06/12/18 06/12/18 14:35 14:35 WBC 6.7 RBC 4.31 Hgb 13.8 Hct 40.2 MCV 93.2 MCH 31.9 MCHC 34.2 RDW 12.6 Plt Count 267 D MPV 7.9 Absolute Neuts (auto) 2.6 Neutrophils % 38.3 L D Lymphocytes % 50.2 H D Monocytes % 8.5 D Eosinophils % 1.8 D Basophils % 1.2 D Nucleated RBC % 0 Sodium 134 L Potassium 4.3 Chloride 100 Carbon Dioxide 24 Anion Gap 10 BUN 20 H Creatinine 1.1 Creat Clearance w eGFR 68.75 Random Glucose 68 L Calcium 8.9 Total Bilirubin 0.3 AST 55 H ALT 24 Alkaline Phosphatase 71 Creatine Kinase 152 Creatine Kinase Index 1.7 CK-MB (CK-2) 2.7 Troponin I < 0.02 Total Protein 7.1 Albumin 3.4 *DC/Admit/Observation/Transfer Diagnosis at time of Disposition: Shortness of breath Abdominal pain Qualifiers: Abdominal location: unspecified location Qualified Code(s): R10.9 - Unspecified abdominal pain - Discharge Dispostion Disposition: HOME - Referrals Referrals: Keyona Henderson MD [Primary Care Provider] - Raleigh Triana MD [Staff Physician] - - Patient Instructions Printed Discharge Instructions: DI for Abdominal Pain-Adult, DI for Shortness of Breath Additional Instructions: You were evaluated today in the ER for your abdominal pain which resolved before arrival. No concerning findings were found on laboratory evaluation or X- ray. Please follow-up with gastroenterology using provided information. You may take over the counter motrin or tylenol as needed for pain control. Return to ER if any further exacerbation of pain, fever, chills, or other concerning symtpoms. - Post Discharge Activity
[2018-06-12] MEDS ORDERED: ALBUTEROL SO4 2.5/IPRATROPIUM 0.5 INH SOL 3 ML VIAL.NEB. NEB ONE (14:31)
[2018-06-12 15:02] LABS: BASO % 1.2 % (0-2.0); EOS % 1.8 % (0-4.5); HEMATOCRIT 40.2 % (35.4-49); HEMOGLOBIN 13.8 GM/dL (11.7-16.9); LYMPH % 50.2 % (8-40); MCH 31.9 pg (25.7-33.7); MCHC 34.2 g/dl (32.0-35.9); MEAN CELL VOLUME 93.2 fl (80-96); MEAN PLT VOLUME 7.9 fl (7.5-11.1); MONO % 8.5 % (3.8-10.2); NEUT % 38.3 % (42.8-82.8); PLATELET COUNT 267 K/MM3 (134-434); RBC 4.31 M/mm3 (4.00-5.60); RDW 12.6 % (11.9-15.9); WHITE BLOOD COUNT 6.7 K/mm3 (4.0-10.0)
[2018-06-12 15:27] LABS: ALBUMIN 3.4 g/dl (3.4-5.0); ALK PHOS 71 U/L (45-117); ANION GAP 10 MMOL/L (8-16); BILIRUBIN,TOTAL 0.3 mg/dL (0.2-1); BLOOD UREA NITROGEN 20 mg/dL (7-18); CALCIUM 8.9 mg/dL (8.5-10.1); CHLORIDE 100 mmol/L (98-107); CO2 24 mmol/L (21-32); CREATININE 1.1 mg/dL (0.55-1.3); GLUCOSE,RANDOM 68 mg/dL (74-106); POTASSIUM 4.3 mmol/L (3.5-5.1); SGOT/AST 55 U/L (15-37); SGPT/ALT 24 U/L (13-61); SODIUM 134 mmol/L (136-145); TOT PROT 7.1 g/dl (6.4-8.2)
--- NOTE | 2018-06-12 16:25 | PDOC ---
Documentation entered by Vivian Andersen SCRIBE, acting as scribe for Juana Montoya MD. Juana Montoya MD: This documentation has been prepared by the Nathaly howard Amanda, SCRIBE, under my direction and personally reviewed by me in its entirety. I confirm that the documentation accurately reflects all work, treatment, procedures, and medical decision making performed by me. Attending Attestation - Resident Resident Name: VladMiah - ED Attending Attestation I have performed the following: I have examined & evaluated the patient, The case was reviewed & discussed with the resident, I agree w/resident's findings & plan, Exceptions are as noted - HPI HPI: 06/12/18 14:30 The patient is a 58 year old male with a significant past medical history of Hep C, asthma, and polysubstance abuse (opioid, cocaine, alcohol, PCP, THC) who presents to the ED for complaint of intermittent diffuse abdominal pain for a few days. He denies having the pain at this time. Allergies: NKDA - Physicial Exam PE: 06/12/18 15:30 GENERAL: Awake, alert, and fully oriented, in no acute distress HEAD: No signs of trauma EYES: PERRLA, EOMI, sclera anicteric, conjunctiva clear ENT: Auricles normal inspection, hearing grossly normal, nares patent, oropharynx clear without exudates. Moist mucosa NECK: Normal ROM, supple, no lymphadenopathy, JVD, or masses LUNGS: Breath sounds equal, clear to auscultation bilaterally. No wheezes, and no crackles HEART: Regular rate and rhythm, normal S1 and S2, no murmurs, rubs or gallops ABDOMEN: Soft, nontender, normoactive bowel sounds. No guarding, no rebound. No masses EXTREMITIES: Normal range of motion, no edema. No clubbing or cyanosis. No cords, erythema, or tenderness NEUROLOGICAL: Cranial nerves II through XII grossly intact. Normal speech, normal gait SKIN: Warm, Dry, normal turgor, no rashes or lesions noted. - Medical Decision Making 06/12/18 16:22 Pt presents to the Ed complaining of intermittent abdominal pain for the last several days that resolved after taking methadone. Abdomen non tender on my exam. tolerating PO in the ED. Low risk for obstruction, abscess, or other concerning intra abdominal pathology. Will discharge home with referral to GI.
--- NOTE | 2018-06-13 08:29 | EKG ---
Test Reason : Blood Pressure : / mmHG Vent. Rate : 074 BPM Atrial Rate : 074 BPM P-R Int : 146 ms QRS Dur : 090 ms QT Int : 406 ms P-R-T Axes : 078 058 072 degrees QTc Int : 450 ms NORMAL SINUS RHYTHM MODERATE VOLTAGE CRITERIA FOR LVH, MAY BE NORMAL VARIANT BORDERLINE ECG WHEN COMPARED WITH ECG OF 02-MAY-2018 16:21, NO SIGNIFICANT CHANGE WAS FOUND Confirmed by MITCH BARBER, CLAY ([id number]) on 06/13/2018 8:28:42 AM Referred By: Confirmed By:CLAY MEYER MD
== END 2018-06-12 16:56 | disposition home or self-care (01) ==
LOC: JER 13:42
PROC: 3E0F7GC Introduction of Other Therapeutic Substance into Respiratory Tract, Via Natural or Artificial Opening (ICD-10-PCS; principal; 2018-06-12)
DX: R10.9 Unspecified abdominal pain (principal); J45.909 Unspecified asthma, uncomplicated; F19.10 Other psychoactive substance abuse, uncomplicated; F10.10 Alcohol abuse, uncomplicated; K74.60 Unspecified cirrhosis of liver; Z86.19 Personal history of other infectious and parasitic diseases
CPT/HCPCS: 36415; 71045-TC-FY; 80053; 82550; 82553; 84484; 85025; 93005; 93010; 94640; 99281-25

== ENCOUNTER 2020-12-23 12:23 | Inpatient (IN) | payer OTHER ==
[2020-12-23 13:01] VITALS: BMI 23.8
[2020-12-23] MEDS ORDERED: BISMUTH SUBSALICYLATE 262 MG/15 ML BTL PO PRN (13:12)
[2020-12-23] MEDS ORDERED: ONDANSETRON *ODT* 4 MG TABLET SL PRN (13:12)
[2020-12-23] MEDS ORDERED: MAGNESIUM CITRATE 300 ML BOTTLE PO PRN (13:12)
[2020-12-23] MEDS ORDERED: MAG HYDROX/AL HYDROX/SIMETH 30 ML UNIT-DOSE CUP PO PRN (13:12)
[2020-12-23] MEDS ORDERED: MAGNESIUM HYDROX 2400MG/30ML ORAL SUSPENSION 30 ML CUP PO PRN (13:12)
[2020-12-23] MEDS ORDERED: IBUPROFEN 400 MG TABLET (FP) PO PRN (13:12)
[2020-12-23] MEDS ORDERED: MENTHOL/PHENOL 1 EACH UD MM PRN (13:12)
[2020-12-23] MEDS ORDERED: ACETAMINOPHEN 325 MG TABLET (FP) PO PRN ×2 (13:12)
[2020-12-23] MEDS: hydrOXYzine PAMOATE 25 MG CAPSULE (FP) PO SCH ×3 (15:35→21:29)
[2020-12-23] MEDS: PRENATAL VITAMINS W/ FOLIC ACID TABLET (FP) PO SCH (15:35)
[2020-12-23] MEDS: NICOTINE 14 MG/24 HOURS TOPICAL PATCH TD SCH (15:35)
[2020-12-23 19:00] LABS: HEMATOCRIT 41.7 % (35.4-49); HEMOGLOBIN 14.1 GM/dL (11.7-16.9); MCH 31.6 pg (25.7-33.7); MCHC 33.8 g/dl (32.0-35.9); MEAN CELL VOLUME 93.4 fl (80-96); MEAN PLT VOLUME 8.7 fl (7.5-11.1); PLATELET COUNT 258 10^3/uL (134-434); RBC 4.46 M/mm3 (4.00-5.60); RDW 12.9 % (11.9-15.9)
[2020-12-23 19:03] LABS: ALBUMIN 3.7 g/dl (3.4-5.0); BLOOD UREA NITROGEN 10.8 mg/dL (7-18); CALCIUM 8.7 mg/dL (8.5-10.1)
[2020-12-23 19:06] LABS: CREATININE 0.9 mg/dL (0.55-1.3)
[2020-12-23 19:08] LABS: BILIRUBIN,TOTAL 0.9 mg/dL (0.2-1); TOT PROT 6.8 g/dl (6.4-8.2)
[2020-12-23] MEDS: THIAMINE HCL 100 MG TABLET (FP) PO SCH (21:28)
[2020-12-23] MEDS: MELATONIN 5 MG TABLETS PO SCH (21:29)
[2020-12-24] MEDS: hydrOXYzine PAMOATE 25 MG CAPSULE (FP) PO SCH ×5 (06:43→22:10)
[2020-12-24] MEDS ORDERED: cloNIDine HCL 0.1 MG TABLET PO PRN (09:32)
[2020-12-24] MEDS ORDERED: methaDONE HCL 10 MG TABLET (FOR DETOX USE ONLY) PO ONE (09:32)
[2020-12-24] MEDS: NICOTINE 14 MG/24 HOURS TOPICAL PATCH TD SCH (11:00)
[2020-12-24] MEDS: PRENATAL VITAMINS W/ FOLIC ACID TABLET (FP) PO SCH (11:00)
[2020-12-24] MEDS: diazePAM 5 MG TABLET PO SCH ×3 (11:05→22:10)
[2020-12-24] MEDS ORDERED: FLU VACC QS2021-22(6MOS UP)/PF 60 MCG/0.5 ML SYRINGE IM ONE (12:00)
[2020-12-24] MEDS: NICOTINE 10 MG CARTRIDGE (INHALER) IH PRN (16:21)
[2020-12-24] MEDS: THIAMINE HCL 100 MG TABLET (FP) PO SCH (22:10)
[2020-12-24] MEDS: MELATONIN 5 MG TABLETS PO SCH (22:10)
[2020-12-25] MEDS: hydrOXYzine PAMOATE 25 MG CAPSULE (FP) PO SCH ×5 (06:09→22:17)
[2020-12-25] MEDS: diazePAM 5 MG TABLET PO SCH ×4 (06:09→22:16)
[2020-12-25] MEDS ORDERED: methaDONE HCL 10 MG TABLET (FOR DETOX USE ONLY) ONE (09:29)
[2020-12-25] MEDS: METHOCARBAMOL 500 MG TABLET PO PRN (10:21)
[2020-12-25] MEDS: NICOTINE 14 MG/24 HOURS TOPICAL PATCH TD SCH (10:22)
[2020-12-25] MEDS: PRENATAL VITAMINS W/ FOLIC ACID TABLET (FP) PO SCH (10:22)
[2020-12-25] MEDS: MELATONIN 5 MG TABLETS PO SCH (22:17)
[2020-12-25] MEDS: THIAMINE HCL 100 MG TABLET (FP) PO SCH (22:17)
[2020-12-26] MEDS: hydrOXYzine PAMOATE 25 MG CAPSULE (FP) PO SCH ×5 (05:39→22:40)
[2020-12-26] MEDS: diazePAM 5 MG TABLET PO SCH ×3 (05:39→22:40)
[2020-12-26] MEDS ORDERED: methaDONE HCL 10 MG TABLET (FOR DETOX USE ONLY) PO ONE (10:00)
[2020-12-26] MEDS: METHOCARBAMOL 500 MG TABLET PO PRN (10:22)
[2020-12-26] MEDS: diazePAM 5 MG TABLET PO PRN (10:22)
[2020-12-26] MEDS: NICOTINE 14 MG/24 HOURS TOPICAL PATCH TD SCH (10:23)
[2020-12-26] MEDS: PRENATAL VITAMINS W/ FOLIC ACID TABLET (FP) PO SCH (10:23)
[2020-12-26] MEDS: THIAMINE HCL 100 MG TABLET (FP) PO SCH (22:40)
[2020-12-26] MEDS: MELATONIN 5 MG TABLETS PO SCH (22:41)
[2020-12-26] MEDS: NICOTINE 10 MG CARTRIDGE (INHALER) IH PRN (22:44)
[2020-12-27] MEDS: hydrOXYzine PAMOATE 25 MG CAPSULE (FP) PO SCH ×5 (05:21→22:23)
[2020-12-27] MEDS: diazePAM 5 MG TABLET PO SCH ×2 (05:21→18:03)
[2020-12-27] MEDS ORDERED: methaDONE HCL 10 MG TABLET (FOR DETOX USE ONLY) ONE (09:28)
[2020-12-27] MEDS: diazePAM 5 MG TABLET PO PRN (09:30)
[2020-12-27] MEDS: NICOTINE 14 MG/24 HOURS TOPICAL PATCH TD SCH (09:59)
[2020-12-27] MEDS: PRENATAL VITAMINS W/ FOLIC ACID TABLET (FP) PO SCH (10:00)
[2020-12-27] MEDS: METHOCARBAMOL 500 MG TABLET PO PRN (10:01)
[2020-12-27] MEDS: MELATONIN 5 MG TABLETS PO SCH (22:23)
[2020-12-27] MEDS: THIAMINE HCL 100 MG TABLET (FP) PO SCH (22:23)
[2020-12-28] MEDS: hydrOXYzine PAMOATE 25 MG CAPSULE (FP) PO SCH ×5 (05:22→22:15)
[2020-12-28] MEDS ORDERED: diazePAM 5 MG TABLET PO ONE (06:00)
[2020-12-28] MEDS ORDERED: methaDONE HCL 10 MG TABLET (FOR DETOX USE ONLY) PO ONE (10:00)
[2020-12-28] MEDS: NICOTINE 14 MG/24 HOURS TOPICAL PATCH TD SCH (10:11)
[2020-12-28] MEDS: METHOCARBAMOL 500 MG TABLET PO PRN (10:11)
[2020-12-28] MEDS: PRENATAL VITAMINS W/ FOLIC ACID TABLET (FP) PO SCH (10:11)
[2020-12-28] MEDS: MELATONIN 5 MG TABLETS PO SCH (22:14)
[2020-12-28] MEDS: THIAMINE HCL 100 MG TABLET (FP) PO SCH (22:15)
[2020-12-29] MEDS: hydrOXYzine PAMOATE 25 MG CAPSULE (FP) PO SCH (06:00)
[2020-12-29 09:33] VITALS: BP 128/82; PULSE 94; TEMP 97.6
== END 2020-12-29 09:57 | disposition home or self-care (01) | DRG 773 ==
LOC: YASAS 12:23 → Y3N 13:34 → UNDOADMIN 13:34
PROVIDERS: ADMIT Allergy & Immunology; ATTEND Allergy & Immunology
PROC: HZ2ZZZZ Detoxification Services for Substance Abuse Treatment (ICD-10-PCS; principal; 2020-12-23)
DX: F11.23 Opioid dependence with withdrawal (principal); F10.230 Alcohol dependence with withdrawal, uncomplicated; F12.20 Cannabis dependence, uncomplicated; F17.210 Nicotine dependence, cigarettes, uncomplicated; F32.A Depression, unspecified; F41.9 Anxiety disorder, unspecified; I10 Essential (primary) hypertension; J45.909 Unspecified asthma, uncomplicated; B18.2 Chronic viral hepatitis C; G56.03 Carpal tunnel syndrome, bilateral upper limbs; M54.50 Low back pain, unspecified; G89.29 Other chronic pain; Z86.19 Personal history of other infectious and parasitic diseases; Z86.69 Personal history of other diseases of the nervous system and sense organs; Z91.011 Allergy to milk products
CPT/HCPCS: 36415; 80053; 85027; 86780; 90686; C9803; G0008; U0003; U0005